=== PATIENT | female | born 1975 | race Caucasian/White ===

== ENCOUNTER 2018-08-04 18:26 | Emergency (ER) | payer MEDICAID ==
--- NOTE | 2018-08-04 19:16 | EDM.PDOC ---
ED HPI GENERAL MEDICAL PROBLEM - General Chief Complaint: ENT Problem Stated Complaint: FEVER AND SORE THROAT Time Seen by Provider: 08/04/18 18:56 Source of Information: Reports: Patient History Limitations: Reports: No Limitations - History of Present Illness INITIAL COMMENTS - FREE TEXT/NARRATIVE: Sick for about 1 week with mild aching and chills. a little sore throat and cough. Today seem like it's going into sinuses. Sent home from work. - Related Data Allergies Allergy/AdvReac Type Severity Reaction Status Date / Time codeine Allergy Hives Verified 08/04/18 18:46 meperidine [From Demerol] Allergy Nausea Verified 08/04/18 18:46 morphine Allergy Nausea Verified 08/04/18 18:46 venlafaxine [From Effexor] Allergy Diarrhea Verified 08/04/18 18:46 Home Meds: Home Meds NK [No Known Home Meds] 08/04/18 [History] Past Medical History Oncologic (Cancer) History: Reports: Breast - Past Surgical History HEENT Surgical History: Reports: Tonsillectomy GI Surgical History: Reports: Cholecystectomy Oncologic Surgical History: Reports: Mastectomy Social & Family History - Tobacco Use Smoking Status *Q: Former Smoker Used Tobacco, but Quit: Yes Month/Year Tobacco Last Used: 07/17 ED ROS ENT - Review of Systems Review Of Systems: ROS reveals no pertinent complaints other than HPI. ED EXAM, ENT - Physical Exam Exam: See Below Exam Limited By: No Limitations General Appearance: Alert, WD/WN, Mild Distress Eye Exam: Bilateral Eye: Normal Inspection Ears: Other (both tm's bulging slightly) Nose: Normal Inspection Mouth/Throat: Normal Inspection Head: Sinus Tenderness Neck: Normal Inspection Respiratory/Chest: Lungs Clear Cardiovascular: Regular Rate, Rhythm, No Murmur Extremities: Normal Inspection Neurological: Alert Psychiatric: Normal Affect Skin: Warm, Dry Course - Vital Signs Last Recorded V/S: Last Vital Signs Temp 35.6 C 08/04/18 18:53 Pulse 67 08/04/18 18:53 Resp 16 08/04/18 18:53 BP 140/86 08/04/18 18:53 Pulse Ox 98 08/04/18 18:53 Departure - Departure Time of Disposition: 19:16 Disposition: Home, Self-Care 01 Condition: Fair Clinical Impression: Sinusitis - Discharge Information Referrals: PCP,None [Primary Care Provider] - Additional Instructions: take the azithromycin as directed. Probably this began as a viral upper respiratory infection but now seems to be developing into a sinusitis. It may last another week.
== END 2018-08-04 19:24 | disposition home or self-care (01) ==
LOC: JP.ED 18:26
DX: J32.9 Chronic sinusitis, unspecified (principal); Z87.891 Personal history of nicotine dependence; Z88.5 Allergy status to narcotic agent; Z88.8 Allergy status to other drugs, medicaments and biological substances
CPT/HCPCS: 99283

== ENCOUNTER 2018-12-26 18:52 | Emergency (ER) | payer MEDICAID ==
[2018-12-26] MEDS ORDERED: Levothyroxine 112 MCG Tab PO ONE (19:53)
[2018-12-26] MEDS ORDERED: QUEtiapine 100 MG Tab PO STA (19:55)
[2018-12-26] MEDS ORDERED: FLUoxetine 20 MG Cap PO STA (19:56)
[2018-12-26] MEDS ORDERED: cloNIDine 0.1 MG Tab PO ONE (19:58)
--- NOTE | 2018-12-26 20:06 | EDM.PDOCBH ---
ED HPI GENERAL MEDICAL PROBLEM - General Chief Complaint: Behavioral/Psych Stated Complaint: SUICIDAL Time Seen by Provider: 12/26/18 19:50 Source of Information: Reports: Patient, EMS, RN History Limitations: Reports: No Limitations - History of Present Illness INITIAL COMMENTS - FREE TEXT/NARRATIVE: 43 yo female with an extensive psych hx presents mainly requesting refills of her clonidine. Has her other psych meds, but has been out of the clonidine for awhile due to missing her last 3 appts( two due to weather issues and one for a court hearing). Also, was taken off her thyroid medicine some time ago and would like this checked due to not feeling right. Is currently under a lot of stress and denies suicidal ideation. Onset: Gradual Duration: Week(s):, Getting Worse Location: Reports: Head, Generalized Quality: Reports: Other (no reported pain) Severity: Moderate Improves with: Reports: Medication Worsens with: Reports: Other (life stresses and being off her clonidine. ) Context: Reports: Other (increase in life stresses) Associated Symptoms: Reports: Other (insomnia) Treatments SUBSCRIPTION AGENT: Reports: Other (see below) (none) - Related Data Allergies Allergy/AdvReac Type Severity Reaction Status Date / Time adhesive tape Allergy Other Verified 12/26/18 19:31 codeine Allergy Hives Verified 12/26/18 19:31 cortisone Allergy Hives Verified 12/26/18 19:31 ketorolac [From Toradol] Allergy Other Verified 12/26/18 19:31 latex Allergy Rash Verified 12/26/18 19:31 lidocaine Allergy Swelling Verified 12/26/18 19:31 metoclopramide [From Reglan] Allergy Other Verified 12/26/18 19:31 venlafaxine [From Effexor] Allergy Diarrhea Verified 12/26/18 19:31 lorazepam [From Ativan] AdvReac Stomach Verified 12/26/18 19:31 Upset meperidine [From Demerol] AdvReac Nausea Verified 12/26/18 19:31 morphine AdvReac Nausea Verified 12/26/18 19:31 Home Meds: Home Meds FLUoxetine HCl [Prozac] 20 mg PO BEDTIME 11/22/18 [History] FLUoxetine HCl [Prozac] 40 mg PO DAILY 11/22/18 [History] Ibuprofen [Ibu] 800 mg PO QID PRN 11/22/18 [History] Nicotine [Habitrol] 14 mg TOP DAILY 11/22/18 [History] Omeprazole 40 mg PO DAILY 11/22/18 [History] QUEtiapine [SEROquel] 200 mg PO DAILY 11/22/18 [History] traZODone HCl [Trazodone HCl] 300 mg PO BEDTIME 11/22/18 [History] cloNIDine [cloNIDine HCl] 0.2 mg PO QID PRN 12/26/18 [History] Past Medical History Gastrointestinal History: Reports: [employer] History: Reports: Psychiatric History: Reports: Anxiety, Bipolar, Depression, Psych Hospitalization(s) Endocrine/Metabolic History: Reports: Hypothyroidism Oncologic (Cancer) History: Reports: Breast - Past Surgical History HEENT Surgical History: Reports: Tonsillectomy GI Surgical History: Reports: Cholecystectomy Female Surgical History: Reports: Breast Reconstruction, Hysterectomy, Oophorectomy Oncologic Surgical History: Reports: Mastectomy Social & Family History - Tobacco Use Smoking Status *Q: Former Smoker Used Tobacco, but Quit: Yes Month/Year Tobacco Last Used: gavi campos - Caffeine Use Caffeine Use: Reports: Coffee, Soda - Recreational Drug Use Recreational Drug Use: Yes Drug Use in Last 12 Months: Yes Recreational Drug Type: Reports: Marijuana/Hashish Recreational Drug Use Frequency: Socially ED ROS GENERAL - Review of Systems Review Of Systems: See Below Constitutional: Reports: Weight Loss HEENT: Reports: No Symptoms Respiratory: Reports: No Symptoms Cardiovascular: Reports: No Symptoms Endocrine: Reports: No Symptoms GI/Abdominal: Reports: No Symptoms : Reports: No Symptoms Musculoskeletal: Reports: No Symptoms Skin: Reports: No Symptoms Neurological: Reports: No Symptoms Psychiatric: Reports: Anxiety, Other (insomnia) ED EXAM, BEHAVIORAL HEALTH - Physical Exam Exam: See Below Exam Limited By: No Limitations General Appearance: Alert, WD/WN, No Apparent Distress Eye Exam: Bilateral Eye: Normal Inspection Ears: Normal External Exam, Normal Canal, Hearing Grossly Normal, Normal TMs Nose: Normal Inspection, No Blood Throat/Mouth: Normal Inspection, Normal Lips, Normal Oropharynx, Normal Voice, No Airway Compromise Head: Atraumatic, Normocephalic Neck: Normal Inspection, Supple, Non-Tender Respiratory/Chest: No Respiratory Distress, Lungs Clear, Normal Breath Sounds, No Accessory Muscle Use Cardiovascular: Regular Rate, Rhythm, No Edema GI/Abdominal: Normal Bowel Sounds, Soft, Non-Tender, No Distention Back Exam: Normal Inspection. No: CVA Tenderness (R), CVA Tenderness (L) Extremities: Normal Inspection, Normal Range of Motion, Non-Tender, No Pedal Edema Neurological: Alert, Normal Mood/Affect, CN II-XII Intact, Normal Cognition, No Motor/Sensory Deficits, Oriented x 3 Psychiatric: Alert, Normal Affect, Normal Cognition, Normal Mood, Oriented Skin Exam: Warm, Dry, Intact, Normal color, No rash COURSE, BEHAVIORAL HEALTH COMP - Course Vital Signs: Last Vital Signs Temp 35.5 C 12/26/18 19:21 Pulse 70 12/26/18 19:21 Resp 18 12/26/18 19:21 BP 108/77 12/26/18 19:21 Pulse Ox 97 12/26/18 19:21 Orders, Labs, Meds: Laboratory Tests 12/26/18 12/26/18 12/26/18 Range/Units 19:11 19:11 19:11 WBC 10.5 (4.5-11.0) K/uL RBC 4.50 (3.30-5.50) M/uL Hgb 13.6 (12.0-15.0) g/dL Hct 41.7 (36.0-48.0) % MCV 93 (80-98) fL MCH 30 (27-31) pg MCHC 33 (32-36) % Plt Count 339 (150-400) K/uL Sodium 141 (140-148) mmol/L Potassium 3.7 (3.6-5.2) mmol/L Chloride 104 (100-108) mmol/L Carbon Dioxide 26 (21-32) mmol/L Anion Gap 11.5 (5.0-14.0) mmol/L BUN 15 (7-18) mg/dL Creatinine 1.1 H (0.6-1.0) mg/dL Est Cr Clr Drug Dosing 58.73 mL/min Estimated GFR (MDRD) 54 L (>60) Glucose 89 (74-106) mg/dL Calcium 9.3 (8.5-10.1) mg/dL TSH, Ultra Sensitive 75.432 H (0.358-3.740) uIU/mL Urine Color Urine Appearance Urine pH (4.5-8.0) Ur Specific [place] (1.008-1.030) Urine Protein (NEGATIVE) mg/dL Urine Glucose (UA) (NEGATIVE) mg/dL Urine Ketones (NEGATIVE) mg/dL Urine Occult Blood (NEGATIVE) Urine Nitrite (NEGATIVE) Urine Bilirubin (NEGATIVE) Urine Urobilinogen (NORMAL) mg/dL Ur Leukocyte Esterase (NEGATIVE) Urine RBC (0-5) Urine WBC (0-5) Ur Epithelial Cells Amorphous Sediment Urine Bacteria Urine Mucus Urine Opiates Screen (NEGATIVE) Ur Oxycodone Screen (NEGATIVE) Urine Methadone Screen (NEGATIVE) Ur Propoxyphene Screen (NEGATIVE) Ur Barbiturates Screen (NEGATIVE) Ur Tricyclics Screen (NEGATIVE) Ur Phencyclidine Scrn (NEGATIVE) Ur Amphetamine Screen (NEGATIVE) U Methamphetamines Scrn (NEGATIVE) Urine MDMA Screen (NEGATIVE) U Benzodiazepines Scrn (NEGATIVE) U Cocaine Metab Screen (NEGATIVE) U Marijuana (THC) Screen (NEGATIVE) Ethyl Alcohol 3 mg/dL 12/26/18 12/26/18 Range/Units 19:28 19:28 WBC (4.5-11.0) K/uL RBC (3.30-5.50) M/uL Hgb (12.0-15.0) g/dL Hct (36.0-48.0) % MCV (80-98) fL MCH (27-31) pg MCHC (32-36) % Plt Count (150-400) K/uL Sodium (140-148) mmol/L Potassium (3.6-5.2) mmol/L Chloride (100-108) mmol/L Carbon Dioxide (21-32) mmol/L Anion Gap (5.0-14.0) mmol/L BUN (7-18) mg/dL Creatinine (0.6-1.0) mg/dL Est Cr Clr Drug Dosing mL/min Estimated GFR (MDRD) (>60) Glucose (74-106) mg/dL Calcium (8.5-10.1) mg/dL TSH, Ultra Sensitive (0.358-3.740) uIU/mL Urine Color Yellow Urine Appearance Clear Urine pH 5.0 (4.5-8.0) Ur Specific [place] 1.015 (1.008-1.030) Urine Protein Negative (NEGATIVE) mg/dL Urine Glucose (UA) Normal (NEGATIVE) mg/dL Urine Ketones Negative (NEGATIVE) mg/dL Urine Occult Blood Negative (NEGATIVE) Urine Nitrite Negative (NEGATIVE) Urine Bilirubin Negative (NEGATIVE) Urine Urobilinogen Normal (NORMAL) mg/dL Ur Leukocyte Esterase Negative (NEGATIVE) Urine RBC 0-5 (0-5) Urine WBC 0-5 (0-5) Ur Epithelial Cells Few Amorphous Sediment Few Urine Bacteria Not seen Urine Mucus Not seen Urine Opiates Screen Negative (NEGATIVE) Ur Oxycodone Screen Negative (NEGATIVE) Urine Methadone Screen Negative (NEGATIVE) Ur Propoxyphene Screen Negative (NEGATIVE) Ur Barbiturates Screen Negative (NEGATIVE) Ur Tricyclics Screen Negative (NEGATIVE) Ur Phencyclidine Scrn Negative (NEGATIVE) Ur Amphetamine Screen Negative (NEGATIVE) U Methamphetamines Scrn Negative (NEGATIVE) Urine MDMA Screen Negative (NEGATIVE) U Benzodiazepines Scrn Negative (NEGATIVE) U Cocaine Metab Screen Negative (NEGATIVE) U Marijuana (THC) Screen Negative (NEGATIVE) Ethyl Alcohol mg/dL Medications Discontinued Medications Generic Name Dose Route Start Last Admin Trade Name Freq PRN Reason Stop Dose Admin Clonidine HCl 0.2 mg 12/26/18 19:58 Catapres PO 12/26/18 19:59 ONETIME ONE Fluoxetine HCl 60 mg 12/26/18 19:56 Prozac PO 12/26/18 19:57 NOW STA Levothyroxine Sodium 224 mcg 12/26/18 19:53 Levothyroxine PO 12/26/18 19:54 ONETIME ONE Quetiapine Fumarate 200 mg 12/26/18 19:55 Seroquel PO 12/26/18 19:56 NOW STA Departure - Departure Time of Disposition: 20:20 Disposition: Home, Self-Care 01 Condition: Fair Clinical Impression: Anxiety Hypothyroidism Qualifiers: Hypothyroidism type: unspecified Qualified Code(s): E03.9 - Hypothyroidism, unspecified - Discharge Information *PRESCRIPTION DRUG MONITORING PROGRAM REVIEWED*: No *COPY OF PRESCRIPTION DRUG MONITORING REPORT IN PATIENT ELSA: No Instructions: Generalized Anxiety Disorder, Adult, Hypothyroidism Referrals: Jesus Johansen PA [Primary Care Provider] - Forms: ED Department Discharge Additional Instructions: Resume the thyroid medicine and clonidine as directed. Recheck with either your psychiatrist or your family doctor maureen. Return here as needed.
[2018-12-26] MEDS ORDERED: Levothyroxine 50 MCG Tab PO STA (20:21)
== END 2018-12-26 20:31 | disposition home or self-care (01) ==
LOC: JP.ED 18:52
DX: F41.9 Anxiety disorder, unspecified (principal); F31.9 Bipolar disorder, unspecified; E03.9 Hypothyroidism, unspecified; Z79.899 Other long term (current) drug therapy; Z91.040 Latex allergy status; Z87.891 Personal history of nicotine dependence
CPT/HCPCS: 36415; 80048; 80305; 81001; 84443; 85027; 99284; A9270; G0480

== ENCOUNTER 2019-02-25 11:02 | Emergency (ER) | payer MEDICAID ==
--- NOTE | 2019-02-25 12:10 | EDM.PDOC ---
ED HPI GENERAL MEDICAL PROBLEM - General Chief Complaint: Cardiovascular Problem Stated Complaint: TOOK ADDITONAL MEDICATION OVER WEEKEND Time Seen by Provider: 02/25/19 12:00 Source of Information: Reports: Patient, Provider History Limitations: Reports: No Limitations - History of Present Illness INITIAL COMMENTS - FREE TEXT/NARRATIVE: 43-year-old female had suicidal ideation 3 days ago, and took an overdose of Prozac and clonidine. She has felt ill all week and, has not been taking fluids and hasn't had anything to eat. She now feels like it was "stupid", but she did something similar when Prozac was attempted in the past. She has an appointment with a psychiatric provider in 2 weeks to change medicines. She did not her skin was turning orange so went into the clinic this morning to be evaluated, they found her systolic blood pressure to be 82 and her pulse to be 46 so sent her to the emergency room. She feels tired, weak, but is not complaining of pain , shortness of breath, nausea or vomiting or dysuria. She denies any current suicidal ideation. Associated Symptoms: Reports: Loss of Appetite, Malaise, Weakness. Denies: Confusion, Chest Pain, Fever/Chills Lower Back Pain Score (Numeric/FACES): 3 - Related Data Allergies Allergy/AdvReac Type Severity Reaction Status Date / Time adhesive tape Allergy Other Verified 12/26/18 19:31 codeine Allergy Hives Verified 12/26/18 19:31 cortisone Allergy Hives Verified 12/26/18 19:31 ketorolac [From Toradol] Allergy Other Verified 12/26/18 19:31 latex Allergy Rash Verified 12/26/18 19:31 lidocaine Allergy Swelling Verified 12/26/18 19:31 metoclopramide [From Reglan] Allergy Other Verified 12/26/18 19:31 venlafaxine [From Effexor] Allergy Diarrhea Verified 12/26/18 19:31 lorazepam [From Ativan] AdvReac Stomach Verified 12/26/18 19:31 Upset meperidine [From Demerol] AdvReac Nausea Verified 12/26/18 19:31 morphine AdvReac Nausea Verified 12/26/18 19:31 Home Meds: Home Meds FLUoxetine HCl [Prozac] 20 mg PO BEDTIME 11/22/18 [History] FLUoxetine HCl [Prozac] 40 mg PO DAILY 11/22/18 [History] Ibuprofen [Ibu] 800 mg PO QID PRN 11/22/18 [History] Omeprazole 40 mg PO DAILY 11/22/18 [History] Levothyroxine 125 mcg PO DAILY #30 tablet 12/26/18 [Rx] cloNIDine [cloNIDine HCl] 0.2 mg PO QID PRN 12/26/18 [History] Past Medical History Gastrointestinal History: Reports: [employer] History: Reports: Psychiatric History: Reports: Anxiety, Bipolar, Depression, Psych Hospitalization(s) Endocrine/Metabolic History: Reports: Hypothyroidism Oncologic (Cancer) History: Reports: Breast - Infectious Disease History Infectious Disease History: Reports: Chicken Pox - Past Surgical History HEENT Surgical History: Reports: Tonsillectomy GI Surgical History: Reports: Cholecystectomy Female Surgical History: Reports: Breast Reconstruction, Hysterectomy, Oophorectomy Oncologic Surgical History: Reports: Mastectomy Social & Family History - Tobacco Use Smoking Status *Q: Current Every Day Smoker Years of Tobacco use: 30 Packs/Tins Daily: 0.5 - Caffeine Use Caffeine Use: Reports: Coffee, Soda - Recreational Drug Use Recreational Drug Use: No ED ROS GENERAL - Review of Systems Review Of Systems: See Below Constitutional: Reports: Malaise, Decreased Appetite, Other (Feels very thirsty) . Denies: Fever, Chills HEENT: Denies: Vision Change Respiratory: Denies: Shortness of Breath Cardiovascular: Denies: Chest Pain GI/Abdominal: Reports: Other (Is very hungry). Denies: Abdominal Pain, Nausea Skin: Reports: Jaundice (Concern of jaundice changes of the skin and bruising easily) Neurological: Denies: Headache Psychiatric: Reports: Depression, Other (Chronic bipolar symptoms) ED EXAM, GENERAL - Physical Exam Exam: See Below Exam Limited By: No Limitations General Appearance: Alert, No Apparent Distress Eye Exam: Bilateral Eye: EOMI, Other (No obvious scleral icterus) Throat/Mouth: Normal Inspection Head: Atraumatic Respiratory/Chest: No Respiratory Distress, Lungs Clear Cardiovascular: Regular Rate, Rhythm GI/Abdominal: Non-Tender Extremities: No: Pedal Edema Neurological: Alert, Oriented Psychiatric: Depressed Mood, Flat Affect Skin Exam: Warm, Dry Course - Vital Signs Last Recorded V/S: Last Vital Signs Temp 95.6 F 02/25/19 11:42 Pulse 50 L 02/25/19 11:42 Resp 10 L 02/25/19 11:42 BP 105/54 L 02/25/19 11:42 Pulse Ox 99 02/25/19 11:42 - Orders/Labs/Meds Labs: Laboratory Tests 02/25/19 02/25/19 02/25/19 Range/Units 12:16 12:16 12:35 WBC 6.8 (4.5-11.0) K/uL RBC 4.32 (3.30-5.50) M/uL Hgb 13.1 (12.0-15.0) g/dL Hct 40.2 (36.0-48.0) % MCV 93 (80-98) fL MCH 30 (27-31) pg MCHC 33 (32-36) % Plt Count 256 (150-400) K/uL Neut % (Auto) 55 (36-66) % Lymph % (Auto) 35 (24-44) % [place] % (Auto) 9 H (2-6) % Eos % (Auto) 1 L (2-4) % Baso % (Auto) 0 (0-1) % Sodium 139 L (140-148) mmol/L Potassium 3.7 (3.6-5.2) mmol/L Chloride 102 (100-108) mmol/L Carbon Dioxide 27 (21-32) mmol/L Anion Gap 13.7 (5.0-14.0) mmol/L BUN 12 (7-18) mg/dL Creatinine 0.9 (0.6-1.0) mg/dL Est Cr Clr Drug Dosing 71.78 mL/min Estimated GFR (MDRD) > 60 (>60) Glucose 89 (74-106) mg/dL Calcium 8.9 (8.5-10.1) mg/dL Total Bilirubin 0.6 (0.2-1.0) mg/dL AST 39 H (15-37) U/L ALT 41 (12-78) U/L Alkaline Phosphatase 76 (46-116) U/L Total Protein 6.5 (6.4-8.2) g/dL Albumin 3.2 L (3.4-5.0) g/dL Globulin 3.3 (2.3-3.5) g/dL Albumin/Globulin Ratio 1.0 L (1.2-2.2) Urine Color Yellow Urine Appearance Slightly cloudy Urine pH 6.0 (4.5-8.0) Ur Specific [place] 1.010 (1.008-1.030) Urine Protein Negative (NEGATIVE) mg/dL Urine Glucose (UA) Normal (NEGATIVE) mg/dL Urine Ketones 15 H (NEGATIVE) mg/dL Urine Occult Blood Negative (NEGATIVE) Urine Nitrite Negative (NEGATIVE) Urine Bilirubin Negative (NEGATIVE) Urine Urobilinogen Normal (NORMAL) mg/dL Ur Leukocyte Esterase Negative (NEGATIVE) Urine Opiates Screen (NEGATIVE) Ur Oxycodone Screen (NEGATIVE) Urine Methadone Screen (NEGATIVE) Ur Propoxyphene Screen (NEGATIVE) Ur Barbiturates Screen (NEGATIVE) Ur Tricyclics Screen (NEGATIVE) Ur Phencyclidine Scrn (NEGATIVE) Ur Amphetamine Screen (NEGATIVE) U Methamphetamines Scrn (NEGATIVE) Urine MDMA Screen (NEGATIVE) U Benzodiazepines Scrn (NEGATIVE) U Cocaine Metab Screen (NEGATIVE) U Marijuana (THC) Screen (NEGATIVE) 02/25/19 Range/Units 12:35 WBC (4.5-11.0) K/uL RBC (3.30-5.50) M/uL Hgb (12.0-15.0) g/dL Hct (36.0-48.0) % MCV (80-98) fL MCH (27-31) pg MCHC (32-36) % Plt Count (150-400) K/uL Neut % (Auto) (36-66) % Lymph % (Auto) (24-44) % [place] % (Auto) (2-6) % Eos % (Auto) (2-4) % Baso % (Auto) (0-1) % Sodium (140-148) mmol/L Potassium (3.6-5.2) mmol/L Chloride (100-108) mmol/L Carbon Dioxide (21-32) mmol/L Anion Gap (5.0-14.0) mmol/L BUN (7-18) mg/dL Creatinine (0.6-1.0) mg/dL Est Cr Clr Drug Dosing mL/min Estimated GFR (MDRD) (>60) Glucose (74-106) mg/dL Calcium (8.5-10.1) mg/dL Total Bilirubin (0.2-1.0) mg/dL AST (15-37) U/L ALT (12-78) U/L Alkaline Phosphatase (46-116) U/L Total Protein (6.4-8.2) g/dL Albumin (3.4-5.0) g/dL Globulin (2.3-3.5) g/dL Albumin/Globulin Ratio (1.2-2.2) Urine Color Urine Appearance Urine pH (4.5-8.0) Ur Specific [place] (1.008-1.030) Urine Protein (NEGATIVE) mg/dL Urine Glucose (UA) (NEGATIVE) mg/dL Urine Ketones (NEGATIVE) mg/dL Urine Occult Blood (NEGATIVE) Urine Nitrite (NEGATIVE) Urine Bilirubin (NEGATIVE) Urine Urobilinogen (NORMAL) mg/dL Ur Leukocyte Esterase (NEGATIVE) Urine Opiates Screen Negative (NEGATIVE) Ur Oxycodone Screen Negative (NEGATIVE) Urine Methadone Screen Negative (NEGATIVE) Ur Propoxyphene Screen Negative (NEGATIVE) Ur Barbiturates Screen Negative (NEGATIVE) Ur Tricyclics Screen Negative (NEGATIVE) Ur Phencyclidine Scrn Negative (NEGATIVE) Ur Amphetamine Screen Negative (NEGATIVE) U Methamphetamines Scrn Negative (NEGATIVE) Urine MDMA Screen Negative (NEGATIVE) U Benzodiazepines Scrn Negative (NEGATIVE) U Cocaine Metab Screen Negative (NEGATIVE) U Marijuana (THC) Screen Negative (NEGATIVE) Meds: Medications Discontinued Medications Generic Name Dose Route Start Last Admin Trade Name Rudyq PRN Reason Stop Dose Admin Sodium Chloride 1,000 mls @ 1,000 mls/hr 02/25/19 12:15 02/25/19 12:15 Normal Saline IV 1,000 mls/hr [facility]ED [facility] Administration - Re-Assessments/Exams Free Text/Narrative Re-Assessment/Exam: 02/25/19 12:09 Patient was allowed to drink water, she'll be given 1 L bolus of normal saline and a CBC and CMP obtained. Her blood pressure on arrival to the emergency room was 101/54. 02/25/19 13:03 CBC and CMP returned reassuring, basically within normal limits. UA was negative and urine drug screen was negative. Patient was allowed to drink water as well as receiving IV fluids and tolerated both well. She is going to increase activity and diet as tolerated. The bradycardia and hypotension is probably still some residual effects of the clonidine. She'll return if she redevelops symptoms or feels she is worsening. Departure - Departure Time of Disposition: 13:34 Disposition: Home, Self-Care 01 Clinical Impression: Hypotension due to medication, Dehydration Drug overdose, intentional Qualifiers: Encounter type: initial encounter Qualified Code(s): T50.902A - Poisoning by unspecified drugs, medicaments and biological substances, intentional self-harm , initial encounter Instructions: Self-Harming Behavior Information Referrals: Lopez Martin MD [Primary Care Provider] - Forms: ED Department Discharge Care Plan Goals: Increase diet and activity as tolerated, stay hydrated and follow up as scheduled. Return anytime if worsening or concerns.
[2019-02-25] MEDS ORDERED: Sodium Chloride 0.9% 1,000 ML IV SCH (12:15)
== END 2019-02-25 13:35 | disposition home or self-care (01) ==
LOC: JP.ED 11:02
DX: T43.221A Poisoning by selective serotonin reuptake inhibitors, accidental (unintentional), initial encounter (principal); T46.5X1A Poisoning by other antihypertensive drugs, accidental (unintentional), initial encounter; I95.2 Hypotension due to drugs; F17.210 Nicotine dependence, cigarettes, uncomplicated; K21.9 Gastro-esophageal reflux disease without esophagitis; F31.9 Bipolar disorder, unspecified; F41.9 Anxiety disorder, unspecified; E03.9 Hypothyroidism, unspecified; Z79.899 Other long term (current) drug therapy; Z88.5 Allergy status to narcotic agent; Z91.040 Latex allergy status; Z88.8 Allergy status to other drugs, medicaments and biological substances; Z88.6 Allergy status to analgesic agent
CPT/HCPCS: 36415; 80053; 80305; 81003; 85025; 96360; 99284; J7030

== ENCOUNTER 2019-03-23 07:39 | Emergency (ER) | payer MEDICAID ==
[2019-03-23] MEDS ORDERED: HYDROmorphone 1 MG/ML Syringe IM ONE (08:46)
--- NOTE | 2019-03-23 08:47 | EDM.PDOC ---
ED HPI GENERAL MEDICAL PROBLEM - General Chief Complaint: Upper Extremity Injury/Pain Stated Complaint: RIGHT ARM NUMBNESS, BACK PAIN Time Seen by Provider: 03/23/19 08:30 Source of Information: Reports: Patient History Limitations: Reports: No Limitations - History of Present Illness INITIAL COMMENTS - FREE TEXT/NARRATIVE: 43-year-old female who has chronic neck arthritis, chronic neck pain with occasional right arm radiculopathy was at the chiropractor yesterday for a manipulation. Today she has serious discomfort radiating from the neck to the shoulder into the right hand, is having difficulty holding onto a door handle some coffee cups due to pain and weakness, and has paresthesias in the thumb and first finger. It has never been "this bad". 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 Chiropractic treatment has not helped) Right Arm Pain Score (Numeric/FACES): 5 - Related Data Allergies Allergy/AdvReac Type Severity Reaction Status Date / Time adhesive tape Allergy Other Verified 12/26/18 19:31 codeine Allergy Hives Verified 12/26/18 19:31 cortisone Allergy Hives Verified 12/26/18 19:31 ketorolac [From Toradol] Allergy Other Verified 12/26/18 19:31 latex Allergy Rash Verified 12/26/18 19:31 lidocaine Allergy Swelling Verified 12/26/18 19:31 metoclopramide [From Reglan] Allergy Other Verified 12/26/18 19:31 venlafaxine [From Effexor] Allergy Diarrhea Verified 12/26/18 19:31 lorazepam [From Ativan] AdvReac Stomach Verified 12/26/18 19:31 Upset meperidine [From Demerol] AdvReac Nausea Verified 12/26/18 19:31 morphine AdvReac Nausea Verified 12/26/18 19:31 Home Meds: Home Meds FLUoxetine HCl [Prozac] 20 mg PO BEDTIME 11/22/18 [History] FLUoxetine HCl [Prozac] 40 mg PO DAILY 11/22/18 [History] Ibuprofen [Ibu] 800 mg PO QID PRN 11/22/18 [History] Omeprazole 40 mg PO DAILY 11/22/18 [History] Levothyroxine 125 mcg PO DAILY #30 tablet 12/26/18 [Rx] cloNIDine [cloNIDine HCl] 0.2 mg PO QID PRN 12/26/18 [History] Past Medical History - Past Health History Medical/Surgical History: Denies Medical/Surgical History Gastrointestinal History: Reports: GERD 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: Psychiatric History: Reports: Anxiety, Bipolar, Depression, Psych Hospitalization(s) Endocrine/Metabolic History: Reports: Hypothyroidism Oncologic (Cancer) History: Reports: Breast - Infectious Disease History Infectious Disease History: Reports: Chicken Pox - Past Surgical History HEENT Surgical History: Reports: Tonsillectomy GI Surgical History: Reports: Cholecystectomy Female Surgical History: Reports: Breast Reconstruction, Hysterectomy, Oophorectomy Oncologic Surgical History: Reports: Mastectomy Social & Family History - Tobacco Use Smoking Status *Q: Current Every Day Smoker Years of Tobacco use: 20 Packs/Tins Daily: 0.5 - Caffeine Use Caffeine Use: Reports: Coffee, Soda - Recreational Drug Use Recreational Drug Use: No Review of Systems - Review of Systems Review Of Systems: See Below Constitutional: Denies: Fever Respiratory: Reports: No Symptoms Cardiovascular: Reports: No Symptoms GI/Abdominal: Reports: No Symptoms Musculoskeletal: Reports: Other (Significant right arm shoulder wrist and hand pain especially with movement) Skin: Reports: No Symptoms ED EXAM, GENERAL - Physical Exam Exam: See Below Exam Limited By: No Limitations General Appearance: Alert, Mild Distress (Tearful, very uncomfortable) Eye Exam: Bilateral Eye: Normal Inspection Head: Atraumatic Neck: Other (Paracervical tenderness on the right side) Respiratory/Chest: No Respiratory Distress Neurological: Alert, Oriented, Other Psychiatric: Depressed Mood, Tearful Skin Exam: Warm, Dry (Right hand grasp strength is weak, unknown if from pain or muscle weakness. She does have objective sensation loss to the thumb and index finger.) Course - Vital Signs Last Recorded V/S: Last Vital Signs Temp 97.5 F 03/23/19 08:01 Pulse 76 03/23/19 08:01 Resp 16 03/23/19 08:01 BP 121/89 03/23/19 08:01 Pulse Ox 98 03/23/19 08:01 - Orders/Labs/Meds Meds: Medications Discontinued Medications Generic Name Dose Route Start Last Admin Trade Name Freq PRN Reason Stop Dose Admin Hydromorphone HCl 1 mg 03/23/19 08:46 03/23/19 08:52 Dilaudid IM 03/23/19 08:47 1 mg ONETIME ONE Administration - Re-Assessments/Exams Free Text/Narrative Re-Assessment/Exam: 03/23/19 08:55 A regular C-spine x-ray was reviewed from last fall, there was significant C4- C5 and C5-C6 arthropathy. She likely has a C6 radiculopathy at this time. An MRI would be very helpful, I did call [facility] and talked to their emergency room physician and he did say that was available if she arrived. Patient was given 1 mg of Dilaudid IM for pain control and will consider going to [place] today for further evaluation in the emergency room. Departure - Departure Time of Disposition: 09:11 Disposition: Home, Self-Care 01 Clinical Impression: Cervical radiculopathy at C6 - Discharge Information Instructions: Cervical Radiculopathy Referrals: Lopez Martin MD [Primary Care Provider] - Forms: ED Department Discharge Care Plan Goals: Consider reevaluating her neck pain in [place] this weekend as you will be able to obtain an MRI.
== END 2019-03-23 09:13 | disposition home or self-care (01) ==
LOC: JP.ED 07:39
DX: M54.12 Radiculopathy, cervical region (principal); K21.9 Gastro-esophageal reflux disease without esophagitis; F41.9 Anxiety disorder, unspecified; F31.9 Bipolar disorder, unspecified; E03.9 Hypothyroidism, unspecified; F17.210 Nicotine dependence, cigarettes, uncomplicated; Z88.5 Allergy status to narcotic agent; Z91.040 Latex allergy status; Z79.899 Other long term (current) drug therapy; Z88.8 Allergy status to other drugs, medicaments and biological substances
CPT/HCPCS: 96372; 99283; J1170

== ENCOUNTER 2019-03-26 14:33 | Emergency (ER) | payer MEDICAID ==
[2019-03-26] MEDS ORDERED: HYDROmorphone 1 MG/ML Syringe IM ONE (16:23)
--- NOTE | 2019-03-26 16:28 | EDM.PDOC ---
ED HPI GENERAL MEDICAL PROBLEM - General Chief Complaint: Upper Extremity Injury/Pain Stated Complaint: RIGHT HAND NUMB, PAIN Time Seen by Provider: 03/26/19 16:10 Source of Information: Reports: Patient, Old Records History Limitations: Reports: No Limitations - History of Present Illness INITIAL COMMENTS - FREE TEXT/NARRATIVE: 43 yo female returns to the ER for pain/numbness in her R thumb, index and long finger along with neck pain. Has had this for several days and was seen here for this same problem a couple days ago by Dr. Duffy. She got some relief at that time by IM Dilaudid and would like more of this. She has an appt tomorrow with Dr. Martin and an MRI of her neck. Needs a note for work also. 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: Other (see below) (none today reported) Right Neck Pain Score (Numeric/FACES): 8 - Related Data Allergies Allergy/AdvReac Type Severity Reaction Status Date / Time adhesive tape Allergy Other Verified 12/26/18 19:31 codeine Allergy Hives Verified 12/26/18 19:31 cortisone Allergy Hives Verified 12/26/18 19:31 ketorolac [From Toradol] Allergy Rash Verified 03/26/19 15:26 latex Allergy Rash Verified 12/26/18 19:31 lidocaine Allergy Swelling Verified 12/26/18 19:31 metoclopramide [From Reglan] Allergy Nausea Verified 03/26/19 15:26 venlafaxine [From Effexor] Allergy Diarrhea Verified 12/26/18 19:31 lorazepam [From Ativan] AdvReac Stomach Verified 12/26/18 19:31 Upset meperidine [From Demerol] AdvReac Nausea Verified 12/26/18 19:31 morphine AdvReac Nausea Verified 12/26/18 19:31 Home Meds: Home Meds FLUoxetine HCl [Prozac] 20 mg PO BEDTIME 11/22/18 [History] FLUoxetine HCl [Prozac] 40 mg PO DAILY 11/22/18 [History] Ibuprofen [Ibu] 800 mg PO QID PRN 11/22/18 [History] Omeprazole 40 mg PO DAILY 11/22/18 [History] Levothyroxine 125 mcg PO DAILY #30 tablet 12/26/18 [Rx] cloNIDine [cloNIDine HCl] 0.2 mg PO QID PRN 12/26/18 [History] Past Medical History - Past Health History Medical/Surgical History: Denies Medical/Surgical History Gastrointestinal History: Reports: GERD 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: Psychiatric History: Reports: Anxiety, Bipolar, Depression, Psych Hospitalization(s) Endocrine/Metabolic History: Reports: Hypothyroidism Oncologic (Cancer) History: Reports: Breast - Infectious Disease History Infectious Disease History: Reports: Chicken Pox - Past Surgical History HEENT Surgical History: Reports: Tonsillectomy GI Surgical History: Reports: Cholecystectomy Female Surgical History: Reports: Breast Reconstruction, Hysterectomy, Oophorectomy Oncologic Surgical History: Reports: Mastectomy Social & Family History - Tobacco Use Smoking Status *Q: Heavy Tobacco Smoker Years of Tobacco use: 25 Packs/Tins Daily: 0.2 - Caffeine Use Caffeine Use: Reports: Coffee, Energy Drinks, Soda - Recreational Drug Use Recreational Drug Use: No Review of Systems - Review of Systems Review Of Systems: See Below Constitutional: Reports: No Symptoms Musculoskeletal: Reports: Neck Pain (R side) Skin: Reports: No Symptoms Neurological: Reports: Numbness (R hand in radial nerve distribution) ED EXAM, GENERAL - Physical Exam Exam: See Below Exam Limited By: No Limitations General Appearance: Alert, WD/WN, Anxious, Mild Distress Eye Exam: Bilateral Eye: PERRL (pinpoint bilat.) Ears: Normal External Exam, Hearing Grossly Normal Ear Exam: Bilateral Ear: Auricle Normal, Canal Normal Nose: Normal Inspection, No Blood Throat/Mouth: Normal Lips, Normal Voice, No Airway Compromise Head: Atraumatic, Normocephalic Neck: Limited Range of Motion, Tender Lateral (right). No: Normal Inspection, Supple, Non-Tender, Lymphadenopathy (R), Lymphadenopathy (L) Respiratory/Chest: No Respiratory Distress, No Accessory Muscle Use Extremities: Normal Inspection, No Pedal Edema Neurological: Alert, Oriented, CN II-XII Intact, Normal Cognition, Other ( subjective numbness to the R thumb, index, and long fingers.) Psychiatric: Normal Affect, Normal Mood Skin Exam: Warm, Dry, Intact, Normal Color, No Rash Course - Vital Signs Text/Narrative:: patient's pupils likely constricted from her clonidine, will check a drug urine to be sure. Last Recorded V/S: Last Vital Signs Temp 36.3 C 03/26/19 15:22 Pulse 80 03/26/19 15:22 Resp 16 03/26/19 15:22 BP 119/82 03/26/19 15:22 Pulse Ox 98 03/26/19 15:22 - Orders/Labs/Meds Orders: Active Orders 24 hr Category Date Time Status DRUG SCREEN, URINE [URCHEM] Stat Lab 03/26/19 16:30 Ordered Meds: Medications Discontinued Medications Generic Name Dose Route Start Last Admin Trade Name Freq PRN Reason Stop Dose Admin Hydromorphone HCl 1 mg 03/26/19 16:23 03/26/19 16:25 Dilaudid IM 03/26/19 16:24 1 mg ONETIME ONE Administration Departure - Departure Time of Disposition: 16:45 Disposition: Home, Self-Care 01 Condition: Fair Clinical Impression: Cervical nerve root impingement - Discharge Information *PRESCRIPTION DRUG MONITORING PROGRAM REVIEWED*: No *COPY OF PRESCRIPTION DRUG MONITORING REPORT IN PATIENT ELSA: No Referrals: Lopez Martin MD [Primary Care Provider] - Forms: ED Department Discharge Additional Instructions: No driving today. F/U tomorrow with your doctor to further your work up. Get any meds needed to manage this problem from your doctor going forward. - My Orders Last 24 Hours: My Active Orders 03/26/19 16:30 DRUG SCREEN, URINE [URCHEM] Stat - Assessment/Plan Last 24 Hours: My Active Orders 03/26/19 16:30 DRUG SCREEN, URINE [URCHEM] Stat
[2019-03-26] MEDS ORDERED: Ondansetron 4 MG Tab.DIS PO ONE (16:38)
== END 2019-03-26 16:56 | disposition home or self-care (01) ==
LOC: JP.ED 14:33
DX: G54.2 Cervical root disorders, not elsewhere classified (principal); K21.9 Gastro-esophageal reflux disease without esophagitis; F32.9 Major depressive disorder, single episode, unspecified; E03.9 Hypothyroidism, unspecified; F17.210 Nicotine dependence, cigarettes, uncomplicated; Z90.49 Acquired absence of other specified parts of digestive tract; Z98.890 Other specified postprocedural states; Z90.710 Acquired absence of both cervix and uterus; Z79.899 Other long term (current) drug therapy; Z88.8 Allergy status to other drugs, medicaments and biological substances; Z88.6 Allergy status to analgesic agent; Z91.040 Latex allergy status; Z88.5 Allergy status to narcotic agent; Z91.09 Other allergy status, other than to drugs and biological substances
CPT/HCPCS: 80305; 96372; 99283; J1170

== ENCOUNTER 2019-04-02 23:05 | Emergency (ER) | payer MEDICAID ==
[2019-04-02] MEDS ORDERED: Bupivacaine 0.5% 10 ML SDV INJECT ONE (23:29)
--- NOTE | 2019-04-02 23:57 | EDM.PDOC ---
ED HPI GENERAL MEDICAL PROBLEM - General Chief Complaint: Upper Extremity Injury/Pain Stated Complaint: LEFT HAND SLAMMED IN DOOR Time Seen by Provider: 04/02/19 23:25 Source of Information: Reports: Patient, Family History Limitations: Reports: No Limitations - History of Present Illness INITIAL COMMENTS - FREE TEXT/NARRATIVE: 43-year-old female crushed her middle finger on her left hand in a door prior to coming into the emergency room. She has a transverse laceration across the dorsal aspect of the distal finger with some deformity. There is also a ring on the finger. No other injury. 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, Dressing(s) Left Finger Pain Score (Numeric/FACES): 10 - Related Data Allergies Allergy/AdvReac Type Severity Reaction Status Date / Time adhesive tape Allergy Other Verified 04/02/19 23:21 codeine Allergy Hives Verified 04/02/19 23:21 cortisone Allergy Hives Verified 04/02/19 23:21 ketorolac [From Toradol] Allergy Rash Verified 04/02/19 23:21 latex Allergy Rash Verified 04/02/19 23:21 lidocaine Allergy Swelling Verified 04/02/19 23:21 metoclopramide [From Reglan] Allergy Nausea Verified 04/02/19 23:21 venlafaxine [From Effexor] Allergy Diarrhea Verified 04/02/19 23:21 lorazepam [From Ativan] AdvReac Stomach Verified 04/02/19 23:21 Upset meperidine [From Demerol] AdvReac Nausea Verified 04/02/19 23:21 morphine AdvReac Nausea Verified 04/02/19 23:21 Home Meds: Home Meds FLUoxetine HCl [Prozac] 20 mg PO BEDTIME 11/22/18 [History] FLUoxetine HCl [Prozac] 40 mg PO DAILY 11/22/18 [History] Ibuprofen [Ibu] 800 mg PO QID PRN 11/22/18 [History] Omeprazole 40 mg PO DAILY 11/22/18 [History] Levothyroxine 125 mcg PO DAILY #30 tablet 12/26/18 [Rx] cloNIDine [cloNIDine HCl] 0.2 mg PO QID PRN 12/26/18 [History] Gabapentin [Neurontin] 300 mg PO BID 04/02/19 [History] Past Medical History - Past Health History Medical/Surgical History: Denies Medical/Surgical History Gastrointestinal History: Reports: GERD 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: Psychiatric History: Reports: Anxiety, Bipolar, Depression, Psych Hospitalization(s) Endocrine/Metabolic History: Reports: Hypothyroidism Oncologic (Cancer) History: Reports: Breast - Infectious Disease History Infectious Disease History: Reports: Chicken Pox - Past Surgical History HEENT Surgical History: Reports: Tonsillectomy GI Surgical History: Reports: Cholecystectomy Female Surgical History: Reports: Breast Reconstruction, Hysterectomy, Oophorectomy Oncologic Surgical History: Reports: Mastectomy Social & Family History - Caffeine Use Caffeine Use: Reports: Coffee, Energy Drinks, Soda Review of Systems - Review of Systems Review Of Systems: See Below Constitutional: Denies: Fever Respiratory: Denies: Shortness of Breath Cardiovascular: Denies: Chest Pain GI/Abdominal: Denies: Nausea, Vomiting Skin: Reports: Bruising (Some bruising his formed around the distal finger injury) Neurological: Reports: Paresthesia (Some numbness of the tip of the finger) ED EXAM, GENERAL - Physical Exam Exam: See Below Exam Limited By: No Limitations General Appearance: Alert, Anxious, Moderate Distress Head: Atraumatic Respiratory/Chest: No Respiratory Distress, Lungs Clear Cardiovascular: Regular Rate, Rhythm Extremities: Other (Exam is otherwise limited to the left hand. Patient has a ring at the base of the middle finger, and a crush injury from the PIP joint through the distal finger with a transverse laceration over the DIP joint. She is able to extend the finger at the PIP joint, even to a point of hyperextension. She is unable to extend at the DIP joint.) Course - Vital Signs Last Recorded V/S: Last Vital Signs Temp 97.7 F 04/02/19 23:50 Pulse 102 H 04/02/19 23:50 Resp 18 04/02/19 23:50 BP 143/88 H 04/02/19 23:50 Pulse Ox 99 04/02/19 23:50 - Orders/Labs/Meds Meds: Medications Discontinued Medications Generic Name Dose Route Start Last Admin Trade Name Freq PRN Reason Stop Dose Admin Hydrocodone Bitart/Acetaminophen 1 tab 04/03/19 00:57 04/03/19 01:11 [place] 325-10 Mg PO 04/03/19 00:58 1 tab ONETIME ONE Administration Bacitracin 1 dose 04/03/19 00:57 04/03/19 01:12 Bacitracin Oint 1 Gm TOP 04/03/19 00:58 1 dose ONETIME ONE Administration Bupivacaine HCl 10 ml 04/02/19 23:29 04/02/19 23:38 Sensorcaine-Mpf 0.5% INJECT 04/02/19 23:30 10 ml ONETIME ONE Administration Cephalexin 500 mg 04/03/19 01:00 04/03/19 01:12 Keflex PO 04/03/19 01:01 500 mg ONETIME ONE Administration - Re-Assessments/Exams Free Text/Narrative Re-Assessment/Exam: 04/02/19 23:59 After sterilizing the base of the finger, a 0.5% Marcaine digital block was applied. After anesthesia, the ring was then cut and removed, followed by an x- ray of the finger. 04/03/19 00:56 Finger x-ray shows a comminuted tuft fracture of the middle finger and index finger. The wound and finger were cleaned thoroughly with saline, and 3 4-0 Ethilon sutures were used to close the laceration. Topical bacitracin was applied and she was placed a tube gauze which should hold the finger in extension, and should be reexamined by orthopedics as she may have a extensor tendon injury at the DIP, or possibly a flexor tendon injury on the palmar surface of the finger. She'll be placed on hydrocodone for pain and cephalexin until reevaluated by orthopedics. She is going to call for an appointment tomorrow, and keep the tube gauze on until her recheck. Departure - Departure Time of Disposition: 01:18 Disposition: Home, Self-Care 01 Condition: Good Clinical Impression: Closed fracture of tuft of distal phalanx of finger, Mallet finger of left hand Finger laceration with complication Qualifiers: Encounter type: initial encounter Qualified Code(s): S61.219A - Laceration without foreign body of unspecified finger without damage to nail, initial encounter - Discharge Information Instructions: Finger Fracture, Adult, [id number] Referrals: Lopez Martin MD [Primary Care Provider] - Forms: ED Department Discharge Care Plan Goals: Keep the tube gauze on finger until rechecked by Dr. Castro in the next 2 days, call tomorrow morning for an appointment. Fill your medications and take as directed.
--- NOTE | 2019-04-03 00:35 | CRLCR ---
Indication: Crush injury Technique: Three views Comparison: None Findings/Impression: There is a comminuted fracture of the tuft of the left 3rd digit with fragmentation and 1 millimeter distraction. There is also a comminuted tuft fracture of the left 2nd digit without significant distraction or displacement. No dislocation. Mild soft tissue swelling. Dictated by Hal Ruth MD @ Apr 03 2019 12:32AM Signed by Dr. Hal Ruth @ Apr 03 2019 12:34AM
[2019-04-03] MEDS ORDERED: Acetaminophen/HYDROcodone 325-10 MG Tab PO ONE (00:57)
[2019-04-03] MEDS ORDERED: Bacitracin Oint 1 GM U/D Packet TOP ONE (00:57)
[2019-04-03] MEDS ORDERED: Cephalexin 250 MG Cap PO ONE (01:00)
== END 2019-04-03 01:21 | disposition home or self-care (01) ==
LOC: JP.ED 23:05
DX: S62.633A Displaced fracture of distal phalanx of left middle finger, initial encounter for closed fracture (principal); S62.631A Displaced fracture of distal phalanx of left index finger, initial encounter for closed fracture; M20.012 Mallet finger of left finger(s); K21.9 Gastro-esophageal reflux disease without esophagitis; E03.9 Hypothyroidism, unspecified; Z88.5 Allergy status to narcotic agent; Z91.040 Latex allergy status; Z88.8 Allergy status to other drugs, medicaments and biological substances; Z88.6 Allergy status to analgesic agent; Z79.899 Other long term (current) drug therapy; Z98.890 Other specified postprocedural states; Z90.49 Acquired absence of other specified parts of digestive tract; Z90.710 Acquired absence of both cervix and uterus; W23.0XXA Caught, crushed, jammed, or pinched between moving objects, initial encounter
CPT/HCPCS: 12002; 73140; 99283; A9270; J3490

== ENCOUNTER 2019-04-04 11:07 | Emergency (ER) | payer MEDICAID ==
[2019-04-04] MEDS ORDERED: oxyCODONE 5 MG Tab PO ONE (11:40)
[2019-04-04] MEDS ORDERED: Bacitracin Oint 1 GM U/D Packet TOP ONE (11:41)
--- NOTE | 2019-04-04 11:47 | EDM.PDOC ---
ED HPI GENERAL MEDICAL PROBLEM - General Chief Complaint: Upper Extremity Injury/Pain Stated Complaint: LT MIDDLE FINGER SPLIT OPEN Time Seen by Provider: 04/04/19 11:30 Source of Information: Reports: Patient, Old Records History Limitations: Reports: No Limitations - History of Present Illness INITIAL COMMENTS - FREE TEXT/NARRATIVE: 43 yo female is here for a re-injury of a mallet finger from a recent injury. Today bumped the finger and has increased pain. Is due to see orthopedics regarding her mallet finger early this afternoon. Took acetaminophen before arrival and states is allergic to Toradol. She says she was not prescribed a finger splint for her mallet finger. 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 - Related Data Allergies Allergy/AdvReac Type Severity Reaction Status Date / Time adhesive tape Allergy Other Verified 04/04/19 11:27 codeine Allergy Hives Verified 04/04/19 11:27 cortisone Allergy Hives Verified 04/04/19 11:27 ketorolac [From Toradol] Allergy Rash Verified 04/04/19 11:27 latex Allergy Rash Verified 04/04/19 11:27 lidocaine Allergy Swelling Verified 04/04/19 11:27 metoclopramide [From Reglan] Allergy Nausea Verified 04/04/19 11:27 venlafaxine [From Effexor] Allergy Diarrhea Verified 04/04/19 11:27 lorazepam [From Ativan] AdvReac Stomach Verified 04/04/19 11:27 Upset meperidine [From Demerol] AdvReac Nausea Verified 04/04/19 11:27 morphine AdvReac Nausea Verified 04/04/19 11:27 Home Meds: Home Meds FLUoxetine HCl [Prozac] 20 mg PO BEDTIME 11/22/18 [History] FLUoxetine HCl [Prozac] 40 mg PO DAILY 11/22/18 [History] Ibuprofen [Ibu] 800 mg PO QID PRN 11/22/18 [History] Omeprazole 40 mg PO DAILY 11/22/18 [History] Levothyroxine 125 mcg PO DAILY #30 tablet 12/26/18 [Rx] cloNIDine [cloNIDine HCl] 0.2 mg PO QID PRN 12/26/18 [History] Gabapentin [Neurontin] 300 mg PO BID 04/02/19 [History] Past Medical History - Past Health History Medical/Surgical History: Denies Medical/Surgical History Gastrointestinal History: Reports: GERD 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: Musculoskeletal History: Reports: Fracture Other Musculoskeletal History: left middle finger fracture Psychiatric History: Reports: Anxiety, Bipolar, Depression, Psych Hospitalization(s) Endocrine/Metabolic History: Reports: Hypothyroidism Oncologic (Cancer) History: Reports: Breast - Infectious Disease History Infectious Disease History: Reports: Chicken Pox - Past Surgical History HEENT Surgical History: Reports: Tonsillectomy GI Surgical History: Reports: Cholecystectomy Female Surgical History: Reports: Breast Reconstruction, Hysterectomy, Oophorectomy Oncologic Surgical History: Reports: Mastectomy Social & Family History - Family History Family Medical History: Noncontributory - Tobacco Use Smoking Status *Q: Current Every Day Smoker Years of Tobacco use: 20 Packs/Tins Daily: 1.0 - Caffeine Use Caffeine Use: Reports: Coffee, Soda, Tea - Alcohol Use Days Per Week of Alcohol Use: 1 Number of Drinks Per Day: 1 Total Drinks Per Week: 1 - Recreational Drug Use Recreational Drug Use: No Review of Systems - Review of Systems Review Of Systems: See Below Constitutional: Reports: No Symptoms Musculoskeletal: Reports: Other (mallet finger persists with inability to extend at DIP jt. ) Skin: Reports: Other (suture still in place from her last vist. No active bleeding. ) Neurological: Reports: No Symptoms ED EXAM, GENERAL - Physical Exam Exam: See Below Exam Limited By: Uncooperative General Appearance: Alert, WD/WN, No Apparent Distress Extremities: Limited Range of Motion (unable to extend at DIP joint. No bleeding. Suture remain intact. ). No: Non-Tender, Increased Warmth Neurological: Alert, Oriented, CN II-XII Intact, Normal Cognition, No Motor/ Sensory Deficits Skin Exam: Warm, Dry, No Rash, Wound/Incision (healing appropriately from her prior wound.). No: Increased Warmth, Lymphangitis Course - Vital Signs Last Recorded V/S: Last Vital Signs Temp 35.6 C 04/04/19 11:26 Pulse 70 04/04/19 11:26 Resp 16 04/04/19 11:26 BP 124/71 04/04/19 11:26 Pulse Ox 97 04/04/19 11:26 - Orders/Labs/Meds Orders: Active Orders 24 hr Category Date Time Status Bacitracin [Bacitracin Oint 1 GM] Med 04/04/19 11:41 Once 1 dose TOP ONETIME ONE Medication Orders Bacitracin (Bacitracin Oint 1 Gm) 1 dose TOP ONETIME ONE Stop: 04/04/19 11:42 Meds: Medications Generic Name Dose Route Start Last Admin Trade Name Freq PRN Reason Stop Dose Admin Bacitracin 1 dose 04/04/19 11:41 Bacitracin Oint 1 Gm TOP 04/04/19 11:42 ONETIME ONE Discontinued Medications Generic Name Dose Route Start Last Admin Trade Name Freq PRN Reason Stop Dose Admin Oxycodone HCl 5 mg 04/04/19 11:40 Oxycodone PO 04/04/19 11:41 ONETIME ONE Departure - Departure Time of Disposition: 12:00 Disposition: Home, Self-Care 01 Condition: Good Clinical Impression: Encounter for wound re-check - Discharge Information Referrals: Lopez Martin MD [Primary Care Provider] - Additional Instructions: Keep your appt with orthopedics for later today. Keep finger elevated to reduce pain/swelling. - My Orders Last 24 Hours: My Active Orders 04/04/19 11:41 Bacitracin [Bacitracin Oint 1 GM] 1 dose TOP ONETIME ONE - Assessment/Plan Last 24 Hours: My Active Orders 04/04/19 11:41 Bacitracin [Bacitracin Oint 1 GM] 1 dose TOP ONETIME ONE
== END 2019-04-04 12:04 | disposition home or self-care (01) ==
LOC: JP.ED 11:07
DX: M79.645 Pain in left finger(s) (principal); K21.9 Gastro-esophageal reflux disease without esophagitis; F41.9 Anxiety disorder, unspecified; F31.9 Bipolar disorder, unspecified; F17.210 Nicotine dependence, cigarettes, uncomplicated; Z88.5 Allergy status to narcotic agent; Z91.09 Other allergy status, other than to drugs and biological substances; Z88.8 Allergy status to other drugs, medicaments and biological substances; Z79.899 Other long term (current) drug therapy
CPT/HCPCS: 99282; A9270

== ENCOUNTER → 2019-04-08 | Day surgery (SDC) | payer MEDICAID ==
[~2019-04-08] MED LIST: Acetaminophen/oxyCODONE 325-5 MG Tab PO PRN; Bupivacaine 0.5% 50 ML MDV ONE; HYDROmorphone 1 MG/ML Syringe IVPUSH ONE; Lactated Ringers 1,000 ML IV SCH; Lidocaine 0.5% 50 ML SDV ONE; Lidocaine 1% with EPINEPHrine 1:100,000 50 ML MDV ONE; Midazolam 1 MG/ML 2 ML SDV ONE; Propofol 200 MG/20 ML SDV ONE; ceFAZolin 1 GM in Premix Bag 1 BAG IV ONE; fentaNYL 100 MCG/2 ML SDV IVPUSH ONE; fentaNYL 100 MCG/2 ML SDV ONE
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
== END ==
LOC: JP.SDS 11:29
PROVIDERS: ATTEND Specialist
DX: S62.633A Displaced fracture of distal phalanx of left middle finger, initial encounter for closed fracture (principal); M20.012 Mallet finger of left finger(s); S63.633A Sprain of interphalangeal joint of left middle finger, initial encounter; S62.635A Displaced fracture of distal phalanx of left ring finger, initial encounter for closed fracture; E03.9 Hypothyroidism, unspecified; K21.9 Gastro-esophageal reflux disease without esophagitis; F17.200 Nicotine dependence, unspecified, uncomplicated; F41.9 Anxiety disorder, unspecified; F31.9 Bipolar disorder, unspecified; W23.0XXA Caught, crushed, jammed, or pinched between moving objects, initial encounter; Z88.5 Allergy status to narcotic agent; Z88.4 Allergy status to anesthetic agent; Z88.8 Allergy status to other drugs, medicaments and biological substances; Z91.040 Latex allergy status; Z91.048 Other nonmedicinal substance allergy status; Z79.899 Other long term (current) drug therapy
CPT/HCPCS: 26433; 36415; 80048; 85027; A9270; J0690; J1170; J2250; J2704; J3010; J7120; J2001; J3490

== ENCOUNTER 2019-04-22 07:22 | Day surgery (SDC) | payer MEDICAID ==
[~2019-04-22 07:22] MED LIST changes: +Acetaminophen 500 MG Tab PO ONE; -Acetaminophen/oxyCODONE 325-5 MG Tab PO PRN; +Bacitracin Oint 1 GM U/D Packet ONE; -HYDROmorphone 1 MG/ML Syringe IVPUSH ONE; -Lactated Ringers 1,000 ML IV SCH; -Lidocaine 0.5% 50 ML SDV ONE; -Lidocaine 1% with EPINEPHrine 1:100,000 50 ML MDV ONE; +Nozin Nasal Sanitizer NASBOTH ONE; -ceFAZolin 1 GM in Premix Bag 1 BAG IV ONE; -fentaNYL 100 MCG/2 ML SDV IVPUSH ONE
[2019-04-22] MEDS ORDERED: Lactated Ringers 1,000 ML IV SCH (07:45)
[2019-04-22] MEDS ORDERED: ceFAZolin 1 GM in Premix Bag 1 BAG IV ONE (07:45)
[2019-04-22] MEDS ORDERED: Lidocaine 0.5% 50 ML SDV ONE (09:25)
[2019-04-22] MEDS ORDERED: Midazolam 1 MG/ML 2 ML SDV ONE (09:25)
[2019-04-22] MEDS ORDERED: Ondansetron 4 MG/2 ML SDV ONE (09:34)
[2019-04-22] MEDS ORDERED: Propofol 200 MG/20 ML SDV ONE (09:54)
[2019-04-22] MEDS ORDERED: HYDROmorphone 2 MG Tab PO ONE (11:00)
--- NOTE | 2019-05-01 18:52 | OR ---
DATE OF PROCEDURE: 04/22/2019 PREOPERATIVE DIAGNOSIS: Traumatic swan-neck deformity, left 3rd finger. POSTOPERATIVE DIAGNOSIS: Traumatic swan-neck deformity, left 3rd finger. PROCEDURE: Release of sagittal bands, left 3rd finger. ANESTHESIA: [place] block. INDICATIONS: Graciela is a 43-year-old female who sustained an injury to her left hand resulting in a crush injury of the 3rd and 4th fingers. 3rd finger injury resulted in a mallet finger along with a secondary swan-neck deformity. She had previously undergone repair of the extensor tendon and pinning of the DIP joint. It shows persistence swan-neck deformity, however. It appeared to initially correct with the repair of the distal extensor tendon, however, she shows a fairly significant swan-neck deformity, which she is unable to actively correct without manipulating her PIP joint. She now presents for release of the sagittal bands and flexion splinting. Risks, benefits, potential complications of procedure were discussed. DESCRIPTION OF PROCEDURE: After adequate anesthesia was obtained, left hand was then prepped and draped in a sterile fashion. Previously placed pin across the DIP joint was left and incorporated into the prep. Incision was made over the dorsal aspect of the 3rd finger starting just slightly distal to the PIP joint and carried proximally. Carried down to the subcutaneous tissues. The extensor gonzalez was identified. There was no evidence of rupture of the gonzalez. Sagittal bands were exposed and identified on each side. A 15 blade was then used to release the sagittal bands from the central slip allowing them to fall palmar to the center of rotation of the PIP joint. Release was extended for a distance of approximately a centimeter to a centimeter and a half on each side. Wound was then irrigated. Skin was closed with 3-0 nylon in interrupted fashion. Digital block was performed with 0.5% Marcaine. The finger was then dressed with Xeroform gauze and sterile gauze along with 1-inch Christophe. The finger was then splinted in a flexed position at the PIP joint and kept extended at the DIP joint with the pin. The patient tolerated procedure well. There were no complications, taken from the operating room in stable condition. Kevin Castro MD /[id number]
== END 2019-04-22 11:34 | disposition home or self-care (01) ==
LOC: JP.SDS 07:22
PROVIDERS: ATTEND Specialist
DX: M20.032 Swan-neck deformity of left finger(s) (principal); F17.200 Nicotine dependence, unspecified, uncomplicated; F41.9 Anxiety disorder, unspecified
CPT/HCPCS: 26437; A9270; J0690; J2001; J2250; J2405; J2704; J3010; J3490; J7120

== ENCOUNTER 2019-05-01 09:54 | Emergency (ER) | payer MEDICAID ==
[2019-05-01] MEDS ORDERED: LORazepam 2 MG/ML SDV IVPUSH ONE (10:00)
[2019-05-01] MEDS ORDERED: Lactated Ringers 1,000 ML IV SCH (10:00)
[2019-05-01] MEDS ORDERED: Sodium Chloride 0.9% 10 ML Syringe FLUSH PRN (10:00)
[2019-05-01] MEDS ORDERED: fentaNYL 100 MCG/2 ML SDV IVPUSH ONE ×2 (10:00→10:47)
[2019-05-01] MEDS ORDERED: Lidocaine 1% with EPINEPHrine 1:100,000 50 ML MDV SUBCUT STA (10:03)
[2019-05-01] MEDS ORDERED: Bacitracin Oint 1 GM U/D Packet TOP ONE (10:03)
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
[2019-05-01] MEDS ORDERED: Ketamine 500 MG/5 ML MDV IV ONE (10:47)
[2019-05-01] MEDS ORDERED: Sodium Chloride 0.9% 1,000 ML IV SCH (11:15)
[2019-05-01] MEDS ORDERED: HYDROmorphone 1 MG/ML Syringe IVPUSH ONE (11:34)
--- NOTE | 2019-05-01 11:42 | CRLCT ---
INDICATION: Trauma. TECHNIQUE: CT of the head without contrast. COMPARISON: None. FINDINGS: No acute intracranial hemorrhage or extra-axial collection. No evidence of acute cortical infarction. No mass effect or midline shift. Normal cerebral volume. The ventricles are normal in size, shape and contour. There is normal johnson and white matter differentiation. The orbital contents are normal. Scattered paranasal sinus mucosal thickening. Mastoid air cells are clear. No calvarial fractures. No lytic or sclerotic osseous lesions within the calvarium or skull base. Right suboccipital subcutaneous soft tissue swelling and mild hematoma measuring about 8 millimeters in maximal thickness IMPRESSION: 1. No acute intracranial abnormalities, including no evidence of acute intracranial hemorrhage. No calvarial fractures. 2. Mild right suboccipital subcutaneous soft tissue swelling and hematoma. Please note that all CT scans at this facility use dose modulation, iterative reconstruction, and/or weight-based dosing when appropriate to reduce radiation dose to as low as reasonably achievable. Dictated by Thiago Mantilla MD @ May 01 2019 11:34AM Signed by Dr. Thiago Mantilla @ May 01 2019 11:41AM
--- NOTE | 2019-05-01 11:44 | CRLCT ---
INDICATION: Trauma. TECHNIQUE: CT of the face without contrast. Coronal reconstructions were included. COMPARISON: None. FINDINGS: No acute fracture of the maxillofacial bones. No significant soft tissue injury. The orbital contents are normal in appearance. There is no evidence for penetrating injury to the ocular globes. The lenses are situated in their normally expected anterior locations. No radiodense or metallic foreign body is demonstrated. Diffuse mild to moderate paranasal sinus mucosal thickening. Mild leftward nasal septal bowing. The visualized portions of the brain are normal in appearance. IMPRESSION: 1. No acute fracture of the maxillofacial bones. Please note that all CT scans at this facility use dose modulation, iterative reconstruction, and/or weight-based dosing when appropriate to reduce radiation dose to as low as reasonably achievable. Dictated by Thiago Mantilla MD @ May 01 2019 11:41AM Signed by Dr. Thiago Mantilla @ May 01 2019 11:44AM
[2019-05-01] MEDS ORDERED: Ondansetron 4 MG/2 ML SDV IVPUSH ONE (11:45)
--- NOTE | 2019-05-01 11:57 | CRLCT ---
INDICATION: Trauma TECHNIQUE: CT cervical spine without contrast. COMPARISON: None FINDINGS: Vertebrae: Alignment is normal. There are no fractures or suspicious bony lesions. Discs and facet joints: Moderate degenerative disc spondylosis is at C4-5 and C5-6. The remainder of the disc spaces and facet joints are within normal limits. Extraspinal findings: Prevertebral soft tissues, visualized airway, and visualized lungs are unremarkable. IMPRESSION: Unremarkable cervical spine CT. No sign of acute injury. Dictated by Jose Mast MD @ 05/01/2019 11:55:18 AM Please note that all CT scans at this facility use dose modulation, iterative reconstruction, and/or weight-based dosing when appropriate to reduce radiation dose to as low as reasonably achievable. Dictated by: Jose Mast MD @ 05/01/2019 11:55:24 (Electronically Signed)
== END 2019-05-01 12:56 | disposition home or self-care (01) ==
LOC: JP.ED 09:54
DX: S01.81XA Laceration without foreign body of other part of head, initial encounter (principal); S13.4XXA Sprain of ligaments of cervical spine, initial encounter; K21.9 Gastro-esophageal reflux disease without esophagitis; F32.9 Major depressive disorder, single episode, unspecified; E03.9 Hypothyroidism, unspecified; F41.9 Anxiety disorder, unspecified; R40.2410 Glasgow coma scale score 13-15, unspecified time; Z88.5 Allergy status to narcotic agent; Z91.040 Latex allergy status; Z88.6 Allergy status to analgesic agent; Z88.8 Allergy status to other drugs, medicaments and biological substances; Z79.899 Other long term (current) drug therapy; V57.5XXA Driver of pick-up truck or van injured in collision with fixed or stationary object in traffic accident, initial encounter; Y92.410 Unspecified street and highway as the place of occurrence of the external cause
CPT/HCPCS: 12011; 36415; 70450; 70486; 72125; 80053; 85025; 96361; 96374; 96375; 96376; 99284; J1170; J2060; J2405; J3010; J7030

== ENCOUNTER 2019-05-17 06:15 | Day surgery (SDC) | payer MEDICAID ==
[2019-05-17] MEDS ORDERED: Bupivacaine 0.5% 50 ML MDV ONE (06:53)
[2019-05-17] MEDS ORDERED: Lactated Ringers 1,000 ML IV SCH (07:15)
[2019-05-17] MEDS ORDERED: Nozin Nasal Sanitizer NASBOTH ONE (07:15)
[2019-05-17] MEDS ORDERED: ceFAZolin 1 GM in Premix Bag 1 BAG IV ONE (07:15)
[2019-05-17] MEDS ORDERED: Propofol 200 MG/20 ML SDV ONE (07:38)
[2019-05-17] MEDS ORDERED: fentaNYL 100 MCG/2 ML SDV ONE (07:38)
[2019-05-17] MEDS ORDERED: Midazolam 1 MG/ML 2 ML SDV ONE (07:38)
[2019-05-17] MEDS ORDERED: Ondansetron 4 MG/2 ML SDV ONE (07:41)
[2019-05-17] MEDS ORDERED: Dexamethasone 4 MG/ML SDV ONE (07:41)
[2019-05-17] MEDS ORDERED: fentaNYL 100 MCG/2 ML SDV IVPUSH ONE (08:12)
[2019-05-17] MEDS ORDERED: HYDROmorphone 1 MG/ML Syringe IVPUSH ONE (08:31)
--- NOTE | 2019-05-17 13:24 | OR ---
DATE OF PROCEDURE: 05/17/2019 PREOPERATIVE DIAGNOSIS: Subacute mallet finger, left third finger. POSTOPERATIVE DIAGNOSIS: Subacute mallet finger, left third finger. PROCEDURE: Percutaneous pinning, DIP joint, left third finger. ANESTHESIA: Digital block with sedation. INDICATIONS: Graciela is a 43-year-old female who sustained a crush injury to her left third and fourth fingers. This resulted in a tuft fracture and laceration over extensor tendon. She underwent repair and pinning of the DIP joint approximately a month ago. The pin was inadvertently pulled the other day, and she noticed recurrence of the mallet deformity. 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 Splint has caused some pressure irritation over the DIP joint, and there was a question of a possible infection. Due to the swelling and sensitivity at the area, she is not tolerating splinting, and she has returned to the operating room for placement of percutaneous pin for extension of the DIP joint. PROCEDURE IN DETAIL: The patient was taken to the operating room and after sedation, digital block was performed with 0.5% Marcaine. The hand was then prepped and draped in a sterile fashion. 15 blade was utilized to make a small maria c in the previous incision to confirm that there was no abscess or joint infection. No purulent material, cloudy fluid, or other indication of infection was present. The finger was then extended and a 0.045 K- wire was advanced through the tip of the finger and across the IP joint with the finger in extension. Position was confirmed on AP and lateral images. Pin was then cut just slightly below skin level to prevent inadvertent catching again. Sterile dressing was then applied. The patient tolerated the procedure well. There were no complications. She was taken from the operating room in a stable condition. She will start occupational therapy for range of motion, flexion, swelling of the PIP joint for the swan-neck deformity. Follow up in 1 week. Kevin Castro MD /[id number]
== END 2019-05-17 09:40 | disposition home or self-care (01) ==
LOC: JP.SDS 06:15
PROVIDERS: ATTEND Specialist
DX: M20.012 Mallet finger of left finger(s) (principal); M20.032 Swan-neck deformity of left finger(s); K21.9 Gastro-esophageal reflux disease without esophagitis; E03.9 Hypothyroidism, unspecified; F31.9 Bipolar disorder, unspecified; F41.9 Anxiety disorder, unspecified
CPT/HCPCS: 26432; 76000; A9270; J0690; J1100; J1170; J2250; J2405; J2704; J3010; J3490; J7120

== ENCOUNTER 2019-06-07 07:36 | Day surgery (SDC) | payer MEDICAID ==
[2019-06-07] MEDS ORDERED: Propofol 200 MG/20 ML SDV ONE ×2 (08:42→09:27)
[2019-06-07] MEDS ORDERED: fentaNYL 100 MCG/2 ML SDV ONE (08:42)
[2019-06-07] MEDS ORDERED: Midazolam 1 MG/ML 2 ML SDV ONE (08:42)
[2019-06-07] MEDS ORDERED: Sodium Chloride 0.9% 1,000 ML IV SCH (09:00)
[2019-06-07] MEDS ORDERED: ceFAZolin 2 GM in Premix Bag 1 BAG IV ONE (09:00)
--- NOTE | 2019-06-07 13:59 | OR ---
DATE OF PROCEDURE: 06/07/2019 SURGEON: Hermes Amaya MD PROCEDURE: Colonoscopy. FINDINGS: Small polyp in cecum, completely removed using snare. COMPLICATIONS: None. RECRUITING INTERNSHIP: None. PREOPERATIVE DIAGNOSIS: Gastrointestinal bleeding. POSTOPERATIVE DIAGNOSIS: Gastrointestinal bleeding. RISKS: Risks, benefits, alternatives, and limitations including, but not limited to infection, bleeding, and perforation were explained to the patient and wished to proceed. PROCEDURE IN DETAIL: The patient was placed in left lateral decubitus position. Digital rectal exam was performed without abnormality. Scope was introduced and advanced atraumatically to the ileocecal valve. Scope was brought back through the ascending, transverse, descending colon, and retroflexed. The aforementioned polyp in the cecum was identified and completely removed using snare. The patient had no old or new blood. No colitis. No other abnormalities. The patient tolerated the procedure well. Etiology of the bleeding is unknown, however, the patient is not currently bleeding and it could be attributed to hemorrhoidal irritation. Of note, the prep was moderately acceptable, approximately 90% of the luminal surface could be seen. Suction irrigation techniques were used to maximize mucosal visualization. Hermes Amaya MD /[id number]
== END 2019-06-07 10:55 | disposition home or self-care (01) ==
LOC: JP.SDS 07:36
PROVIDERS: ATTEND Surgery
DX: K92.1 Melena (principal); D12.0 Benign neoplasm of cecum; K64.9 Unspecified hemorrhoids; E03.9 Hypothyroidism, unspecified; J44.9 Chronic obstructive pulmonary disease, unspecified; F17.210 Nicotine dependence, cigarettes, uncomplicated; F31.9 Bipolar disorder, unspecified; F43.10 Post-traumatic stress disorder, unspecified
CPT/HCPCS: 45385; 88305; J0690; J2250; J2704; J3010; J7030

== ENCOUNTER 2019-06-13 17:06 | Emergency (ER) | payer MEDICAID ==
[2019-06-13] MEDS ORDERED: HYDROmorphone 1 MG/ML Syringe IM ONE (18:35)
[2019-06-13] MEDS ORDERED: ceFAZolin 1 GM Vial IM ONE (19:41)
--- NOTE | 2019-06-13 19:50 | EDM.PDOC ---
ED HPI GENERAL MEDICAL PROBLEM - General Chief Complaint: Wound Recheck Stated Complaint: LEFT 3RD FINGER SURGERY PAIN Time Seen by Provider: 06/13/19 18:15 Source of Information: Reports: Patient History Limitations: Reports: No Limitations - History of Present Illness INITIAL COMMENTS - FREE TEXT/NARRATIVE: This lady had a severe laceration to her left index finger about 2 months ago. She said it was almost severed. Dr. Cota repaired surgically and placed a pin in it. About 3 weeks ago the pen get checked out to Dr. Ramirez reinserted. Today she bumped the end of her finger and sort of jammed the pen and it suddenly has turned red. Has a lot of pain also. Left Finger-Middle Pain Score (Numeric/FACES): 6 - Related Data Allergies Allergy/AdvReac Type Severity Reaction Status Date / Time adhesive tape Allergy Other Verified 06/13/19 17:22 codeine Allergy Hives Verified 06/13/19 17:22 cortisone Allergy Hives Verified 06/13/19 17:22 gabapentin Allergy Rash Verified 06/13/19 17:22 ketorolac [From Toradol] Allergy Rash Verified 06/13/19 17:22 latex Allergy Rash Verified 06/13/19 17:22 lidocaine Allergy Swelling Verified 06/13/19 17:22 lorazepam [From Ativan] AdvReac Stomach Verified 06/13/19 17:22 Upset meperidine [From Demerol] AdvReac Nausea Verified 06/13/19 17:22 metoclopramide [From Reglan] AdvReac Nausea Verified 06/13/19 17:22 morphine AdvReac Nausea Verified 06/13/19 17:22 venlafaxine [From Effexor] AdvReac Diarrhea Verified 06/13/19 17:22 Home Meds: Home Meds Omeprazole 40 mg PO DAILY 11/22/18 [History] Levothyroxine 125 mcg PO DAILY #30 tablet 12/26/18 [Rx] Ibuprofen 800 mg PO Q8H PRN 06/05/19 [History] Nicotine [Nicoderm CQ] 14 mg TD DAILY 06/05/19 [History] Diazepam [Valium] 10 mg PO BID 06/07/19 [History] lamoTRIgine [Lamictal] 50 mg PO DAILY 06/07/19 [History] Past Medical History - Past Health History Medical/Surgical History: Denies Medical/Surgical History HEENT History: Reports: Impaired Vision Cardiovascular History: Reports: None Respiratory History: Reports: None Gastrointestinal History: Reports: GERD Genitourinary History: Reports: None 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 s/p L 3rd finger pinning 04/08/19. Revision 05/17/19 Neurological History: Reports: Concussion Psychiatric History: Reports: Anxiety, Bipolar, Depression, Psych Hospitalization(s) Endocrine/Metabolic History: Reports: Hypothyroidism Hematologic History: Reports: None Immunologic History: Reports: None Oncologic (Cancer) History: Reports: Breast Dermatologic History: Reports: None - Infectious Disease History Infectious Disease History: Reports: Chicken Pox - Past Surgical History GI Surgical History: Reports: Cholecystectomy Female Surgical History: Reports: Breast Reconstruction, Hysterectomy, Oophorectomy Other Musculoskeletal Surgeries/Procedures:: LEFT MIDDLE FINGER SURGERY x3 Oncologic Surgical History: Reports: Mastectomy Social & Family History - Family History Family Medical History: Noncontributory - Tobacco Use Smoking Status *Q: Current Some Day Smoker Years of Tobacco use: 20 Packs/Tins Daily: 0.2 Used Tobacco, but Quit: No Second Hand Smoke Exposure: Yes - Caffeine Use Caffeine Use: Reports: Coffee, Energy Drinks, Soda, Tea - Alcohol Use Days Per Week of Alcohol Use: 0 - Recreational Drug Use Recreational Drug Use: No ED ROS GENERAL - Review of Systems Review Of Systems: ROS reveals no pertinent complaints other than HPI. ED EXAM, SKIN/RASH Exam: See Below Exam Limited By: No Limitations General Appearance: Alert, WD/WN, Mild Distress Extremities: Other (The left middle finger he does have a pin in the fingertips just a tiny little bit of it protruding there is moderate swelling to the dorsum of the finger around the DIP joint area there is erythema and it suggests that there is an infection whether soft tissue or intra-articular I can 't tell.) Course - Vital Signs Last Recorded V/S: Last Vital Signs Temp 36.3 C 06/13/19 17:28 Pulse 77 06/13/19 17:28 Resp 16 06/13/19 17:28 BP 130/80 06/13/19 17:28 Pulse Ox 100 06/13/19 17:28 - Orders/Labs/Meds Orders: Active Orders 24 hr Category Date Time Status Fingers Third Digit Lt F2 [CR] Stat Exams 06/13/19 18:35 Taken ceFAZolin [Ancef] Med 06/13/19 19:41 Once 2 gm IM ONETIME ONE Medication Orders Cefazolin Sodium (Ancef) 2 gm IM ONETIME ONE Stop: 06/13/19 19:42 Meds: Medications Generic Name Dose Route Start Last Admin Trade Name Freq PRN Reason Stop Dose Admin Cefazolin Sodium 2 gm 06/13/19 19:41 Ancef IM 06/13/19 19:42 ONETIME ONE Discontinued Medications Generic Name Dose Route Start Last Admin Trade Name Freq PRN Reason Stop Dose Admin Hydromorphone HCl 1 mg 06/13/19 18:35 06/13/19 18:47 Dilaudid IM 06/13/19 18:36 1 mg ONETIME ONE Administration - Radiology Interpretation Free Text/Narrative:: X-ray of the left middle finger shows a pin in place nothing other unusual about it - Re-Assessments/Exams Free Text/Narrative Re-Assessment/Exam: 06/13/19 19:45 The patient received an injection of Dilaudid 1 mg IM gave some relief. I spoke with Cristina and orthopedics in [place]. She recommended Ancef 2 g intramuscular and then follow-up in clinic tomorrow morning. Dr. Hoffman will be here in [place]. She recommended cephalexin 500 mg 4 times a day but this lady is on restrictions and so cannot fill the prescription tonight. We'll leave her to do that in clinic tomorrow. She'll have to use ibuprofen for pain Departure - Departure Time of Disposition: 19:47 Disposition: Home, Self-Care 01 Condition: Fair Clinical Impression: Infection due to orthopedic device - Discharge Information Referrals: Efraín Beasley [facility] APPRENTICE [Primary Care Provider] - Additional Instructions: Follow-up in orthopedic clinic here in the [place] tomorrow morning. You will be given a call in the morning to arrange this. - My Orders Last 24 Hours: My Active Orders 06/13/19 18:35 Fingers Third Digit Lt F2 [CR] Stat 06/13/19 19:41 ceFAZolin [Ancef] 2 gm IM ONETIME ONE - Assessment/Plan Last 24 Hours: My Active Orders 06/13/19 18:35 Fingers Third Digit Lt F2 [CR] Stat 06/13/19 19:41 ceFAZolin [Ancef] 2 gm IM ONETIME ONE
--- NOTE | 2019-06-13 19:52 | CRLCR ---
Indication: Pain, swelling, trouble with sandoval Technique: Four views of the left 3rd digit Comparison: Three views left 3rd digit from 04/03/2019 Findings: A pin is in place, traversing the distal phalanx and the mid to distal aspect of the middle phalanx. There are no erosive or destructive changes of the surrounding bone. There is soft tissue edema left the entire 3rd digit. Impression: Soft tissue edema of the entire 3rd digit. Correlate for cellulitis. No erosive or destructive changes of the phalanges. Dictated by Dede Corral MD @ Jun 13 2019 7:44PM Signed by Dr. Dede Corral @ Jun 13 2019 7:50PM
[2019-06-13] MEDS ORDERED: ceFAZolin 1 GM Vial ONE (20:11)
== END 2019-06-13 20:18 | disposition home or self-care (01) ==
LOC: JP.ED 17:06
DX: T84.69XA Infection and inflammatory reaction due to internal fixation device of other site, initial encounter (principal); K21.9 Gastro-esophageal reflux disease without esophagitis; E03.9 Hypothyroidism, unspecified; F17.210 Nicotine dependence, cigarettes, uncomplicated; Z88.5 Allergy status to narcotic agent; Z91.040 Latex allergy status; Z88.8 Allergy status to other drugs, medicaments and biological substances; Z88.1 Allergy status to other antibiotic agents; Z79.899 Other long term (current) drug therapy; Z90.710 Acquired absence of both cervix and uterus; Z90.49 Acquired absence of other specified parts of digestive tract; Z90.721 Acquired absence of ovaries, unilateral
CPT/HCPCS: 73140; 96372; 99284; J0690; J1170

== ENCOUNTER 2019-06-17 11:39 | Day surgery (SDC) | payer MEDICAID ==
[2019-06-17] MEDS ORDERED: Bacitracin Oint 1 GM U/D Packet ONE (11:45)
[2019-06-17] MEDS ORDERED: Bupivacaine 0.5% 50 ML MDV ONE (11:46)
[2019-06-17] MEDS ORDERED: Povidone-Iodine 10% Soln 118.25 ML Bottle ONE (11:46)
[2019-06-17] MEDS ORDERED: Lactated Ringers 1,000 ML IV SCH (12:00)
[2019-06-17] MEDS ORDERED: Midazolam 1 MG/ML 2 ML SDV ONE ×2 (12:03→12:12)
[2019-06-17] MEDS ORDERED: fentaNYL 100 MCG/2 ML SDV ONE (12:03)
[2019-06-17] MEDS ORDERED: Propofol 200 MG/20 ML SDV ONE (12:03)
[2019-06-17] MEDS ORDERED: Ondansetron 4 MG/2 ML SDV ONE (12:31)
[2019-06-17] MEDS ORDERED: HYDROmorphone 1 MG/ML Syringe IVPUSH ONE (13:01)
--- NOTE | 2019-06-26 22:18 | OR ---
DATE OF PROCEDURE: 06/17/2019 PREOPERATIVE DIAGNOSIS: Cellulitis, left middle finger, possible infected distal interphalangeal joint. POSTOPERATIVE DIAGNOSIS: Cellulitis, left middle finger abscess surrounding previously placed suture knot over distal interphalangeal of left middle finger. PROCEDURE: Incision and drainage, foreign body stitch abscess, left middle finger. ANESTHESIA: Conscious sedation with digital block. INDICATIONS: Graciela is a 43-year-old female who has been having difficulty with persistent and increasing pain in her left middle finger. She had originally sustained a crush injury with laceration of the extensor tendon. She underwent repair of this and pinning of the DIP joint in extension. The pin was inadvertently removed early resulting in recurrence of the mallet deformity. Due to extreme sensitivity of the fingertip from the crush injury, she was unable to tolerate an extension splint and she was returned to the operating room for replacement of the percutaneous pin across the DIP joint. The pin was buried, flushed with the skin with plan to leave this for a minimum of 6 weeks. However, pin began to work loose and she presented to the emergency room with increasing redness and swelling of the finger. She was started on IV antibiotics. She was in for infusion of the antibiotics today, and the finger was inspected revealing a warm red swollen finger around the DIP with possible abscess. She is, therefore, taken for incision and drainage. DESCRIPTION OF PROCEDURE: After adequate conscious sedation was obtained, the base of the finger was prepped with alcohol and a digital block was performed using 0.5% Marcaine without epinephrine. Left hand was then prepped and draped in a sterile fashion. There was no evidence of drainage from the pin site. The pin had been previously removed. A small portion of the previous dorsal incision over the DIP was incised with a 15 blade. This was carried down to the level of the extensor tendon repair. A small amount of fluid was present around the knot of the nylon suture which had been used for the repair of the extensor tendon. This was drained and a portion of the knot was cut and removed. There was no evidence of purulent material extending along the extensor tendon or into the DIP joint. Wound was irrigated once again. The skin was then closed with 4-0 nylon in interrupted fashion. The finger was then dressed with Xeroform gauze, sterile Conform gauze, and a plaster splint was then formed around the finger with flexion of the PIP joint and extension of the DIP joint. This was allowed to harden into position and over wrapped with Conform and then wrapped again with Coban dressing. The patient tolerated procedure well. There were no complications. Taken from the operating room in stable condition. Kevin Castro MD /[id number]
== END 2019-06-17 13:51 | disposition home or self-care (01) ==
LOC: JP.SDS 11:39
PROVIDERS: ATTEND Specialist
DX: L02.512 Cutaneous abscess of left hand (principal); L03.012 Cellulitis of left finger; T84.498A Other mechanical complication of other internal orthopedic devices, implants and grafts, initial encounter; J45.909 Unspecified asthma, uncomplicated; K21.9 Gastro-esophageal reflux disease without esophagitis; F17.200 Nicotine dependence, unspecified, uncomplicated; F31.9 Bipolar disorder, unspecified; F43.10 Post-traumatic stress disorder, unspecified
CPT/HCPCS: 26010; J1170; J2250; J2405; J2704; J3010; J3490; J7120

== ENCOUNTER 2019-07-21 07:35 | Emergency (ER) | payer MEDICAID ==
--- NOTE | 2019-07-21 07:50 | EDM.PDOC ---
ED HPI GENERAL MEDICAL PROBLEM - General Chief Complaint: Respiratory Problem Stated Complaint: COUGH CHEST IS SORE FROM COUGHING Time Seen by Provider: 07/21/19 07:50 Source of Information: Reports: Patient History Limitations: Reports: No Limitations - History of Present Illness INITIAL COMMENTS - FREE TEXT/NARRATIVE: pt returns with persistent coughing and severe neck pain. She has had a fever Onset: Gradual, Other (last few days. ) Duration: Hour(s): Location: Reports: Chest Neck Pain Score (Numeric/FACES): 5 - Related Data Allergies Allergy/AdvReac Type Severity Reaction Status Date / Time adhesive tape Allergy Other Verified 07/21/19 07:46 codeine Allergy Hives Verified 07/21/19 07:46 cortisone Allergy Hives Verified 07/21/19 07:46 gabapentin Allergy Rash Verified 07/21/19 07:46 ketorolac [From Toradol] Allergy Rash Verified 07/21/19 07:46 latex Allergy Rash Verified 07/21/19 07:46 lidocaine Allergy Swelling Verified 07/21/19 07:46 lorazepam [From Ativan] AdvReac Stomach Verified 07/21/19 07:46 Upset meperidine [From Demerol] AdvReac Nausea Verified 07/21/19 07:46 metoclopramide [From Reglan] AdvReac Nausea Verified 07/21/19 07:46 morphine AdvReac Nausea Verified 07/21/19 07:46 venlafaxine [From Effexor] AdvReac Diarrhea Verified 07/21/19 07:46 Home Meds: Home Meds Omeprazole 40 mg PO DAILY 11/22/18 [History] Levothyroxine 125 mcg PO DAILY #30 tablet 12/26/18 [Rx] Ibuprofen 800 mg PO Q8H PRN 06/05/19 [History] Nicotine [Nicoderm CQ] 21 mg TD DAILY 06/05/19 [History] Diazepam [Valium] 10 mg PO BID 06/07/19 [History] lamoTRIgine [Lamictal] 50 mg PO DAILY 06/07/19 [History] Azithromycin [Zithromax] 1 gm PO DAILY 07/19/19 [History] predniSONE [Prednisone] 40 mg PO DAILY 07/19/19 [History] Albuterol [Ventolin HFA] 1 puff IH Q4HR PRN 07/21/19 [History] Past Medical History - Past Health History Medical/Surgical History: Denies Medical/Surgical History HEENT History: Reports: Impaired Vision Cardiovascular History: Reports: None Respiratory History: Reports: None Gastrointestinal History: Reports: Cholelithiasis, GERD Genitourinary History: Reports: None PONDMAN History: Reports: Polycystic Ovaries, Musculoskeletal History: Reports: Fracture Other Musculoskeletal History: left middle finger fracture with laceration . s/p L 3rd finger pinning 04/08/19. Revision 05/17/19. Revision 06/17/19 Neurological History: Reports: Concussion Psychiatric History: Reports: Anxiety, Bipolar, Depression, Psych Hospitalization(s) Endocrine/Metabolic History: Reports: Hypothyroidism Hematologic History: Reports: None Immunologic History: Reports: None Oncologic (Cancer) History: Reports: Breast Dermatologic History: Reports: None - Infectious Disease History Infectious Disease History: Reports: Chicken Pox - Past Surgical History HEENT Surgical History: Reports: None GI Surgical History: Reports: Cholecystectomy Female Surgical History: Reports: Breast Reconstruction, Section, Hysterectomy, Oophorectomy Endocrine Surgical History: Reports: None Neurological Surgical History: Reports: None Other Musculoskeletal Surgeries/Procedures:: LEFT MIDDLE FINGER SURGERY x3 Oncologic Surgical History: Reports: Mastectomy Social & Family History - Family History Family Medical History: Noncontributory - Caffeine Use Caffeine Use: Reports: Coffee, Soda, Tea ED ROS GENERAL - Review of Systems Review Of Systems: See Below Constitutional: Reports: Chills, Other (increased neck pain from the coughing. ) HEENT: Reports: No Symptoms Respiratory: Reports: Shortness of Breath, Cough Cardiovascular: Reports: No Symptoms Endocrine: Reports: No Symptoms GI/Abdominal: Reports: No Symptoms : Reports: No Symptoms Musculoskeletal: Reports: No Symptoms Skin: Reports: No Symptoms ED EXAM, GENERAL - Physical Exam Exam: See Below Free Text/Narrative:: pt has severe neck pain related to known disc disease. She has a upcoming visit with a neurosurgeon. . She states the coughing is making the neck pain alot worse. Exam Limited By: No Limitations General Appearance: Alert, Anxious, Moderate Distress Ears: Normal TMs Nose: Normal Inspection Throat/Mouth: Normal Inspection Head: Atraumatic Respiratory/Chest: Decreased Breath Sounds, Wheezing, Other (pt is not real tight. ) Cardiovascular: Regular Rate, Rhythm GI/Abdominal: Soft, Non-Tender (Female) Exam: Deferred Rectal (Female) Exam: Deferred Back Exam: Normal Inspection Extremities: Normal Inspection Neurological: Alert, Oriented, Normal Cognition Psychiatric: Normal Affect Course - Vital Signs Last Recorded V/S: Last Vital Signs Temp 36.2 C 07/21/19 07:53 Pulse 83 07/21/19 07:53 Resp 20 07/21/19 07:53 BP 121/85 07/21/19 07:53 Pulse Ox 99 07/21/19 07:53 - Orders/Labs/Meds Labs: Laboratory Tests 07/21/19 07/21/19 Range/Units 08:43 08:43 WBC 9.7 (4.5-11.0) K/uL RBC 4.86 (3.30-5.50) M/uL Hgb 14.8 (12.0-15.0) g/dL Hct 44.0 (36.0-48.0) % MCV 91 (80-98) fL MCH 31 (27-31) pg MCHC 34 (32-36) % Plt Count 285 (150-400) K/uL Neut % (Auto) 60 (36-66) % Lymph % (Auto) 29 (24-44) % [place] % (Auto) 8 H (2-6) % Eos % (Auto) 3 (2-4) % Baso % (Auto) 1 (0-1) % Sodium 139 L (140-148) mmol/L Potassium 3.8 (3.6-5.2) mmol/L Chloride 104 (100-108) mmol/L Carbon Dioxide 27 (21-32) mmol/L Anion Gap 11.8 (5.0-14.0) mmol/L BUN 16 (7-18) mg/dL Creatinine 1.0 (0.6-1.0) mg/dL Est Cr Clr Drug Dosing 64.60 mL/min Estimated GFR (MDRD) > 60 (>60) Glucose 85 (74-106) mg/dL Calcium 9.1 (8.5-10.1) mg/dL Total Bilirubin 0.8 (0.2-1.0) mg/dL AST 19 (15-37) U/L ALT 23 (12-78) U/L Alkaline Phosphatase 92 (46-116) U/L Total Protein 6.7 (6.4-8.2) g/dL Albumin 3.3 L (3.4-5.0) g/dL Globulin 3.4 (2.3-3.5) g/dL Albumin/Globulin Ratio 1.0 L (1.2-2.2) Meds: Medications Discontinued Medications Generic Name Dose Route Start Last Admin Trade Name Freq PRN Reason Stop Dose Admin Albuterol/Ipratropium 3 ml 07/21/19 08:35 07/21/19 08:42 Duoneb 3.0-0.5 Mg/3 Ml NEB 07/21/19 08:36 3 ml ONETIME ONE Administration Benzonatate 200 mg 07/21/19 08:37 07/21/19 08:41 Tessalon Perles PO 07/21/19 08:38 200 mg ONETIME ONE Administration Hydromorphone HCl 0.5 mg 07/21/19 08:36 07/21/19 08:42 Dilaudid IM 07/21/19 08:37 0.5 mg ONETIME ONE Administration - Re-Assessments/Exams Free Text/Narrative Re-Assessment/Exam: 07/21/19 09:14 pt had a chest xray that did not have a definite infiltrate. Her wbc is not elevated. Departure - Departure Time of Disposition: 09:15 Disposition: Home, Self-Care 01 Condition: Fair Clinical Impression: Bronchitis - Discharge Information Instructions: Upper Respiratory Infection, Adult, [id number] Referrals: PCP,None [Primary Care Provider] - Forms: ED Department Discharge Care Plan Goals: finish predisone, zithromax 4 more days will be given, robitussin ac 1-2 tsp q6h prn for cough. cool mist humidifier, cool pack or moist heat to the neck. keep appt in [place] with neurosurgery, norco 5/325 q6h prn for pain.#6
[2019-07-21] MEDS ORDERED: Albuterol/Ipratropium 3.0-0.5 MG/3 ML Neb Soln NEB ONE (08:35)
[2019-07-21] MEDS ORDERED: HYDROmorphone 0.5 MG/0.5 ML Syringe IM ONE (08:36)
[2019-07-21] MEDS ORDERED: Benzonatate 100 MG Cap PO ONE (08:37)
--- NOTE | 2019-07-21 09:35 | CRLCR ---
Indication: Shortness of breath. Cough. Technique: Two views of the chest were obtained. Comparison: None Findings: The heart is normal in size. The lungs are clear. No infiltrate, pleural effusion, or pneumothorax is identified. Impression: No acute cardiopulmonary process. Dictated by Angelique Dill MD @ Jul 21 2019 9:33AM Signed by Dr. Angelique Dill @ Jul 21 2019 9:34AM
== END 2019-07-21 09:35 | disposition home or self-care (01) ==
LOC: JP.ED 07:35
DX: J40 Bronchitis, not specified as acute or chronic (principal); F41.9 Anxiety disorder, unspecified; E03.9 Hypothyroidism, unspecified; F31.9 Bipolar disorder, unspecified; K21.9 Gastro-esophageal reflux disease without esophagitis; Z88.5 Allergy status to narcotic agent; Z91.040 Latex allergy status; Z79.899 Other long term (current) drug therapy; Z90.710 Acquired absence of both cervix and uterus; Z90.49 Acquired absence of other specified parts of digestive tract; Z91.048 Other nonmedicinal substance allergy status; Z90.722 Acquired absence of ovaries, bilateral
CPT/HCPCS: 36415; 71046; 80053; 85025; 94640; 96372; 99284; A9270; J1170; J7620-GY

== ENCOUNTER 2019-08-04 15:29 | Emergency (ER) | payer MEDICAID ==
--- NOTE | 2019-08-04 16:54 | EDM.PDOC ---
ED HPI GENERAL MEDICAL PROBLEM - General Chief Complaint: Gastrointestinal Problem Stated Complaint: Neck pain, anxiety Time Seen by Provider: 08/04/19 16:30 Source of Information: Reports: Patient History Limitations: Reports: No Limitations - History of Present Illness INITIAL COMMENTS - FREE TEXT/NARRATIVE: 43 yo with chronic neck pain who presents with concerns of anxiety and possibly neck injury She was moving out of her boyfriends residence today. She tripped in a doorway and slid to the ground striking her neck on the door frame. She is concerned she may have a neck injury. She has not new numbness or weakness in the extremities. She is also extremely anxious. Has history of anxiety, takes valium at home but did not take it today, she's not sure why. No headstrike. No LOC. Right Neck Pain Score (Numeric/FACES): 8 - Related Data Allergies Allergy/AdvReac Type Severity Reaction Status Date / Time adhesive tape Allergy Other Verified 08/04/19 15:53 codeine Allergy Hives Verified 08/04/19 15:53 cortisone Allergy Hives Verified 08/04/19 15:53 gabapentin Allergy Rash Verified 08/04/19 15:53 ketorolac [From Toradol] Allergy Rash Verified 08/04/19 15:53 latex Allergy Rash Verified 08/04/19 15:53 lidocaine Allergy Swelling Verified 08/04/19 15:53 lorazepam [From Ativan] AdvReac Stomach Verified 08/04/19 15:53 Upset meperidine [From Demerol] AdvReac Nausea Verified 08/04/19 15:53 metoclopramide [From Reglan] AdvReac Nausea Verified 08/04/19 15:53 morphine AdvReac Nausea Verified 08/04/19 15:53 venlafaxine [From Effexor] AdvReac Diarrhea Verified 08/04/19 15:53 Home Meds: Home Meds Omeprazole 40 mg PO DAILY 11/22/18 [History] Levothyroxine 125 mcg PO DAILY #30 tablet 12/26/18 [Rx] Ibuprofen 800 mg PO Q8H PRN 06/05/19 [History] Diazepam [Valium] 10 mg PO BID 06/07/19 [History] lamoTRIgine [Lamictal] 50 mg PO DAILY 06/07/19 [History] Albuterol [Ventolin HFA] 1 puff IH Q4HR PRN 07/21/19 [History] Past Medical History - Past Health History Medical/Surgical History: Denies Medical/Surgical History HEENT History: Reports: Impaired Vision Cardiovascular History: Reports: None Respiratory History: Reports: COPD Gastrointestinal History: Reports: Cholelithiasis, Colon Polyp, GERD Genitourinary History: Reports: None STRAIGHT[employer] GUN PARTS History: Reports: Polycystic Ovaries, Musculoskeletal History: Reports: Fracture Other Musculoskeletal History: left middle finger fracture with laceration . s/p L 3rd finger pinning 04/08/19. Revision 05/17/19. Revision 06/17/19 Neurological History: Reports: Concussion Psychiatric History: Reports: ADHD, Addiction, Anxiety, Bipolar, Depression, Psych Hospitalization(s), Suicide Attempt Endocrine/Metabolic History: Reports: Hypothyroidism Hematologic History: Reports: None Immunologic History: Reports: None Oncologic (Cancer) History: Reports: Breast Dermatologic History: Reports: None - Infectious Disease History Infectious Disease History: Reports: Chicken Pox - Past Surgical History Head Surgeries/Procedures: Reports: None HEENT Surgical History: Reports: None, Tonsillectomy Respiratory Surgical History: Reports: None GI Surgical History: Reports: Appendectomy, Cholecystectomy, Colonoscopy Female Surgical History: Reports: Breast Reconstruction, Section, Hysterectomy, Oophorectomy Endocrine Surgical History: Reports: None Neurological Surgical History: Reports: None Other Musculoskeletal Surgeries/Procedures:: LEFT MIDDLE FINGER SURGERY x3 Oncologic Surgical History: Reports: Mastectomy Other Oncologic Surgeries/Procedures: bilateral Social & Family History - Family History Family Medical History: Noncontributory - Tobacco Use Smoking Status *Q: Former Smoker Years of Tobacco use: 20 Packs/Tins Daily: 0.5 Used Tobacco, but Quit: No Second Hand Smoke Exposure: No - Caffeine Use Caffeine Use: Reports: Coffee, Energy Drinks, Soda, Tea - Recreational Drug Use Recreational Drug Use: No ED ROS GENERAL - Review of Systems Review Of Systems: See Below Constitutional: Reports: No Symptoms HEENT: Reports: Other (neck pain) Cardiovascular: Reports: No Symptoms Endocrine: Reports: No Symptoms GI/Abdominal: Reports: No Symptoms : Reports: No Symptoms Musculoskeletal: Reports: Neck Pain Skin: Reports: No Symptoms Neurological: Reports: No Symptoms Psychiatric: Reports: Anxiety Hematologic/Lymphatic: Reports: No Symptoms Immunologic: Reports: No Symptoms ED EXAM, GI/ABD - Physical Exam Exam: See Below Exam Limited By: No Limitations General Appearance: Alert, Other (tearful) Ears: Normal External Exam Nose: Normal Inspection Throat/Mouth: Normal Inspection Head: Atraumatic, Normocephalic Neck: Normal Inspection, Supple, Full Range of Motion, Tender Lateral (right lateral tenderness near base of occiput. ). No: Tender Midline Respiratory/Chest: No Respiratory Distress, Lungs Clear Cardiovascular: Regular Rate, Rhythm GI/Abdominal Exam: Soft, Non-Tender, No Distention Back Exam: Normal Inspection Extremities: Normal Inspection Neurological: Oriented, CN II-XII Intact, Normal Gait, No Motor/Sensory Deficits Psychiatric: Normal Affect, Normal Mood Skin Exam: Warm, Dry Course - Vital Signs Last Recorded V/S: Last Vital Signs Temp 35.1 C L 08/04/19 15:56 Pulse 71 08/04/19 15:56 Resp 16 08/04/19 15:56 BP 113/76 08/04/19 15:56 Pulse Ox 98 08/04/19 15:56 - Re-Assessments/Exams Free Text/Narrative Re-Assessment/Exam: 43 yo with hx of chronic neck pain, anxiety presents with concerns of acute on chronic neck pain and anxiety Low risk mechanism for acute neck injury, no need for imaging per nexus and [place] rules Offered to treat anxiety with valium, pain with apap + ibuprofen. Patient adamant that she requires diluadid for this. I explained I did not think this was in her best interest to treat her chronic pain with opioids She was quite disagreeable with this and promptly left the ED without further treatment. 08/04/19 17:13 Departure - Departure Time of Disposition: 17:00 Disposition: Eloped 07 Clinical Impression: Anxiety - Discharge Information Referrals: Efraín Beasley [employer]OSPECTING [Primary Care Provider] -
== END 2019-08-04 17:10 | disposition left against medical advice (07) ==
LOC: JP.ED 15:29
DX: F41.9 Anxiety disorder, unspecified (principal); J44.9 Chronic obstructive pulmonary disease, unspecified; K21.9 Gastro-esophageal reflux disease without esophagitis; E03.9 Hypothyroidism, unspecified; F31.9 Bipolar disorder, unspecified; Z87.891 Personal history of nicotine dependence; Z91.048 Other nonmedicinal substance allergy status; Z88.5 Allergy status to narcotic agent; Z88.8 Allergy status to other drugs, medicaments and biological substances; Z88.6 Allergy status to analgesic agent; Z91.040 Latex allergy status; Z88.4 Allergy status to anesthetic agent; Z79.899 Other long term (current) drug therapy; Z79.890 Hormone replacement therapy
CPT/HCPCS: 99282

== ENCOUNTER 2019-08-07 18:15 | Emergency (ER) | payer MEDICAID ==
[2019-08-07] MEDS ORDERED: LORazepam 2 MG/ML SDV IM ONE (22:15)
[2019-08-07] MEDS ORDERED: HYDROmorphone 1 MG/ML Syringe IM ONE (22:16)
--- NOTE | 2019-08-07 22:20 | EDM.PDOCBH ---
ED HPI GENERAL MEDICAL PROBLEM - General Chief Complaint: Behavioral/Psych Stated Complaint: EVAL Time Seen by Provider: 08/07/19 22:00 Source of Information: Reports: Patient History Limitations: Reports: No Limitations - History of Present Illness INITIAL COMMENTS - FREE TEXT/NARRATIVE: This lady is here because of major anxiety. She has some neck problems and whenever her neck problems flareup she gets extremely anxious. She had been prescribed diazepam 10 mg 3 times a day and says that she called Dr. Garvin earlier today and she said the doctor decided to increase her Valium to 20 mg 3 times a day but either she didn't get a prescription or it's too late to fill it turns out her diazepam has been out for the past 3 days so I rather doubt she 's telling me the truth about that. She's scheduled for some neck surgery in about a month. Neck Pain Score (Numeric/FACES): 8 - Related Data Allergies Allergy/AdvReac Type Severity Reaction Status Date / Time adhesive tape Allergy Other Verified 08/04/19 15:53 codeine Allergy Hives Verified 08/04/19 15:53 cortisone Allergy Hives Verified 08/04/19 15:53 gabapentin Allergy Rash Verified 08/04/19 15:53 ketorolac [From Toradol] Allergy Rash Verified 08/04/19 15:53 latex Allergy Rash Verified 08/04/19 15:53 lidocaine Allergy Swelling Verified 08/04/19 15:53 lorazepam [From Ativan] AdvReac Stomach Verified 08/04/19 15:53 Upset meperidine [From Demerol] AdvReac Nausea Verified 08/04/19 15:53 metoclopramide [From Reglan] AdvReac Nausea Verified 08/04/19 15:53 morphine AdvReac Nausea Verified 08/04/19 15:53 venlafaxine [From Effexor] AdvReac Diarrhea Verified 08/04/19 15:53 Home Meds: Home Meds Omeprazole 40 mg PO DAILY 11/22/18 [History] Levothyroxine 125 mcg PO DAILY #30 tablet 12/26/18 [Rx] Ibuprofen 800 mg PO Q8H PRN 06/05/19 [History] Diazepam [Valium] 10 mg PO BID 06/07/19 [History] lamoTRIgine [Lamictal] 50 mg PO DAILY 06/07/19 [History] Albuterol [Ventolin HFA] 1 puff IH Q4HR PRN 07/21/19 [History] Carisoprodol [Soma] 250 mg PO TID 08/07/19 [History] Past Medical History - Past Health History Medical/Surgical History: Denies Medical/Surgical History HEENT History: Reports: Impaired Vision Cardiovascular History: Reports: None Respiratory History: Reports: COPD Gastrointestinal History: Reports: Cholelithiasis, Colon Polyp, GERD Genitourinary History: Reports: None 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 s/p L 3rd finger pinning 04/08/19. Revision 05/17/19. Revision 06/17/19. Neurology states needs cervical fusion surgery Neurological History: Reports: Concussion Psychiatric History: Reports: ADHD, Addiction, Anxiety, Bipolar, Depression, Psych Hospitalization(s), Suicide Attempt Endocrine/Metabolic History: Reports: Hypothyroidism Hematologic History: Reports: None Immunologic History: Reports: None Oncologic (Cancer) History: Reports: Breast Dermatologic History: Reports: None - Infectious Disease History Infectious Disease History: Reports: Chicken Pox - Past Surgical History Head Surgeries/Procedures: Reports: None HEENT Surgical History: Reports: Tonsillectomy Respiratory Surgical History: Reports: None GI Surgical History: Reports: Appendectomy, Cholecystectomy, Colonoscopy Female Surgical History: Reports: Breast Reconstruction, Section, Hysterectomy, Oophorectomy Endocrine Surgical History: Reports: None Neurological Surgical History: Reports: None Musculoskeletal Surgical History: Reports: Other (See Below) Other Musculoskeletal Surgeries/Procedures:: LEFT MIDDLE FINGER SURGERY x3 Oncologic Surgical History: Reports: Mastectomy Other Oncologic Surgeries/Procedures: bilateral Social & Family History - Family History Family Medical History: Noncontributory - Tobacco Use Smoking Status *Q: Current Every Day Smoker Years of Tobacco use: 20 Packs/Tins Daily: 0.5 - Caffeine Use Caffeine Use: Reports: Coffee, Soda - Recreational Drug Use Recreational Drug Use: No ED ROS GENERAL - Review of Systems Review Of Systems: ROS reveals no pertinent complaints other than HPI. ED EXAM, BEHAVIORAL HEALTH - Physical Exam Exam: See Below Exam Limited By: No Limitations General Appearance: Alert, WD/WN, Anxious (This is an extremely anxious person looks like she is in a benzodiazepine withdrawal) Eye Exam: Bilateral Eye: Normal Inspection Ears: Normal External Exam Throat/Mouth: Normal Oropharynx Head: Atraumatic Neck: Normal Inspection Respiratory/Chest: Lungs Clear Cardiovascular: Regular Rate, Rhythm GI/Abdominal: Non-Tender Neurological: Alert, Other (See above) Psychiatric: Other (See above) Skin Exam: Warm, Dry COURSE, BEHAVIORAL HEALTH COMP - Course Vital Signs: Last Vital Signs Temp 36.9 C 08/07/19 19:58 Pulse 95 08/07/19 19:58 Resp 20 08/07/19 19:58 BP 132/91 H 08/07/19 19:58 Pulse Ox 93 L 08/07/19 19:58 Orders, Labs, Meds: Medications Discontinued Medications Generic Name Dose Route Start Last Admin Trade Name Humberto PRN Reason Stop Dose Admin Hydromorphone HCl 1 mg 08/07/19 22:16 08/07/19 22:21 Dilaudid IM 08/07/19 22:17 1 mg ONETIME ONE Administration Lorazepam 2 mg 08/07/19 22:15 08/07/19 22:21 Ativan IM 08/07/19 22:16 2 mg ONETIME ONE Administration Re-Assessment/Re-Exam: This lady received an injection of Ativan 2 mg and Dilaudid 1 mg IM. This seemed to give her some relief of the time she was discharged Departure - Departure Time of Disposition: 22:17 Disposition: Home, Self-Care 01 Condition: Fair Clinical Impression: Acute anxiety - Discharge Information Instructions: Living With Anxiety Referrals: Efraín Beasley NP [Primary Care Provider] - Forms: ED Department Discharge Additional Instructions: You received an injection of Ativan which is very similar to Valium (diazepam) and an injection of Dilaudid. Call your doctor first thing in the morning about refills
== END 2019-08-07 22:42 | disposition home or self-care (01) ==
LOC: JP.ED 18:15
DX: F41.9 Anxiety disorder, unspecified (principal); J44.9 Chronic obstructive pulmonary disease, unspecified; K21.9 Gastro-esophageal reflux disease without esophagitis; F32.9 Major depressive disorder, single episode, unspecified; E03.9 Hypothyroidism, unspecified; F17.210 Nicotine dependence, cigarettes, uncomplicated; Z88.5 Allergy status to narcotic agent; Z88.8 Allergy status to other drugs, medicaments and biological substances; Z91.048 Other nonmedicinal substance allergy status; Z91.040 Latex allergy status; Z79.899 Other long term (current) drug therapy
CPT/HCPCS: 96372; 99283; J1170; J2060

== ENCOUNTER 2019-08-24 17:00 | Emergency (ER) | payer MEDICAID ==
[2019-08-24] MEDS ORDERED: LORazepam 2 MG/ML SDV IM ONE (18:28)
[2019-08-24] MEDS ORDERED: HYDROmorphone 0.5 MG/0.5 ML Syringe IM ONE (18:28)
--- NOTE | 2019-08-24 18:30 | EDM.PDOC ---
ED HPI GENERAL MEDICAL PROBLEM - General Chief Complaint: General Stated Complaint: PAIN IN NECK,ANXIETY Time Seen by Provider: 08/24/19 18:10 Source of Information: Reports: Patient, Other ([place] Prescription Monitoring [employer] website ) History Limitations: Reports: Other (emotional distress ) - History of Present Illness INITIAL COMMENTS - FREE TEXT/NARRATIVE: Graciela is well known to the ER due to presenting frequently for repetitive minor injuries causing severe acute exacerbation of her chronic neck pain acute flares her anxiety and mental anguish and distress. Patient has a history of significant outbursts and thrown equipment in the department due to physicians and clinicians verbalizing concern regarding frequency and varying types of medications along with increasing doses of medications needed for the same effect. Patient was moving furniture today resulting in exacerbation of her neck pain today. Patient has been see at both [facility] and [place] [facility] for acute exacerbations of her chronic neck pain requiring increasing doses of Dilaudid 1mg to 2 mg and Valium to Ativan. Patient has been seeing psychiatrist monthly for mental health medication management and anxiety, Dr Madi Ness in [place], per [place] CERTIFIED SUBSTANCE ABUSE COUNSELOR prescribed Valium #90 on . Patient sees Efraín Beasley for primary care at [facility] who is responsible for her pain and muscle spasms treatments, per [place] CERTIFIED SUBSTANCE ABUSE COUNSELOR prescribed Soma (carisoprodol) 350mg and Tramadol 50mg #30 each on August 09. Patient intermittently sees Dr Castro for more routine Orthopedic concerns (non involving spine) per [place] CERTIFIED SUBSTANCE ABUSE COUNSELOR prescribed Oxycodone 24 plus 30 in March after (finger surgery?). Patient was referred to [facility] in [place] for MRI of her cervical spine then referred to a Neurosurgeon in [place] for consultation and see if pain is amendable to intra-operative treatment. Patient is waiting for prior authorization through work-comp for neck injury/pain and surgery but is planning to proceed even if work comp does not cover the surgical treatment. 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 Surgery planned for September 16. Preop visit early next week with Carlo Jacob. Patient has a ARMS worker who assessment patient 1-2 time per week and Counselor she sees once weekly. - Related Data Allergies Allergy/AdvReac Type Severity Reaction Status Date / Time adhesive tape Allergy Other Verified 08/24/19 17:18 codeine Allergy Hives Verified 08/24/19 17:18 cortisone Allergy Hives Verified 08/24/19 17:18 gabapentin Allergy Rash Verified 08/24/19 17:18 ketorolac [From Toradol] Allergy Rash Verified 08/24/19 17:18 latex Allergy Rash Verified 08/24/19 17:18 lidocaine Allergy Swelling Verified 08/24/19 17:18 meperidine [From Demerol] AdvReac Nausea Verified 08/24/19 17:18 metoclopramide [From Reglan] AdvReac Nausea Verified 08/24/19 17:18 morphine AdvReac Nausea Verified 08/24/19 17:18 venlafaxine [From Effexor] AdvReac Diarrhea Verified 08/24/19 17:18 Home Meds: Home Meds Omeprazole 40 mg PO DAILY 11/22/18 [History] Levothyroxine 125 mcg PO DAILY #30 tablet 12/26/18 [Rx] Ibuprofen 800 mg PO Q8H PRN 06/05/19 [History] Diazepam [Valium] 10 mg PO BID 06/07/19 [History] lamoTRIgine [Lamictal] 50 mg PO DAILY 06/07/19 [History] Albuterol [Ventolin HFA] 1 puff IH Q4HR PRN 07/21/19 [History] Carisoprodol [Soma] 250 mg PO TID 08/07/19 [History] lamoTRIgine 200 mg PO DAILY 08/24/19 [History] Past Medical History - Past Health History Medical/Surgical History: Denies Medical/Surgical History HEENT History: Reports: Impaired Vision Cardiovascular History: Reports: None Respiratory History: Reports: COPD Gastrointestinal History: Reports: Cholelithiasis, Colon Polyp, GERD Genitourinary History: Reports: None 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 s/p L 3rd finger pinning 04/08/19. Revision 05/17/19. Revision 06/17/19. Neurology states needs cervical fusion surgery Neurological History: Reports: Concussion Psychiatric History: Reports: ADHD, Addiction, Anxiety, Bipolar, Depression, Psych Hospitalization(s), Suicide Attempt Endocrine/Metabolic History: Reports: Hypothyroidism Hematologic History: Reports: None Immunologic History: Reports: None Oncologic (Cancer) History: Reports: Breast Dermatologic History: Reports: None - Infectious Disease History Infectious Disease History: Reports: Chicken Pox - Past Surgical History Head Surgeries/Procedures: Reports: None HEENT Surgical History: Reports: Tonsillectomy Respiratory Surgical History: Reports: None GI Surgical History: Reports: Appendectomy, Cholecystectomy, Colonoscopy Female Surgical History: Reports: Breast Reconstruction, Section, Hysterectomy, Oophorectomy Endocrine Surgical History: Reports: None Neurological Surgical History: Reports: None Musculoskeletal Surgical History: Reports: Other (See Below) Other Musculoskeletal Surgeries/Procedures:: LEFT MIDDLE FINGER SURGERY x3 Oncologic Surgical History: Reports: Mastectomy Other Oncologic Surgeries/Procedures: bilateral Social & Family History - Family History Family Medical History: Noncontributory - Tobacco Use Smoking Status *Q: Current Every Day Smoker Years of Tobacco use: 20 Packs/Tins Daily: 0.5 - Caffeine Use Caffeine Use: Reports: Coffee, Soda - Recreational Drug Use Recreational Drug Use: No ED ROS GENERAL - Review of Systems Review Of Systems: ROS reveals no pertinent complaints other than HPI. ED EXAM, GENERAL - Physical Exam Exam: See Below Free Text/Narrative:: HENT: Atraumatic. Moist mucous membranes. Eyes: EOMI. Conjunctiva normal. Neck: Very splinted limited movement due to pain. Respiratory: No respiratory distress. Normal 02 saturation Cardiovascular: normal color; extremities warm. Abdominal: Non-distended. No peritoneal signs Musculoskeletal: No deformities Normal ROM of extremities. Neurological: Alert and oriented x3. Normal tone and bulk. Normal speech. Skin: Warm and dry. No rash. Psychiatric: Normal affect. Normal behavior. Exam Limited By: Other (very anxious and emotional distress nto which is not helpful for her pain) General Appearance: Alert, WD/WN, Anxious, Severe Distress Eye Exam: Bilateral Eye: EOMI, PERRL Course - Vital Signs Last Recorded V/S: Last Vital Signs Temp 36.9 C 08/24/19 17:22 Pulse 79 08/24/19 17:22 Resp 28 H 08/24/19 17:22 BP 141/54 H 08/24/19 17:22 Pulse Ox 96 08/24/19 17:22 - Orders/Labs/Meds Meds: Medications Discontinued Medications Generic Name Dose Route Start Last Admin Trade Name Humberto PRN Reason Stop Dose Admin Hydromorphone HCl 2 mg 08/24/19 18:28 Dilaudid IM 08/24/19 18:29 ONETIME ONE Hydromorphone HCl 2 mg 08/24/19 18:39 Dilaudid IM 08/24/19 18:40 ONETIME ONE Lorazepam 2 mg 08/24/19 18:28 Ativan IM 08/24/19 18:29 ONETIME ONE - Radiology Interpretation Free Text/Narrative:: [place] CERTIFIED SUBSTANCE ABUSE COUNSELOR reviewed: NARX Scores Narcotic 341 Sedative 522 OVERDOSE RISK 320 ( range 000-999) Stimulant 000. Departure - Departure Time of Disposition: 19:11 Disposition: Home, Self-Care 01 Clinical Impression: Neck pain, Pain self-management deficit, Acute anxiety - Discharge Information Instructions: Radicular Pain, Managing Pain Without Opioids Referrals: Efraín Beasley SET UP / OPERATOR [Primary Care Provider] - Forms: ED Department Discharge Additional Instructions: 1. Call Primary Care provider clinic when every your have acute exacerbation of your chronic pain concerns for recommendations. 2. Continue current medications as prescribed. 3. I reviewed [place] CERTIFIED SUBSTANCE ABUSE COUNSELOR Score and offered a copy. I discussed concern regarding escalating doses of mediations and obtaining medications from multiple providers. 4. ER does not manage chronic pain but can assist with acute exacerbation under the directions of your primary care provider to ensure safety of medication combinations. 5. You should be very cautious taking Valium with Soma prescribed by other providers. 6. Consider alternative treatment of chronic pain. 7. Update Efraín Bealsey regarding the frequency of ER visits due to acute exacerbation of chronic pain and limited reserve/resources to manage self care options. - Problem List & Annotations (1) Acute anxiety SNOMED Code(s): 23532226, 22063467 Code(s): F41.9 - ANXIETY DISORDER, UNSPECIFIED Status: Acute Current Visit: Yes (2) Cervical radiculopathy SNOMED Code(s): 33553904 Code(s): M54.12 - RADICULOPATHY, CERVICAL REGION Status: Acute Current Visit: No (3) Pain self-management deficit SNOMED Code(s): 56778386 Code(s): Z65.9 - PROBLEM RELATED TO UNSPECIFIED PSYCHOSOCIAL CIRCUMSTANCES Status: Acute Current Visit: Yes
[2019-08-24] MEDS ORDERED: HYDROmorphone 1 MG/ML Syringe IM ONE (18:39)
== END 2019-08-24 19:22 | disposition home or self-care (01) ==
LOC: JP.ED 17:00
DX: M54.2 Cervicalgia (principal); J44.9 Chronic obstructive pulmonary disease, unspecified; K21.9 Gastro-esophageal reflux disease without esophagitis; E03.9 Hypothyroidism, unspecified; F41.9 Anxiety disorder, unspecified; F17.210 Nicotine dependence, cigarettes, uncomplicated; Z65.9 Problem related to unspecified psychosocial circumstances; Z79.899 Other long term (current) drug therapy; Z79.890 Hormone replacement therapy; Z91.048 Other nonmedicinal substance allergy status; Z88.5 Allergy status to narcotic agent; Z88.8 Allergy status to other drugs, medicaments and biological substances; Z88.6 Allergy status to analgesic agent; X50.0XXA Overexertion from strenuous movement or load, initial encounter; Y93.89 Activity, other specified
CPT/HCPCS: 96372; 99283; J1170; J2060

== ENCOUNTER 2019-09-24 18:37 | Emergency (ER) | payer MEDICAID ==
[2019-09-24] MEDS ORDERED: HYDROmorphone 1 MG/ML Syringe IM ONE (19:25)
--- NOTE | 2019-09-24 19:31 | EDM.PDOC ---
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 She says she called [facility] who did her neck surgery and they have not yet refilled her med. She is restricted for narcotic prescribers so cannot use [facility]. Says nothing is new just ran out of her medicine. 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 FIELD TECHNICIAN: Reports: Acetaminophen Neck Pain Score (Numeric/FACES): 10 - Related Data Allergies Allergy/AdvReac Type Severity Reaction Status Date / Time adhesive tape Allergy Other Verified 09/24/19 19:10 codeine Allergy Hives Verified 09/24/19 19:10 cortisone Allergy Hives Verified 09/24/19 19:10 gabapentin Allergy Rash Verified 09/24/19 19:10 ketorolac [From Toradol] Allergy Rash Verified 09/24/19 19:10 latex Allergy Rash Verified 09/24/19 19:10 lidocaine Allergy Swelling Verified 09/24/19 19:10 meperidine [From Demerol] AdvReac Nausea Verified 09/24/19 19:10 metoclopramide [From Reglan] AdvReac Nausea Verified 09/24/19 19:10 morphine AdvReac Nausea Verified 09/24/19 19:10 venlafaxine [From Effexor] AdvReac Diarrhea Verified 09/24/19 19:10 Home Meds: Home Meds Omeprazole 40 mg PO DAILY 11/22/18 [History] Levothyroxine 125 mcg PO DAILY #30 tablet 12/26/18 [Rx] Diazepam [Valium] 10 mg PO BID PRN 06/07/19 [History] lamoTRIgine [Lamictal] 50 mg PO DAILY 06/07/19 [History] Albuterol [Ventolin HFA] 1 puff IH Q4HR PRN 07/21/19 [History] Carisoprodol [Soma] 250 mg PO TID 08/07/19 [History] lamoTRIgine 200 mg PO DAILY 08/24/19 [History] LORazepam 2 mg PO Q4HR PRN 09/24/19 [History] diazePAM [Valium] 10 mg PO QID 09/24/19 [History] oxyCODONE 10 mg PO Q4HR 09/24/19 [History] Past Medical History - Past Health History Medical/Surgical History: Denies Medical/Surgical History HEENT History: Reports: Impaired Vision Cardiovascular History: Reports: None Respiratory History: Reports: COPD Gastrointestinal History: Reports: Cholelithiasis, Colon Polyp, GERD Genitourinary History: Reports: None RN HYPERBARIC History: Reports: Polycystic 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 s/p L 3rd finger pinning 04/08/19. Revision 05/17/19. Revision 06/17/19. Neurology states needs cervical fusion surgery Neurological History: Reports: Concussion Psychiatric History: Reports: ADHD, Addiction, Anxiety, Bipolar, Depression, Psych Hospitalization(s), Suicide Attempt Endocrine/Metabolic History: Reports: Hypothyroidism Hematologic History: Reports: None Immunologic History: Reports: None Oncologic (Cancer) History: Reports: Breast Dermatologic History: Reports: None - Infectious Disease History Infectious Disease History: Reports: Chicken Pox - Past Surgical History Head Surgeries/Procedures: Reports: None HEENT Surgical History: Reports: Tonsillectomy Respiratory Surgical History: Reports: None GI Surgical History: Reports: Appendectomy, Cholecystectomy, Colonoscopy Female Surgical History: Reports: Breast Reconstruction, Section, Hysterectomy, Oophorectomy Endocrine Surgical History: Reports: None Neurological Surgical History: Reports: None Musculoskeletal Surgical History: Reports: Other (See Below) Other Musculoskeletal Surgeries/Procedures:: LEFT MIDDLE FINGER SURGERY x3 Oncologic Surgical History: Reports: Mastectomy Other Oncologic Surgeries/Procedures: bilateral Social & Family History - Family History Family Medical History: Noncontributory - Tobacco Use Smoking Status *Q: Former Smoker Used Tobacco, but Quit: Yes Month/Year Tobacco Last Used: 4 weeks - Caffeine Use Caffeine Use: Reports: Coffee, Soda - Recreational Drug Use Recreational Drug Use: No ED ROS GENERAL - Review of Systems Review Of Systems: Comprehensive ROS is negative, except as noted in HPI. 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 nml As Tested, No Motor/Sensory Deficits, Alert, Normal Mood/Affect, Oriented x 3 Psychiatric: Normal Affect, Normal Mood Skin Exam: Normal Color, Warm/Dry Course - Vital Signs Last Recorded V/S: Last Vital Signs Temp 36.3 C 09/24/19 19:09 Pulse 99 09/24/19 19:09 Resp 16 09/24/19 19:09 BP 131/87 09/24/19 19:09 Pulse Ox 96 09/24/19 19:09 - Orders/Labs/Meds Meds: Medications Discontinued Medications Generic Name Dose Route Start Last Admin Trade Name Humberto PRN Reason Stop Dose Admin Hydromorphone HCl 2 mg 09/24/19 19:25 Dilaudid IM 09/24/19 19:26 ONETIME ONE Departure - Departure Time of Disposition: 19:45 Disposition: Home, Self-Care 01 Condition: Fair Clinical Impression: Other acute postoperative pain - Discharge Information *PRESCRIPTION DRUG MONITORING PROGRAM REVIEWED*: No *COPY OF PRESCRIPTION DRUG MONITORING REPORT IN PATIENT ELSA: No Referrals: Efraín Beasley NP [Primary Care Provider] - Additional Instructions: No driving tonight. Communicate with either your [place] providers or your primary care provider at [facility] in the morning regarding your meds.
== END 2019-09-24 20:05 | disposition home or self-care (01) ==
LOC: JP.ED 18:37
DX: G89.18 Other acute postprocedural pain (principal); M54.2 Cervicalgia; J44.9 Chronic obstructive pulmonary disease, unspecified; K21.9 Gastro-esophageal reflux disease without esophagitis; F41.9 Anxiety disorder, unspecified; F32.9 Major depressive disorder, single episode, unspecified; E03.9 Hypothyroidism, unspecified; Z88.6 Allergy status to analgesic agent; Z88.8 Allergy status to other drugs, medicaments and biological substances; Z91.09 Other allergy status, other than to drugs and biological substances; Z91.040 Latex allergy status; Z87.891 Personal history of nicotine dependence; Z79.899 Other long term (current) drug therapy; Z79.890 Hormone replacement therapy
CPT/HCPCS: 96372; 99283; J1170

== ENCOUNTER 2019-10-05 13:55 | Emergency (ER) | payer MEDICAID ==
[2019-10-05] MEDS ORDERED: HYDROmorphone 1 MG/ML Syringe IM ONE (14:34)
--- NOTE | 2019-10-05 14:42 | EDM.PDOC ---
ED HPI GENERAL MEDICAL PROBLEM - General Chief Complaint: Neck Problem Stated Complaint: PAIN IN NECK Time Seen by Provider: 10/05/19 14:25 Source of Information: Reports: Patient, Family History Limitations: Reports: No Limitations - History of Present Illness INITIAL COMMENTS - FREE TEXT/NARRATIVE: 43-year-old female in with neck pain. She had neck fusion 3 weeks ago, was doing better but her dog jumped up on her back last night causing increased pain. No neurologic deficits. She has oxycodone but it is not helping. Onset: Sudden Duration: Hour(s): (16 hours ago) Neck Pain Score (Numeric/FACES): 9 - Related Data Allergies Allergy/AdvReac Type Severity Reaction Status Date / Time adhesive tape Allergy Other Verified 10/05/19 14:20 codeine Allergy Hives Verified 10/05/19 14:20 cortisone Allergy Hives Verified 10/05/19 14:20 gabapentin Allergy Rash Verified 10/05/19 14:20 ketorolac [From Toradol] Allergy Rash Verified 10/05/19 14:20 latex Allergy Rash Verified 10/05/19 14:20 lidocaine Allergy Swelling Verified 10/05/19 14:20 meperidine [From Demerol] AdvReac Nausea Verified 10/05/19 14:20 metoclopramide [From Reglan] AdvReac Nausea Verified 10/05/19 14:20 morphine AdvReac Nausea Verified 10/05/19 14:20 venlafaxine [From Effexor] AdvReac Diarrhea Verified 10/05/19 14:20 Home Meds: Home Meds Omeprazole 40 mg PO DAILY 11/22/18 [History] Levothyroxine 125 mcg PO DAILY #30 tablet 12/26/18 [Rx] Diazepam [Valium] 10 mg PO BID PRN 06/07/19 [History] lamoTRIgine [Lamictal] 50 mg PO DAILY 06/07/19 [History] Albuterol [Ventolin HFA] 1 puff IH Q4HR PRN 07/21/19 [History] Carisoprodol [Soma] 250 mg PO TID 08/07/19 [History] lamoTRIgine 200 mg PO DAILY 08/24/19 [History] LORazepam 2 mg PO Q4HR PRN 09/24/19 [History] diazePAM [Valium] 10 mg PO QID 09/24/19 [History] oxyCODONE 10 mg PO Q4HR 09/24/19 [History] Past Medical History - Past Health History Medical/Surgical History: Denies Medical/Surgical History HEENT History: Reports: Impaired Vision Cardiovascular History: Reports: None Respiratory History: Reports: COPD Gastrointestinal History: Reports: Cholelithiasis, Colon Polyp, GERD Genitourinary History: Reports: None 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 s/p L 3rd finger pinning 04/08/19. Revision 05/17/19. Revision 06/17/19. Neurology states needs cervical fusion surgery Neurological History: Reports: Concussion Psychiatric History: Reports: ADHD, Addiction, Anxiety, Bipolar, Depression, Psych Hospitalization(s), Suicide Attempt Endocrine/Metabolic History: Reports: Hypothyroidism Hematologic History: Reports: None Immunologic History: Reports: None Oncologic (Cancer) History: Reports: Breast Dermatologic History: Reports: None - Infectious Disease History Infectious Disease History: Reports: Chicken Pox - Past Surgical History Head Surgeries/Procedures: Reports: None HEENT Surgical History: Reports: Tonsillectomy Respiratory Surgical History: Reports: None GI Surgical History: Reports: Appendectomy, Cholecystectomy, Colonoscopy Female Surgical History: Reports: Breast Reconstruction, Section, Hysterectomy, Oophorectomy Endocrine Surgical History: Reports: None Neurological Surgical History: Reports: None Musculoskeletal Surgical History: Reports: Other (See Below) Other Musculoskeletal Surgeries/Procedures:: LEFT MIDDLE FINGER SURGERY x3 Oncologic Surgical History: Reports: Mastectomy Other Oncologic Surgeries/Procedures: bilateral Social & Family History - Family History Family Medical History: Noncontributory - Tobacco Use Smoking Status *Q: Former Smoker Used Tobacco, but Quit: Yes Month/Year Tobacco Last Used: 1 month - Caffeine Use Caffeine Use: Reports: Coffee - Recreational Drug Use Recreational Drug Use: No ED ROS GENERAL - Review of Systems Review Of Systems: See Below Constitutional: Denies: Fever Respiratory: Denies: Shortness of Breath Cardiovascular: Denies: Chest Pain Neurological: Denies: Paresthesia Psychiatric: Reports: Anxiety ED EXAM, UPPER BACK/NECK PAIN - Physical Exam Exam: See Below Exam Limited By: No Limitations General Appearance: Alert, Anxious Eye Exam: Bilateral Eye: EOMI Head Exam: Atraumatic Neck Exam: Other (Wearing her cervical collar. Complains of superficial tenderness to palpation.) Course - Vital Signs Last Recorded V/S: Last Vital Signs Temp 96.3 F 10/05/19 14:11 Pulse 76 10/05/19 14:11 Resp 16 10/05/19 14:11 BP 110/76 10/05/19 14:11 Pulse Ox 98 10/05/19 14:11 - Orders/Labs/Meds Meds: Medications Discontinued Medications Generic Name Dose Route Start Last Admin Trade Name Humberto PRN Reason Stop Dose Admin Hydromorphone HCl 2 mg 10/05/19 14:34 10/05/19 14:41 Dilaudid IM 10/05/19 14:35 2 mg ONETIME ONE Administration - Re-Assessments/Exams Free Text/Narrative Re-Assessment/Exam: 10/05/19 14:40 It is becoming concerning considering this patient got 40 oxycodone 4 days ago and she says she only has "1 left". She is come in several times for Dilaudid injections, each time apparently when she runs out of medicine. I offered her Toradol but she gets "hives". I confronted her in front of her significant other about the number of pills she is using, he agreed to keep a closer eye on it. I cannot offer her any more pain pills because she is restricted, so she was given an injection of Dilaudid with the understanding she needs to call her primary surgeon on Monday. Departure - Departure Time of Disposition: 14:48 Disposition: Home, Self-Care 01 Clinical Impression: Neck pain - Discharge Information Instructions: Pain Medicine Instructions, [id number] Referrals: PCP,None [Primary Care Provider] - Forms: ED Department Discharge Care Plan Goals: Activity as tolerated, call your neurosurgeon on Monday to give him an update on your condition.
== END 2019-10-05 14:48 | disposition home or self-care (01) ==
LOC: JP.ED 13:55
DX: M54.2 Cervicalgia (principal); K21.9 Gastro-esophageal reflux disease without esophagitis; J44.9 Chronic obstructive pulmonary disease, unspecified; E03.9 Hypothyroidism, unspecified; Z79.899 Other long term (current) drug therapy; Z79.890 Hormone replacement therapy; Z87.891 Personal history of nicotine dependence; Z88.5 Allergy status to narcotic agent; Z88.8 Allergy status to other drugs, medicaments and biological substances; Z91.040 Latex allergy status; Z91.048 Other nonmedicinal substance allergy status; W54.1XXA Struck by dog, initial encounter
CPT/HCPCS: 96372; 99283; J1170

== ENCOUNTER 2019-10-30 17:04 | Emergency (ER) | payer MEDICAID ==
[2019-10-30] MEDS ORDERED: HYDROmorphone 1 MG/ML Syringe IM ONE (18:49)
--- NOTE | 2019-10-30 18:56 | EDM.PDOC ---
ED HPI GENERAL MEDICAL PROBLEM - General Chief Complaint: Neck Problem Stated Complaint: HAD SURGERY IN PAIN Time Seen by Provider: 10/30/19 18:45 Source of Information: Reports: Patient, Family, Old Records, RN History Limitations: Reports: No Limitations - History of Present Illness INITIAL COMMENTS - FREE TEXT/NARRATIVE: 44 yo female here with reported increase in her neck pain. I suspect she has a narcotic abuse problem as she is here often for pain related issues and usually asking for Dilaudid. Did not take any OTC meds today before coming to the ER. Says she fell on her slippery floor around midday today. Describes "knots" in her neck now. Onset: Today Onset Date: 10/30/19 Onset Time: 12:00 Duration: Hour(s):, Constant Location: Reports: Neck Quality: Reports: Ache Severity: Moderate Improves with: Reports: Rest Worsens with: Reports: None Context: Reports: Trauma Associated Symptoms: Reports: No Other Symptoms Treatments RAILROAD ENGINEER: Reports: Other (see below) (none) Posterior Neck Pain Score (Numeric/FACES): 10 - Related Data Allergies Allergy/AdvReac Type Severity Reaction Status Date / Time adhesive tape Allergy Other Verified 10/05/19 14:20 codeine Allergy Hives Verified 10/05/19 14:20 cortisone Allergy Hives Verified 10/05/19 14:20 gabapentin Allergy Rash Verified 10/05/19 14:20 ketorolac [From Toradol] Allergy Rash Verified 10/05/19 14:20 latex Allergy Rash Verified 10/05/19 14:20 lidocaine Allergy Swelling Verified 10/05/19 14:20 meperidine [From Demerol] AdvReac Nausea Verified 10/05/19 14:20 metoclopramide [From Reglan] AdvReac Nausea Verified 10/05/19 14:20 morphine AdvReac Nausea Verified 10/05/19 14:20 venlafaxine [From Effexor] AdvReac Diarrhea Verified 10/05/19 14:20 Home Meds: Home Meds Omeprazole 40 mg PO DAILY 11/22/18 [History] Levothyroxine 125 mcg PO DAILY #30 tablet 12/26/18 [Rx] Diazepam [Valium] 10 mg PO BID PRN 06/07/19 [History] lamoTRIgine [Lamictal] 50 mg PO DAILY 06/07/19 [History] Albuterol [Ventolin HFA] 1 puff IH Q4HR PRN 07/21/19 [History] Carisoprodol [Soma] 250 mg PO TID 08/07/19 [History] lamoTRIgine 200 mg PO DAILY 08/24/19 [History] diazePAM [Valium] 10 mg PO QID 09/24/19 [History] Past Medical History - Past Health History Medical/Surgical History: Denies Medical/Surgical History HEENT History: Reports: Impaired Vision Cardiovascular History: Reports: None Respiratory History: Reports: COPD Gastrointestinal History: Reports: Cholelithiasis, Colon Polyp, GERD Genitourinary History: Reports: None 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 s/p L 3rd finger pinning 04/08/19. Revision 05/17/19. Revision 06/17/19. Neurology states needs cervical fusion surgery Neurological History: Reports: Concussion Psychiatric History: Reports: ADHD, Addiction, Anxiety, Bipolar, Depression, Psych Hospitalization(s), Suicide Attempt Endocrine/Metabolic History: Reports: Hypothyroidism Hematologic History: Reports: None Immunologic History: Reports: None Oncologic (Cancer) History: Reports: Breast Dermatologic History: Reports: None - Infectious Disease History Infectious Disease History: Reports: Chicken Pox - Past Surgical History Head Surgeries/Procedures: Reports: None HEENT Surgical History: Reports: Tonsillectomy Respiratory Surgical History: Reports: None GI Surgical History: Reports: Appendectomy, Cholecystectomy, Colonoscopy Female Surgical History: Reports: Breast Reconstruction, Section, Hysterectomy, Oophorectomy Endocrine Surgical History: Reports: None Neurological Surgical History: Reports: None Musculoskeletal Surgical History: Reports: Other (See Below) Other Musculoskeletal Surgeries/Procedures:: LEFT MIDDLE FINGER SURGERY x3 Oncologic Surgical History: Reports: Mastectomy Other Oncologic Surgeries/Procedures: bilateral Social & Family History - Family History Family Medical History: Noncontributory - Tobacco Use Smoking Status *Q: Current Some Day Smoker Years of Tobacco use: 22 Packs/Tins Daily: 0.5 - Caffeine Use Caffeine Use: Reports: Coffee, Soda, Tea - Recreational Drug Use Recreational Drug Use: No ED ROS GENERAL - Review of Systems Review Of Systems: See Below Constitutional: Reports: No Symptoms HEENT: Reports: No Symptoms Respiratory: Reports: No Symptoms Cardiovascular: Reports: No Symptoms GI/Abdominal: Reports: No Symptoms : Reports: No Symptoms Musculoskeletal: Reports: Neck Pain Skin: Reports: No Symptoms Neurological: Reports: No Symptoms ED EXAM, UPPER BACK/NECK PAIN - Physical Exam Exam: See Below Exam Limited By: No Limitations General Appearance: Alert, WD/WN, No Apparent Distress Eye Exam: Bilateral Eye: PERRL (1-2 mm in size, constricted) Ears Exam: Normal External Exam, Normal Canal, Hearing Grossly Normal, Normal TMs Nose Exam: Normal Inspection, No Blood Throat/Mouth Exam: Normal Inspection, Normal Lips, Normal Oropharynx, Normal Voice, No Airway Compromise Head Exam: Atraumatic, Normocephalic Neck Exam: Full Range of Motion, Normal Alignment, Normal Inspection, Other (no neck spasm. ). 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 nml As Tested, No Motor/Sensory Deficits, Alert, Normal Mood/Affect, Oriented x 3 DTR: 2+: Bicep (R), Bicep (L) Psychiatric: Normal Mood, Anxious Skin Exam: Normal Color, Warm/Dry Course - Vital Signs Last Recorded V/S: Last Vital Signs Temp 36.2 C 10/30/19 17:15 Pulse 90 10/30/19 17:15 Resp 16 10/30/19 17:15 BP 120/74 10/30/19 17:15 Pulse Ox 97 10/30/19 17:15 - Orders/Labs/Meds Meds: Medications Discontinued Medications Generic Name Dose Route Start Last Admin Trade Name Humberto PRN Reason Stop Dose Admin Hydromorphone HCl 1.5 mg 10/30/19 18:49 Dilaudid IM 10/30/19 18:50 ONETIME ONE Departure - Departure Time of Disposition: 17:15 Disposition: Home, Self-Care 01 Condition: Fair Clinical Impression: Neck pain, Narcotic abuse - Discharge Information *PRESCRIPTION DRUG MONITORING PROGRAM REVIEWED*: No *COPY OF PRESCRIPTION DRUG MONITORING REPORT IN PATIENT ELSA: No Referrals: Efraín Beasley, ROLLER REPAIRER [Primary Care Provider] - Additional Instructions: Add acetaminophen to your current meds tonight if more pain relief is needed. Discuss with Efraín Roiko tomorrow your pain issues. Take precautions regarding your frequent falls. Sepsis Event Note - Evaluation Sepsis Screening Result: No Definite Risk - Focused Exam Vital Signs: Vital Signs Temp Pulse Resp BP Pulse Ox 10/30/19 17:15 36.2 C 90 16 120/74 97 Date Exam was Performed: 10/30/19 Time Exam was Performed: 18:51
== END 2019-10-30 19:06 | disposition home or self-care (01) ==
LOC: JP.ED 17:04
DX: M54.2 Cervicalgia (principal); F11.10 Opioid abuse, uncomplicated; F17.210 Nicotine dependence, cigarettes, uncomplicated; J44.9 Chronic obstructive pulmonary disease, unspecified; E03.9 Hypothyroidism, unspecified; F41.9 Anxiety disorder, unspecified; F31.9 Bipolar disorder, unspecified; Z79.899 Other long term (current) drug therapy; Z91.09 Other allergy status, other than to drugs and biological substances; Z88.5 Allergy status to narcotic agent; Z88.8 Allergy status to other drugs, medicaments and biological substances
CPT/HCPCS: 96372; 99283; J1170

== ENCOUNTER 2019-11-02 13:27 | Emergency (ER) | payer MEDICAID ==
[2019-11-02] MEDS ORDERED: Baclofen 10 MG Tab PO ONE (14:28)
[2019-11-02] MEDS ORDERED: HYDROmorphone 1 MG/ML Syringe IM ONE (14:29)
--- NOTE | 2019-11-02 14:35 | EDM.PDOC ---
ED HPI GENERAL MEDICAL PROBLEM - General Chief Complaint: Neck Problem Stated Complaint: NECK PAIN, TROUBLE SWALLOWING- POST SURGERY Time Seen by Provider: 11/02/19 14:30 Source of Information: Reports: Patient History Limitations: Reports: No Limitations - History of Present Illness INITIAL COMMENTS - FREE TEXT/NARRATIVE: pt arrived with on going neck pain particularly on the leeft side. # weeks ago she had a fusion from c3-c7. She has had sharp pain going up by her left ear. She is having difficulty swallowing and feels like her throat is swelling. She did have a front approach for the fusion. She is under alot of stress. She is not getting along with her current boyfriend and she is packing to move out. Onset: Gradual, Other ( She does have an appt with neurosurgery on Monday. ) Duration: Hour(s): Location: Reports: Neck Associated Symptoms: Reports: Other (pt is having diarrhea with what she eats. ) Neck Pain Score (Numeric/FACES): 10 - Related Data Allergies Allergy/AdvReac Type Severity Reaction Status Date / Time adhesive tape Allergy Other Verified 11/02/19 13:43 codeine Allergy Hives Verified 11/02/19 13:43 cortisone Allergy Hives Verified 11/02/19 13:43 gabapentin Allergy Rash Verified 11/02/19 13:43 ketorolac [From Toradol] Allergy Rash Verified 11/02/19 13:43 latex Allergy Rash Verified 11/02/19 13:43 lidocaine Allergy Swelling Verified 11/02/19 13:43 meperidine [From Demerol] AdvReac Nausea Verified 11/02/19 13:43 metoclopramide [From Reglan] AdvReac Nausea Verified 11/02/19 13:43 morphine AdvReac Nausea Verified 11/02/19 13:43 venlafaxine [From Effexor] AdvReac Diarrhea Verified 11/02/19 13:43 Home Meds: Home Meds Omeprazole 40 mg PO DAILY 11/22/18 [History] Levothyroxine 125 mcg PO DAILY #30 tablet 12/26/18 [Rx] lamoTRIgine [Lamictal] 50 mg PO DAILY 06/07/19 [History] Albuterol [Ventolin HFA] 1 puff IH Q4HR PRN 07/21/19 [History] lamoTRIgine 200 mg PO DAILY 08/24/19 [History] diazePAM [Valium] 10 mg PO QID 09/24/19 [History] Past Medical History - Past Health History Medical/Surgical History: Denies Medical/Surgical History HEENT History: Reports: Impaired Vision Cardiovascular History: Reports: None Respiratory History: Reports: COPD Gastrointestinal History: Reports: Cholelithiasis, Colon Polyp, GERD Genitourinary History: Reports: None 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 s/p L 3rd finger pinning 04/08/19. Revision 05/17/19. Revision 06/17/19. Neurology states needs cervical fusion surgery Neurological History: Reports: Concussion Psychiatric History: Reports: ADHD, Addiction, Anxiety, Bipolar, Depression, Psych Hospitalization(s), Suicide Attempt Endocrine/Metabolic History: Reports: Hypothyroidism Hematologic History: Reports: None Immunologic History: Reports: None Oncologic (Cancer) History: Reports: Breast Dermatologic History: Reports: None - Infectious Disease History Infectious Disease History: Reports: Chicken Pox - Past Surgical History Head Surgeries/Procedures: Reports: None HEENT Surgical History: Reports: Tonsillectomy Respiratory Surgical History: Reports: None GI Surgical History: Reports: Appendectomy, Cholecystectomy, Colonoscopy Female Surgical History: Reports: Breast Reconstruction, Section, Hysterectomy, Oophorectomy Endocrine Surgical History: Reports: None Neurological Surgical History: Reports: None Musculoskeletal Surgical History: Reports: Other (See Below) Other Musculoskeletal Surgeries/Procedures:: LEFT MIDDLE FINGER SURGERY x3 Oncologic Surgical History: Reports: Mastectomy Other Oncologic Surgeries/Procedures: bilateral Social & Family History - Family History Family Medical History: Noncontributory - Tobacco Use Smoking Status *Q: Current Every Day Smoker Years of Tobacco use: 22 Packs/Tins Daily: 0.5 - Caffeine Use Caffeine Use: Reports: Coffee, Soda, Tea - Recreational Drug Use Recreational Drug Use: No ED ROS GENERAL - Review of Systems Review Of Systems: See Below Constitutional: Reports: No Symptoms HEENT: Reports: Other (pt feels like she has a lump in her throat and she is having difficulty swallowing. ) Respiratory: Reports: No Symptoms Cardiovascular: Reports: No Symptoms Endocrine: Reports: No Symptoms GI/Abdominal: Reports: No Symptoms : Reports: No Symptoms Musculoskeletal: Reports: Other (pt is having alot of neck pain. ) ED EXAM, UPPER BACK/NECK PAIN - Physical Exam Exam: See Below Text/Narrative:: pt arrived with increased pain on the left side of her neck. She had a fusion of c3-c7 3 weeks ago. She is struiggling with all of the sharp pain which is going up the left side. Exam Limited By: No Limitations General Appearance: Alert, Anxious, Moderate Distress Ears Exam: Normal TMs Nose Exam: Normal Inspection Throat/Mouth Exam: Normal Inspection Head Exam: Atraumatic Neck Exam: Tenderness, Other (pt has a large muscle spasm. ) Cardiovascular/Respiratory: Regular Rate, Rhythm GI/Abdominal: Soft, Non-Tender Course - Vital Signs Last Recorded V/S: Last Vital Signs Temp 37.6 C 11/02/19 13:41 Pulse 90 11/02/19 13:41 Resp 18 11/02/19 13:41 BP 114/57 L 11/02/19 13:41 Pulse Ox 96 11/02/19 13:41 - Orders/Labs/Meds Meds: Medications Discontinued Medications Generic Name Dose Route Start Last Admin Trade Name Humberto PRN Reason Stop Dose Admin Baclofen 10 mg 11/02/19 14:28 11/02/19 14:36 Lioresal PO 11/02/19 14:29 10 mg ONETIME ONE Administration Hydromorphone HCl 1 mg 11/02/19 14:29 11/02/19 14:36 Dilaudid IM 11/02/19 14:30 1 mg ONETIME ONE Administration Lorazepam 0.5 mg 11/02/19 14:37 11/02/19 14:44 Ativan PO 11/02/19 14:38 0.5 mg ONETIME ONE Administration - Re-Assessments/Exams Free Text/Narrative Re-Assessment/Exam: 11/02/19 15:12 pt is doing very poorly nutrition marshall. She states she gets diarrhea easily and she feels like she can,t get food down. She was given baclofen 10 mg and dilaudid 1 mg im. She is more comfortable. Pt needs to start eating soft foods but regular meals. Departure - Departure Time of Disposition: 15:14 Disposition: Home, Self-Care 01 Condition: Fair Clinical Impression: Pain in neck, Cervical vertebral fusion, Nausea - Discharge Information Referrals: Efraín Beasley SUPPLIER QUALITY ENGINEERING MANAGER [Primary Care Provider] - Forms: ED Department Discharge Care Plan Goals: moist warm packs to the post cervical area, baclofen 10 mg bid for 1 week, prilosec 20 mg daily for stomach, decrease coffee intake to morning only, eat small reg ular meals soft food, percocet 5/325 1 tab q8h, #4, keep appt in [place] Monday. Sepsis Event Note - Evaluation Sepsis Screening Result: No Definite Risk - Focused Exam Vital Signs: Vital Signs Temp Pulse Resp BP Pulse Ox 11/02/19 13:41 37.6 C 90 18 114/57 L 96 Date Exam was Performed: 11/02/19 Time Exam was Performed: 15:12
[2019-11-02] MEDS ORDERED: LORazepam 0.5 MG Tab PO ONE (14:37)
== END 2019-11-02 15:28 | disposition home or self-care (01) ==
LOC: JP.ED 13:27
DX: M43.22 Fusion of spine, cervical region (principal); R11.0 Nausea; J44.9 Chronic obstructive pulmonary disease, unspecified; E03.9 Hypothyroidism, unspecified; F31.9 Bipolar disorder, unspecified; F41.9 Anxiety disorder, unspecified; Z91.09 Other allergy status, other than to drugs and biological substances; Z88.5 Allergy status to narcotic agent; Z79.899 Other long term (current) drug therapy; Z91.040 Latex allergy status
CPT/HCPCS: 96372; 99283; A9270; J1170

== ENCOUNTER 2019-11-13 15:38 | Emergency (ER) | payer MEDICAID ==
[2019-11-13] MEDS ORDERED: HYDROmorphone 0.5 MG/0.5 ML Syringe IM ONE (17:39)
[2019-11-13] MEDS ORDERED: traMADol 50 MG Tab PO ONE (17:40)
--- NOTE | 2019-11-13 17:46 | EDM.PDOC ---
ED HPI GENERAL MEDICAL PROBLEM - General Chief Complaint: Upper Extremity Injury/Pain Stated Complaint: NUMBNESS/PAIN RIGHT ARM Time Seen by Provider: 11/13/19 17:41 Source of Information: Reports: Patient History Limitations: Reports: No Limitations - History of Present Illness INITIAL COMMENTS - FREE TEXT/NARRATIVE: pt was seen in [place] and at this time several test will be ordered to follow up on the fusion that was done. She was offered percocet but she told the midlevel that she could no tolerate this so nothing was given for pain. She did call the neurosurgeons off today and talked to the surgeons nurse. She will call tomorrow and discuss the pain control issue. Onset: Other (pt is having increased pain and numbness in the rt arm. ) Duration: Hour(s): Location: Reports: Neck, Upper Extremity, Right Associated Symptoms: Reports: No Other Symptoms Right Neck Pain Score (Numeric/FACES): 7 - Related Data Allergies Allergy/AdvReac Type Severity Reaction Status Date / Time adhesive tape Allergy Other Verified 11/02/19 13:43 codeine Allergy Hives Verified 11/02/19 13:43 cortisone Allergy Hives Verified 11/02/19 13:43 gabapentin Allergy Rash Verified 11/02/19 13:43 ketorolac [From Toradol] Allergy Rash Verified 11/02/19 13:43 latex Allergy Rash Verified 11/02/19 13:43 lidocaine Allergy Swelling Verified 11/02/19 13:43 meperidine [From Demerol] AdvReac Nausea Verified 11/02/19 13:43 metoclopramide [From Reglan] AdvReac Nausea Verified 11/02/19 13:43 morphine AdvReac Nausea Verified 11/02/19 13:43 venlafaxine [From Effexor] AdvReac Diarrhea Verified 11/02/19 13:43 Home Meds: Home Meds Omeprazole 40 mg PO DAILY 11/22/18 [History] Levothyroxine 125 mcg PO DAILY #30 tablet 12/26/18 [Rx] lamoTRIgine [Lamictal] 50 mg PO DAILY 06/07/19 [History] Albuterol [Ventolin HFA] 1 puff IH Q4HR PRN 07/21/19 [History] lamoTRIgine 200 mg PO DAILY 08/24/19 [History] ClonazePAM [KlonoPIN] 2 mg PO TID 11/13/19 [History] QUEtiapine [SEROquel] 200 mg PO BEDTIME 11/13/19 [History] carisoprodoL [Carisoprodol] 350 mg PO TID 11/13/19 [History] Past Medical History - Past Health History Medical/Surgical History: Denies Medical/Surgical History HEENT History: Reports: Impaired Vision Cardiovascular History: Reports: None Respiratory History: Reports: COPD Gastrointestinal History: Reports: Cholelithiasis, Colon Polyp, GERD Genitourinary History: Reports: None 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 s/p L 3rd finger pinning 04/08/19. Revision 05/17/19. Revision 06/17/19. Neurology states needs cervical fusion surgery Neurological History: Reports: Concussion Psychiatric History: Reports: ADHD, Addiction, Anxiety, Bipolar, Depression, Psych Hospitalization(s), Suicide Attempt Endocrine/Metabolic History: Reports: Hypothyroidism Hematologic History: Reports: None Immunologic History: Reports: None Oncologic (Cancer) History: Reports: Breast Dermatologic History: Reports: None - Infectious Disease History Infectious Disease History: Reports: Chicken Pox - Past Surgical History Head Surgeries/Procedures: Reports: None HEENT Surgical History: Reports: Tonsillectomy Respiratory Surgical History: Reports: None GI Surgical History: Reports: Appendectomy, Cholecystectomy, Colonoscopy Female Surgical History: Reports: Breast Reconstruction, Section, Hysterectomy, Oophorectomy Endocrine Surgical History: Reports: None Neurological Surgical History: Reports: None Musculoskeletal Surgical History: Reports: Other (See Below) Other Musculoskeletal Surgeries/Procedures:: LEFT MIDDLE FINGER SURGERY x3 Oncologic Surgical History: Reports: Mastectomy Other Oncologic Surgeries/Procedures: bilateral Social & Family History - Family History Family Medical History: Noncontributory - Tobacco Use Smoking Status *Q: Former Smoker Used Tobacco, but Quit: Yes Month/Year Tobacco Last Used: [email or web address] - Caffeine Use Caffeine Use: Reports: Coffee - Recreational Drug Use Recreational Drug Use: No Review of Systems - Review of Systems Review Of Systems: See Below Eyes: Reports: No Symptoms Ears: Reports: No Symptoms Nose: Reports: No Symptoms Mouth/Throat: Reports: No Symptoms Respiratory: Reports: No Symptoms Cardiovascular: Reports: No Symptoms GI/Abdominal: Reports: No Symptoms Genitourinary: Reports: No Symptoms Musculoskeletal: Reports: Other (pain in the rt post cervical and the rt arm. She has increased numbness in the rt arm. She was just in [place] and she was not sent home with anything for pain. ) ED EXAM, GENERAL - Physical Exam Exam: See Below Free Text/Narrative:: pt has marked pain in the rt post cervical and rt arm. She has numbness and tingling in the rt arm. She is to be scheduled for a number of test by her neurosurgeon the first of the week. She was not given any meds for pain. The pt states that she was offered a perscription for percocet and she refused it because she feels it majkes her confused, She does well with hydrocodone. She is still not eating well. She will have a swallowing study done in [place]. She has been getting the lactose free boost and she is tolerating that better. She continues to loose wt Last visit here she was 62.2 kg and today she is 55.79. Exam Limited By: No Limitations General Appearance: Alert, Anxious, Other (pt is very upset. ) Ears: Normal TMs Neck: Other (pt has muscle tightness in the rt post cervical area. She is tender to palpate in that area. She has decreased strength in the rt arm. ) Cardiovascular: Regular Rate, Rhythm GI/Abdominal: Soft, Other (mild upper abdomanal tenderness) (Female) Exam: Deferred Course - Vital Signs Last Recorded V/S: Last Vital Signs Temp 36.3 C 11/13/19 16:07 Pulse 64 11/13/19 16:07 Resp 16 11/13/19 16:07 BP 143/114 H 11/13/19 16:07 Pulse Ox 95 11/13/19 16:07 - Orders/Labs/Meds Orders: Active Orders 24 hr Category Date Time Status traMADol [Ultram] Med 11/13/19 17:40 Once 50 mg PO ONETIME ONE Meds: Medications Discontinued Medications Generic Name Dose Route Start Last Admin Trade Name Freq PRN Reason Stop Dose Admin Hydromorphone HCl 0.5 mg 11/13/19 17:39 Dilaudid IM 11/13/19 17:40 ONETIME ONE - Re-Assessments/Exams Free Text/Narrative Re-Assessment/Exam: 11/13/19 17:53 pt was given tramodol 50 mg and dilaudid .5 im. Departure - Departure Time of Disposition: 17:53 Disposition: Home, Self-Care 01 Condition: Fair Clinical Impression: Ongoing cervical pain - Discharge Information Referrals: Efraín Beasley, CONSTRUCTION ANALYST [Primary Care Provider] - Care Plan Goals: cont wit the heat and cold, norco 5/325 q6h prn for pain, #5 call in the am. Insist that you be scheduled for your test the beginning of the week, advise them that you will need some pain management and advise the norco works well. Sepsis Event Note - Evaluation Sepsis Screening Result: No Definite Risk - Focused Exam Vital Signs: Vital Signs Temp Pulse Resp BP Pulse Ox 11/13/19 16:07 36.3 C 64 16 143/114 H 95 11/13/19 15:59 36.3 C 64 16 143/114 H 95 Date Exam was Performed: 11/13/19 Time Exam was Performed: 17:41 - My Orders Last 24 Hours: My Active Orders 11/13/19 17:40 traMADol [Ultram] 50 mg PO ONETIME ONE - Assessment/Plan Last 24 Hours: My Active Orders 11/13/19 17:40 traMADol [Ultram] 50 mg PO ONETIME ONE
== END 2019-11-13 18:31 | disposition home or self-care (01) ==
LOC: JP.ED 15:38
DX: M54.2 Cervicalgia (principal); J44.9 Chronic obstructive pulmonary disease, unspecified; K21.9 Gastro-esophageal reflux disease without esophagitis; F41.9 Anxiety disorder, unspecified; F32.9 Major depressive disorder, single episode, unspecified; E03.9 Hypothyroidism, unspecified; Z87.891 Personal history of nicotine dependence; Z88.8 Allergy status to other drugs, medicaments and biological substances; Z88.5 Allergy status to narcotic agent; Z91.040 Latex allergy status; Z91.048 Other nonmedicinal substance allergy status; Z79.899 Other long term (current) drug therapy
CPT/HCPCS: 96372; 99284; A9270; J1170

== ENCOUNTER 2019-12-09 09:38 | Emergency (ER) | payer MEDICAID ==
[2019-12-09] MEDS ORDERED: fentaNYL 100 MCG/2 ML SDV IVPUSH ONE (10:23)
--- NOTE | 2019-12-09 10:29 | EDM.PDOC ---
ED HPI GENERAL MEDICAL PROBLEM - General Chief Complaint: Neurological Problem Stated Complaint: SEIZURE Time Seen by Provider: 12/09/19 10:10 Source of Information: Reports: Patient, Family, RN Notes Reviewed History Limitations: Reports: No Limitations - History of Present Illness INITIAL COMMENTS - FREE TEXT/NARRATIVE: 44-year-old female presents emergency department with a complaint of seizure- like activity, she arrived by EMS. She has been struggling with chronic neck pain recently underwent cervical fusion uses pain medication of Percocet. The event she had today happened about an hour prior to presentation she remembers talking on the telephone describes a near syncopal event she went to the ground and started shaking uncontrollably arms and legs but was fully aware of her situation and we can recall all details. EMS services were called was provided 10 mg of Valium prior to transport at this time she still feels tremulous no history of seizure activity does admit to increasing chronic pain in her neck denies any fevers Neck Pain Score (Numeric/FACES): 10 - Related Data Allergies Allergy/AdvReac Type Severity Reaction Status Date / Time adhesive tape Allergy Other Verified 12/09/19 09:46 codeine Allergy Hives Verified 12/09/19 09:46 cortisone Allergy Hives Verified 12/09/19 09:46 gabapentin Allergy Rash Verified 12/09/19 09:46 ketorolac [From Toradol] Allergy Rash Verified 12/09/19 09:46 latex Allergy Rash Verified 12/09/19 09:46 lidocaine Allergy Swelling Verified 12/09/19 09:46 meperidine [From Demerol] AdvReac Nausea Verified 12/09/19 09:46 metoclopramide [From Reglan] AdvReac Nausea Verified 12/09/19 09:46 morphine AdvReac Nausea Verified 12/09/19 09:46 venlafaxine [From Effexor] AdvReac Diarrhea Verified 12/09/19 09:46 Home Meds: Home Meds Omeprazole 40 mg PO DAILY 11/22/18 [History] Levothyroxine 125 mcg PO DAILY #30 tablet 12/26/18 [Rx] Albuterol [Ventolin HFA] 1 puff IH Q4HR PRN 07/21/19 [History] lamoTRIgine 300 mg PO DAILY 08/24/19 [History] QUEtiapine [SEROquel] 200 mg PO BEDTIME 11/13/19 [History] carisoprodoL [Carisoprodol] 350 mg PO TID 11/13/19 [History] Past Medical History HEENT History: Reports: Impaired Vision Respiratory History: Reports: COPD Gastrointestinal History: Reports: Cholelithiasis, Colon Polyp, GERD [employer] History: Reports: Polycystic 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 s/p L 3rd finger pinning 04/08/19. Revision 05/17/19. Revision 06/17/19. Neurology states needs cervical fusion surgery Neurological History: Reports: Concussion Psychiatric History: Reports: ADHD, Addiction, Anxiety, Bipolar, Depression, Psych Hospitalization(s), Suicide Attempt Endocrine/Metabolic History: Reports: Hypothyroidism Oncologic (Cancer) History: Reports: Breast - Infectious Disease History Infectious Disease History: Reports: Chicken Pox - Past Surgical History Head Surgeries/Procedures: Reports: None HEENT Surgical History: Reports: Tonsillectomy Respiratory Surgical History: Reports: None GI Surgical History: Reports: Appendectomy, Cholecystectomy, Colonoscopy Female Surgical History: Reports: Breast Reconstruction, Section, Hysterectomy, Oophorectomy Endocrine Surgical History: Reports: None Neurological Surgical History: Reports: None Musculoskeletal Surgical History: Reports: Other (See Below) Other Musculoskeletal Surgeries/Procedures:: LEFT MIDDLE FINGER SURGERY x3 Oncologic Surgical History: Reports: Mastectomy Other Oncologic Surgeries/Procedures: bilateral Dermatological Surgical History: Reports: None Social & Family History - Family History Family Medical History: Noncontributory - Tobacco Use Smoking Status *Q: Current Every Day Smoker Years of Tobacco use: 20 Packs/Tins Daily: 1 Used Tobacco, but Quit: No Second Hand Smoke Exposure: No - Caffeine Use Caffeine Use: Reports: Coffee, Soda - Recreational Drug Use Recreational Drug Use: No ED ROS GENERAL - Review of Systems Review Of Systems: See Below Constitutional: Reports: Weight Loss. Denies: Fever, Chills HEENT: Reports: No Symptoms Respiratory: Reports: No Symptoms Cardiovascular: Reports: No Symptoms GI/Abdominal: Reports: No Symptoms : Reports: No Symptoms Musculoskeletal: Reports: Neck Pain Skin: Reports: No Symptoms Neurological: Reports: Seizure, Tremors Psychiatric: Reports: Anxiety ED EXAM, NEURO - Physical Exam Exam: See Below Text/Narrative:: General: Female, GCS of 15, tremulous and anxious, alert and oriented x3 HEENT: head is atraumatic normocephalic, eyes pupils equal round reactive to light, sclera clear no conjunctivitis appreciated, extraocular eye movements intact. Ears tympanic membranes clear and rodriguez landmarks and light reflex are present bilaterally canals are clear. Nose no septal deviation, nares are clear, no blood present. Mouth mucosa is moist and pink no erythema or exudate noted in soft palate, tongue is midline uvula is midline, dentition is intact. Neck: Supple no thyromegaly no tracheal deviation. Nodes: Cervical nodes subclavicular nodes nontender no palpable lymphadenopathy noted. Lungs: clear to auscultation bilaterally with symmetrical respirations, no adventitious noise appreciated. CV: Regular rate and rhythm S1 and S2 appreciated no murmurs rubs or gallops noted. Abdomen: Soft, nontender, no palpable masses or organomegaly appreciated, no distention no guarding bowel sounds are present, [scars ]. Neuro: Cranial nerves II test with pupillary light reflex 3 mm to 2 mm bilaterally, CN III test pupillary constriction, lid elevation and eye abduction bilaterally, CN IV downward movement of eyes bilaterally, CN V good jaw movement, CN lateral deviation of the eyes bilaterally to finger movement , CN VII symmetrical smile shows teeth without difficulty, CN VIII pass finger rub to ears bilaterally, CN IX adequate voice and tone, CN X adequate voice and tone no difficulty swallowing, CN XI can shrug shoulders without difficulty, CN XII can stick tongue out without difficulty, cranial nerves II to XII intact as tested, can move upper and lower extremities without difficulty no focal neurologic deficit Skin: Warm and dry, intact Extremities: No lower extremity edema appreciated, pedal pulse is +2. Course - Vital Signs Last Recorded V/S: Last Vital Signs Temp 97.6 F 12/09/19 09:55 Pulse 70 12/09/19 11:47 Resp 14 12/09/19 11:47 BP 133/84 12/09/19 11:47 Pulse Ox 98 12/09/19 10:21 - Orders/Labs/Meds Orders: Active Orders 24 hr Category Date Time Status EKG Documentation Completion [RC] ASDIRECTED Care 12/09/19 10:26 Active Lactated Ringers [Ringers, Lactated] 1,000 ml Med 12/09/19 10:30 Active IV .BOLUS EKG 12 Lead [EK] Stat Ther 12/09/19 10:26 Ordered Medication Orders Lactated Ringer's (Ringers, Lactated) 1,000 mls @ 999 mls/hr IV .BOLUS MARISABEL Last Admin: 12/09/19 10:44 Dose: 999 mls/hr Labs: Laboratory Tests 12/09/19 12/09/19 12/09/19 Range/Units 10:21 10:21 10:21 WBC 8.2 (4.5-11.0) K/uL RBC 5.06 (3.30-5.50) M/uL Hgb 15.5 H (12.0-15.0) g/dL Hct 46.9 (36.0-48.0) % MCV 93 (80-98) fL MCH 31 (27-31) pg MCHC 33 (32-36) % Plt Count 298 (150-400) K/uL Neut % (Auto) 62 (36-66) % Lymph % (Auto) 26 (24-44) % [place] % (Auto) 8 H (2-6) % Eos % (Auto) 4 (2-4) % Baso % (Auto) 1 (0-1) % Sodium 141 (140-148) mmol/L Potassium 4.0 (3.6-5.2) mmol/L Chloride 104 (100-108) mmol/L Carbon Dioxide 24 (21-32) mmol/L Anion Gap 13.1 (5.0-14.0) mmol/L BUN 12 (7-18) mg/dL Creatinine 1.0 (0.6-1.0) mg/dL Est Cr Clr Drug Dosing 62.57 mL/min Estimated GFR (MDRD) 60 (>60) Glucose 90 (74-106) mg/dL Lactic Acid 2.3 H (0.4-2.0) mmol/L Calcium 9.4 (8.5-10.1) mg/dL Total Bilirubin 0.3 D (0.2-1.0) mg/dL AST 20 (15-37) U/L ALT 32 (12-78) U/L Alkaline Phosphatase 131 H (46-116) U/L Total Protein 7.2 (6.4-8.2) g/dL Albumin 3.7 (3.4-5.0) g/dL Globulin 3.5 (2.3-3.5) g/dL Albumin/Globulin Ratio 1.1 L (1.2-2.2) Salicylates (2.0-20.0) mg/dL Urine Opiates Screen (NEGATIVE) Ur Oxycodone Screen (NEGATIVE) Urine Methadone Screen (NEGATIVE) Ur Propoxyphene Screen (NEGATIVE) Acetaminophen 0.0 L (10.0-30.0) ug/mL Ur Barbiturates Screen (NEGATIVE) Ur Tricyclics Screen (NEGATIVE) Ur Phencyclidine Scrn (NEGATIVE) Ur Amphetamine Screen (NEGATIVE) U Methamphetamines Scrn (NEGATIVE) Urine MDMA Screen (NEGATIVE) U Benzodiazepines Scrn (NEGATIVE) U Cocaine Metab Screen (NEGATIVE) U Marijuana (THC) Screen (NEGATIVE) Ethyl Alcohol mg/dL 12/09/19 12/09/19 12/09/19 Range/Units 10:21 10:21 11:23 WBC (4.5-11.0) K/uL RBC (3.30-5.50) M/uL Hgb (12.0-15.0) g/dL Hct (36.0-48.0) % MCV (80-98) fL MCH (27-31) pg MCHC (32-36) % Plt Count (150-400) K/uL Neut % (Auto) (36-66) % Lymph % (Auto) (24-44) % [place] % (Auto) (2-6) % Eos % (Auto) (2-4) % Baso % (Auto) (0-1) % Sodium (140-148) mmol/L Potassium (3.6-5.2) mmol/L Chloride (100-108) mmol/L Carbon Dioxide (21-32) mmol/L Anion Gap (5.0-14.0) mmol/L BUN (7-18) mg/dL Creatinine (0.6-1.0) mg/dL Est Cr Clr Drug Dosing mL/min Estimated GFR (MDRD) (>60) Glucose (74-106) mg/dL Lactic Acid (0.4-2.0) mmol/L Calcium (8.5-10.1) mg/dL Total Bilirubin (0.2-1.0) mg/dL AST (15-37) U/L ALT (12-78) U/L Alkaline Phosphatase (46-116) U/L Total Protein (6.4-8.2) g/dL Albumin (3.4-5.0) g/dL Globulin (2.3-3.5) g/dL Albumin/Globulin Ratio (1.2-2.2) Salicylates 4.3 (2.0-20.0) mg/dL Urine Opiates Screen Negative (NEGATIVE) Ur Oxycodone Screen Negative (NEGATIVE) Urine Methadone Screen Negative (NEGATIVE) Ur Propoxyphene Screen Negative (NEGATIVE) Acetaminophen (10.0-30.0) ug/mL Ur Barbiturates Screen Negative (NEGATIVE) Ur Tricyclics Screen Negative (NEGATIVE) Ur Phencyclidine Scrn Negative (NEGATIVE) Ur Amphetamine Screen Negative (NEGATIVE) U Methamphetamines Scrn Negative (NEGATIVE) Urine MDMA Screen Negative (NEGATIVE) U Benzodiazepines Scrn Presumptive positive H (NEGATIVE) U Cocaine Metab Screen Negative (NEGATIVE) U Marijuana (THC) Screen Negative (NEGATIVE) Ethyl Alcohol < 3 mg/dL Meds: Medications Generic Name Dose Route Start Last Admin Trade Name Freq PRN Reason Stop Dose Admin Lactated Ringer's 1,000 mls @ 999 mls/hr 12/09/19 10:30 12/09/19 10:44 Ringers, Lactated IV 999 mls/hr .BOLUS MARISABEL Administration Discontinued Medications Generic Name Dose Route Start Last Admin Trade Name Freq PRN Reason Stop Dose Admin Fentanyl 100 mcg 12/09/19 10:23 12/09/19 10:45 Sublimaze IVPUSH 12/09/19 10:24 100 mcg ONETIME ONE Administration Lorazepam 1 mg 12/09/19 11:52 12/09/19 12:25 Ativan IVPUSH 12/09/19 11:53 1 mg ONETIME ONE Administration Departure - Departure Time of Disposition: 12:52 Disposition: Home, Self-Care 01 Condition: Fair (Wound) Clinical Impression: Seizure-like activity - Discharge Information Referrals: PCP,None [Primary Care Provider] - Forms: ED Department Discharge Additional Instructions: Continue with your regular medications, please followup with your primary care provider in 2-3 days if not better, please call return to the emergency department with worsening of symptoms. Sepsis Event Note - Evaluation Sepsis Screening Result: No Definite Risk - Focused Exam Vital Signs: Vital Signs Temp Pulse Resp BP Pulse Ox 12/09/19 11:47 70 14 133/84 12/09/19 10:21 93 17 163/85 H 98 12/09/19 09:55 97.6 F 98 19 119/92 H 100 12/09/19 09:44 97.6 F 98 19 119/92 H 100 Date Exam was Performed: 12/09/19 Time Exam was Performed: 12:51 - My Orders Last 24 Hours: My Active Orders 12/09/19 10:26 EKG Documentation Completion [RC] ASDIRECTED EKG 12 Lead [EK] Stat 12/09/19 10:30 Lactated Ringers [Ringers, Lactated] 1,000 ml IV .BOLUS - Assessment/Plan Last 24 Hours: My Active Orders 12/09/19 10:26 EKG Documentation Completion [RC] ASDIRECTED EKG 12 Lead [EK] Stat 12/09/19 10:30 Lactated Ringers [Ringers, Lactated] 1,000 ml IV .BOLUS Plan: Assessment Acuity = acute Site and laterality = seizure-like activity Etiology = probable anxiety and stress related Manifestations = none Location of injury = Home Lab values = CBC, CMP, urine drug screen, EKG, CT scan of the head all within normal limits Plan I did review lab work CT scan results with her she feels back to her normal baseline with Ativan provided in the emergency department, plan is discharged home follow-up primary care 2 to 3 days if not better This note was dictated using [employer] voice recognition software please call with any questions on syntax or grammar.
[2019-12-09] MEDS ORDERED: Lactated Ringers 1,000 ML IV SCH (10:30)
--- NOTE | 2019-12-09 10:56 | CT ---
Head wo Cont CLINICAL HISTORY: Seizure-like activity COMPARISON: 05/01/2019 TECHNIQUE: Transverse scans were obtained from the base of the skull through the vertex without IV contrast on a multislice, multidetector CT scanner. Auto dosage reduction and iterative reconstruction techniques employed. FINDINGS: No focal abnormal parenchymal density is seen. There is no mass effect, hemorrhage, or extraaxial collection. The basal cisterns and sulci over the convexities are normal. The ventricles are normal for age. Patient has chronic pansinusitis IMPRESSION: No acute intracranial abnormality Chronic pansinusitis
[2019-12-09] MEDS ORDERED: LORazepam 2 MG/ML SDV IVPUSH ONE (11:52)
== END 2019-12-09 13:01 | disposition home or self-care (01) ==
LOC: JP.ED 09:38
DX: R25.8 Other abnormal involuntary movements (principal); J44.9 Chronic obstructive pulmonary disease, unspecified; K21.9 Gastro-esophageal reflux disease without esophagitis; F41.9 Anxiety disorder, unspecified; F32.9 Major depressive disorder, single episode, unspecified; E03.9 Hypothyroidism, unspecified; F17.210 Nicotine dependence, cigarettes, uncomplicated; Z88.8 Allergy status to other drugs, medicaments and biological substances; Z88.5 Allergy status to narcotic agent; Z91.040 Latex allergy status; Z91.048 Other nonmedicinal substance allergy status; Z79.899 Other long term (current) drug therapy
CPT/HCPCS: 36415; 70450; 80053; 80305; 80307; 83605; 85025; 93005; 96361; 96374; 96375; 99285; J2060; J3010; J7120

== ENCOUNTER 2020-01-07 09:14 | Emergency (ER) | payer MEDICAID ==
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
[2020-01-07] MEDS ORDERED: LORazepam 2 MG/ML SDV IVPUSH ONE (09:55)
[2020-01-07] MEDS ORDERED: Sodium Chloride 0.9% 1,000 ML IV SCH ×2 (10:00→11:15)
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
[2020-01-07] MEDS ORDERED: Ketorolac 30 MG/ML SDV IVPUSH ONE (10:37)
[2020-01-07] MEDS ORDERED: HYDROmorphone 0.5 MG/0.5 ML Syringe IVPUSH ONE (11:13)
[2020-01-07] MEDS ORDERED: lamoTRIgine 100 MG Tab PO ONE (11:48)
== END 2020-01-07 13:00 | disposition home or self-care (01) ==
LOC: JP.ED 09:14
DX: E86.0 Dehydration (principal); F41.9 Anxiety disorder, unspecified; F17.210 Nicotine dependence, cigarettes, uncomplicated; J44.9 Chronic obstructive pulmonary disease, unspecified; K21.9 Gastro-esophageal reflux disease without esophagitis; F31.9 Bipolar disorder, unspecified; Z88.5 Allergy status to narcotic agent; Z88.8 Allergy status to other drugs, medicaments and biological substances; Z91.040 Latex allergy status
CPT/HCPCS: 36415; 70450; 80053; 80305; 80307; 81001; 84443; 85025; 96361; 96374; 96375; 99285; A9270; J1170; J2060; J7030

== ENCOUNTER 2020-02-13 05:57 | Emergency (ER) | payer MEDICAID ==
--- NOTE | 2020-02-13 06:50 | EDM.PDOC ---
<OfficerDaniel - Last Filed: 02/13/20 07:37> ED HPI GENERAL MEDICAL PROBLEM - General Chief Complaint: General Stated Complaint: DIZZY Time Seen by Provider: 02/13/20 06:40 - Related Data Allergies Allergy/AdvReac Type Severity Reaction Status Date / Time adhesive tape Allergy Other Verified 02/13/20 06:09 codeine Allergy Hives Verified 02/13/20 06:09 cortisone Allergy Hives Verified 02/13/20 06:09 gabapentin Allergy Rash Verified 02/13/20 06:09 ketorolac [From Toradol] Allergy Rash Verified 02/13/20 06:09 latex Allergy Rash Verified 02/13/20 06:09 lidocaine Allergy Swelling Verified 02/13/20 06:09 meperidine [From Demerol] AdvReac Nausea Verified 02/13/20 06:09 metoclopramide [From Reglan] AdvReac Nausea Verified 02/13/20 06:09 morphine AdvReac Nausea Verified 02/13/20 06:09 venlafaxine [From Effexor] AdvReac Diarrhea Verified 02/13/20 06:09 Home Meds: Home Meds Omeprazole 40 mg PO DAILY 11/22/18 [History] Albuterol [Ventolin HFA] 1 puff IH Q4HR PRN 07/21/19 [History] lamoTRIgine 300 mg PO DAILY 08/24/19 [History] QUEtiapine [SEROquel] 200 mg PO BEDTIME 11/13/19 [History] Ibuprofen 800 mg PO Q8HR PRN 01/07/20 [History] LORazepam [Lorazepam] 2 mg PO QID 01/07/20 [History] Levothyroxine Sodium 137 mcg PO ACBREAKFAST 01/07/20 [History] Course - Vital Signs Last Recorded V/S: Last Vital Signs Temp 97.0 F 02/13/20 06:04 Pulse 73 02/13/20 06:04 Resp 18 02/13/20 06:04 BP 126/85 02/13/20 06:21 Pulse Ox 100 02/13/20 06:04 Orthostatic Blood Pressure [ 126/86 Standing] Orthostatic Blood Pressure [ 133/92 Sitting] Orthostatic Blood Pressure [ 126/85 Supine] - Orders/Labs/Meds Labs: Laboratory Tests 04/16/20 04/16/20 Range/Units 07:08 07:08 WBC 12.2 H (4.5-11.0) K/uL RBC 4.51 (3.30-5.50) M/uL Hgb 13.7 (12.0-15.0) g/dL Hct 41.7 (36.0-48.0) % MCV 93 (80-98) fL MCH 30 (27-31) pg MCHC 33 (32-36) % Plt Count 275 (150-400) K/uL Neut % (Auto) 76 H (36-66) % Lymph % (Auto) 15 L (24-44) % [place] % (Auto) 7 H (2-6) % Eos % (Auto) 2 (2-4) % Baso % (Auto) 0 (0-1) % Sodium 139 L (140-148) mmol/L Potassium 4.4 (3.6-5.2) mmol/L Chloride 103 (100-108) mmol/L Carbon Dioxide 28 (21-32) mmol/L Anion Gap 12.4 (5.0-14.0) mmol/L BUN 12 (7-18) mg/dL Creatinine 1.2 H (0.6-1.0) mg/dL Est Cr Clr Drug Dosing 51.68 mL/min Estimated GFR (MDRD) 49 L (>60) Glucose 74 (74-106) mg/dL Calcium 8.9 (8.5-10.1) mg/dL Total Bilirubin 0.7 (0.2-1.0) mg/dL AST 21 (15-37) U/L ALT 27 (12-78) U/L Alkaline Phosphatase 103 (46-116) U/L Total Protein 6.3 L (6.4-8.2) g/dL Albumin 3.6 (3.4-5.0) g/dL Globulin 2.7 (2.3-3.5) g/dL Albumin/Globulin Ratio 1.3 (1.2-2.2) Departure - Departure Time of Disposition: 07:37 Disposition: Home, Self-Care 01 Condition: Fair Clinical Impression: Anxiety - Discharge Information Instructions: Living With Anxiety Referrals: Efraín Beasley WAYBI[employer] CLERK [Primary Care Provider] - Forms: ED Department Discharge Additional Instructions: Continue with your regular medications, please followup with your primary care provider in 3-5 days if not better, please call return to the emergency department with worsening of symptoms. Sepsis Event Note - Focused Exam Date Exam was Performed: 02/13/20 Time Exam was Performed: 07:37 - Assessment/Plan Plan: Assessment Generalized anxiety disorder Plan She felt significantly better with no intervention blood work is still pending she has to be discharged home have her follow-up with primary care 3 to 5 days if no improvement <Gil Duffy - Last Filed: 02/15/20 07:35> ED HPI GENERAL MEDICAL PROBLEM - General Source of Information: Reports: Patient History Limitations: Reports: No Limitations - History of Present Illness INITIAL COMMENTS - FREE TEXT/NARRATIVE: 44-year-old female was at work, her third day of work, when she suddenly felt vertiginous and unsteady and shaky. She called her who brought her in to be seen. She has had a history of "seizure-like activity" and had neck fusion last fall. She has chronic anxiety. She thought maybe her blood sugar was low so she drank some orange juice but it did not help so she came in to be seen. She arrives stable but tremulous, appears very anxious but her speech is clear. She denies any peripheral paresthesias. On arrival orthostatics were done which were not significantly abnormal although her pulse went up when standing, but when she was standing she was very symptomatic. No fevers or chills, no cough or shortness of breath, denies chest pain. She does have a headache. When she woke this morning she was putting her clothes on and felt a slight snap in her left neck followed by a slight headache but when she got to work she felt fine, the symptoms started after arriving to work. Onset: Sudden (Fairly suddenly within the last hour) Associated Symptoms: Reports: Headaches, Malaise, Weakness. Denies: Confusion, Chest Pain, Cough, Loss of Appetite, Nausea/Vomiting, Shortness of Breath Past Medical History - Past Health History Medical/Surgical History: Denies Medical/Surgical History HEENT History: Reports: Impaired Vision Cardiovascular History: Reports: None Respiratory History: Reports: COPD Gastrointestinal History: Reports: Cholelithiasis, Colon Polyp, GERD Genitourinary History: Reports: None TAKER [employer]IL[employer] History: Reports: Polycystic 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 s/p L 3rd finger pinning 04/08/19. Revision 05/17/19. Revision 06/17/19. Neurology states needs cervical fusion surgery Neurological History: Reports: Concussion, Seizure Other Neuro History: 1st seizure on 12/09/2019 Psychiatric History: Reports: ADHD, Addiction, Anxiety, Bipolar, Depression, Psych Hospitalization(s), Suicide Attempt Endocrine/Metabolic History: Reports: Hypothyroidism Hematologic History: Reports: None Immunologic History: Reports: None Oncologic (Cancer) History: Reports: Breast Dermatologic History: Reports: None - Infectious Disease History Infectious Disease History: Reports: Chicken Pox - Past Surgical History Head Surgeries/Procedures: Reports: None HEENT Surgical History: Reports: Tonsillectomy Respiratory Surgical History: Reports: None GI Surgical History: Reports: Appendectomy, Cholecystectomy, Colonoscopy Female Surgical History: Reports: Breast Reconstruction, Section, Hysterectomy, Oophorectomy Endocrine Surgical History: Reports: None Musculoskeletal Surgical History: Reports: Other (See Below) Other Musculoskeletal Surgeries/Procedures:: LEFT MIDDLE FINGER SURGERY x3 Oncologic Surgical History: Reports: Mastectomy Other Oncologic Surgeries/Procedures: bilateral Dermatological Surgical History: Reports: None Social & Family History - Family History Family Medical History: Noncontributory - Tobacco Use Smoking Status *Q: Light Tobacco Smoker Years of Tobacco use: 20 Packs/Tins Daily: 0.2 - Caffeine Use Caffeine Use: Reports: None - Recreational Drug Use Recreational Drug Use: No ED ROS GENERAL - Review of Systems Review Of Systems: See Below Constitutional: Denies: Fever, Chills HEENT: Reports: Other (Is slightly photophobic). Denies: Vision Change Respiratory: Denies: Shortness of Breath Cardiovascular: Denies: Chest Pain GI/Abdominal: Denies: Nausea, Vomiting : Reports: No Symptoms Musculoskeletal: Reports: Neck Pain Skin: Reports: No Symptoms Neurological: Reports: Dizziness, Headache, Difficulty Walking Psychiatric: Reports: Anxiety ED EXAM, GENERAL - Physical Exam Exam: See Below Exam Limited By: No Limitations General Appearance: Alert, Anxious Eye Exam: Left Eye: Nystagmus (Possibly some mild nystagmus looking to the left) Ear Exam: Bilateral Ear: TM normal Head: Atraumatic Neck: No: Carotid Bruit Respiratory/Chest: No Respiratory Distress, Lungs Clear Cardiovascular: Regular Rate, Rhythm. No: Extra Beats GI/Abdominal: Non-Tender Extremities: Normal Inspection, No Pedal Edema Neurological: Alert, Oriented, No Motor/Sensory Deficits, Other (Fairly significant resting tremor of the hands, very anxious) Psychiatric: Anxious Skin Exam: Warm, Dry Course - Orders/Labs/Meds Labs: Laboratory Tests 02/13/20 02/13/20 Range/Units 07:08 07:08 WBC 12.2 H (4.5-11.0) K/uL RBC 4.51 (3.30-5.50) M/uL Hgb 13.7 (12.0-15.0) g/dL Hct 41.7 (36.0-48.0) % MCV 93 (80-98) fL MCH 30 (27-31) pg MCHC 33 (32-36) % Plt Count 275 (150-400) K/uL Neut % (Auto) 76 H (36-66) % Lymph % (Auto) 15 L (24-44) % [place] % (Auto) 7 H (2-6) % Eos % (Auto) 2 (2-4) % Baso % (Auto) 0 (0-1) % Sodium 139 L (140-148) mmol/L Potassium 4.4 (3.6-5.2) mmol/L Chloride 103 (100-108) mmol/L Carbon Dioxide 28 (21-32) mmol/L Anion Gap 12.4 (5.0-14.0) mmol/L BUN 12 (7-18) mg/dL Creatinine 1.2 H (0.6-1.0) mg/dL Est Cr Clr Drug Dosing 51.68 mL/min Estimated GFR (MDRD) 49 L (>60) Glucose 74 (74-106) mg/dL Calcium 8.9 (8.5-10.1) mg/dL Total Bilirubin 0.7 (0.2-1.0) mg/dL AST 21 (15-37) U/L ALT 27 (12-78) U/L Alkaline Phosphatase 103 (46-116) U/L Total Protein 6.3 L (6.4-8.2) g/dL Albumin 3.6 (3.4-5.0) g/dL Globulin 2.7 (2.3-3.5) g/dL Albumin/Globulin Ratio 1.3 (1.2-2.2) - Re-Assessments/Exams Free Text/Narrative Re-Assessment/Exam: 02/13/20 06:50 Review previous records, she has presented with similar syndromes in the past. A normal head CT was done within the last 2 months. CBC and CMP were obtained and care was turned over to Officer at shift change. Sepsis Event Note - Evaluation Sepsis Screening Result: No Definite Risk - Focused Exam Date Exam was Performed: 02/15/20 Time Exam was Performed: 07:34
== END 2020-02-13 07:44 | disposition home or self-care (01) ==
LOC: JP.ED 05:57
DX: F41.9 Anxiety disorder, unspecified (principal); K21.9 Gastro-esophageal reflux disease without esophagitis; F41.1 Generalized anxiety disorder; F31.9 Bipolar disorder, unspecified; E03.9 Hypothyroidism, unspecified; F17.210 Nicotine dependence, cigarettes, uncomplicated; J44.9 Chronic obstructive pulmonary disease, unspecified; Z91.09 Other allergy status, other than to drugs and biological substances; Z88.5 Allergy status to narcotic agent; Z88.8 Allergy status to other drugs, medicaments and biological substances; Z91.040 Latex allergy status; Z88.6 Allergy status to analgesic agent; Z79.899 Other long term (current) drug therapy
CPT/HCPCS: 36415; 80053; 85025; 99284

== ENCOUNTER 2020-05-17 09:02 | Emergency (ER) | payer MEDICAID ==
--- NOTE | 2020-05-17 10:26 | EDM.PDOC ---
ED HPI GENERAL MEDICAL PROBLEM - General Chief Complaint: General Stated Complaint: NECK PAIN AND ANXIETY Time Seen by Provider: 05/17/20 10:14 Source of Information: Reports: Patient History Limitations: Reports: No Limitations - History of Present Illness INITIAL COMMENTS - FREE TEXT/NARRATIVE: 44-year-old female who has a history of cervical spine fusion and anxiety presented to the ED today with neck pain, anxiety and fever. She dove into shallow water yesterday and injured her neck. She denies any pain extending into her upper or lower extremities. She reports moderate pain that is persistent and continuous. She feels her injury has triggered an anxiety attack. She uses lorazepam at home. It is not controlling her anxiety very well. She also feels that she is dehydrated and claims she has not urinated for 2 days. She had a fever of 100.1 F on admission but denies any symptoms of fever or chills. She denies diaphoresis. She has a chronic right ear problem but denies any increase or acute worsening. She does not have any respiratory, GI or symptoms. She denies a rash. Bilateral Shoulder Pain Score (Numeric/FACES): 10 - Related Data Allergies Allergy/AdvReac Type Severity Reaction Status Date / Time lidocaine Allergy Severe Swelling Verified 05/17/20 09:47 codeine Allergy Intermediate Hives Verified 05/17/20 09:47 cortisone Allergy Intermediate Hives Verified 05/17/20 09:47 ketorolac [From Toradol] Allergy Intermediate Rash Verified 05/17/20 09:47 adhesive tape Allergy Mild Other Verified 05/17/20 09:47 gabapentin Allergy Mild Rash Verified 05/17/20 09:47 latex Allergy Mild Rash Verified 05/17/20 09:47 metoclopramide [From Reglan] AdvReac Intermediate Nausea Verified 05/17/20 09:47 meperidine [From Demerol] AdvReac Mild Nausea Verified 05/17/20 09:47 morphine AdvReac Mild Nausea Verified 05/17/20 09:47 venlafaxine [From Effexor] AdvReac Mild Diarrhea Verified 05/17/20 09:47 Home Meds: Home Meds Omeprazole 40 mg PO DAILY 11/22/18 [History] Albuterol [Ventolin HFA] 1 puff IH Q4HR PRN 07/21/19 [History] lamoTRIgine 200 mg PO DAILY 08/24/19 [History] QUEtiapine [SEROquel] 200 mg PO BEDTIME 11/13/19 [History] Ibuprofen 800 mg PO Q8HR PRN 01/07/20 [History] LORazepam [Lorazepam] 2 mg PO QID 01/07/20 [History] Levothyroxine Sodium 137 mcg PO ACBREAKFAST 01/07/20 [History] Acetaminophen [Tylenol Extra Strength] 1,000 mg PO Q8HR PRN 05/17/20 [History] Past Medical History - Past Health History Medical/Surgical History: Denies Medical/Surgical History HEENT History: Reports: Impaired Vision Cardiovascular History: Reports: None Respiratory History: Reports: COPD Gastrointestinal History: Reports: Cholelithiasis, Colon Polyp, GERD Genitourinary History: Reports: None 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 s/p L 3rd finger pinning 04/08/19. Revision 05/17/19. Revision 06/17/19. Neurology states needs cervical fusion surgery. Cervical fusion surgery August 2019 Neurological History: Reports: Concussion, Seizure Other Neuro History: 1st seizure on 12/09/2019 Psychiatric History: Reports: ADHD, Addiction, Anxiety, Bipolar, Depression, Psych Hospitalization(s), Suicide Attempt Endocrine/Metabolic History: Reports: Hypothyroidism Hematologic History: Reports: None Immunologic History: Reports: None Oncologic (Cancer) History: Reports: Breast Dermatologic History: Reports: None - Infectious Disease History Infectious Disease History: Reports: Chicken Pox - Past Surgical History Head Surgeries/Procedures: Reports: None HEENT Surgical History: Reports: Tonsillectomy Respiratory Surgical History: Reports: None GI Surgical History: Reports: Appendectomy, Cholecystectomy, Colonoscopy Female Surgical History: Reports: Breast Reconstruction, Section, Hysterectomy, Oophorectomy Endocrine Surgical History: Reports: None Musculoskeletal Surgical History: Reports: Other (See Below) Other Musculoskeletal Surgeries/Procedures:: LEFT MIDDLE FINGER SURGERY x3 Oncologic Surgical History: Reports: Mastectomy Other Oncologic Surgeries/Procedures: bilateral Dermatological Surgical History: Reports: None Social & Family History - Family History Family Medical History: Noncontributory - Tobacco Use Smoking Status *Q: Current Every Day Smoker Years of Tobacco use: 14 Packs/Tins Daily: 0.5 - Caffeine Use Caffeine Use: Reports: Coffee - Recreational Drug Use Recreational Drug Use: No ED ROS GENERAL - Review of Systems Review Of Systems: See Below Constitutional: Reports: Fever, Fatigue. Denies: Chills HEENT: Reports: No Symptoms Respiratory: Denies: Shortness of Breath, Cough GI/Abdominal: Denies: Diarrhea, Nausea, Vomiting : Denies: Dysuria, Flank Pain, Frequency Skin: Denies: Rash Neurological: Denies: Headache, Numbness, Weakness Psychiatric: Reports: Anxiety ED EXAM, GENERAL - Physical Exam Exam: See Below Exam Limited By: No Limitations General Appearance: Alert, WD/WN, Anxious, Mild Distress Ears: Normal External Exam, Normal Canal, Normal TMs Neck: Other (Is tender over the mid cervical spine on palpation of the posterior neck. She is able to rotate her head to 45 degrees each side. She had no signs of trauma in the anterior part of the neck. She had no step offs on palpation of the cervical spine. There is no hematoma noted. She was placed in cervical immobilizer.) Respiratory/Chest: No Respiratory Distress, Lungs Clear, Normal Breath Sounds Cardiovascular: Regular Rate, Rhythm, No Gallop, No Murmur GI/Abdominal: Non-Tender Extremities: Normal Inspection Neurological: Alert, Oriented, Normal Cognition, No Motor/Sensory Deficits Psychiatric: Anxious Skin Exam: Warm, Dry, Intact, No Rash Course - Vital Signs Text/Narrative:: This patient presents to the ED with an acute neck strain and anxiety. She has no neurological symptoms and her neurological exam is normal. She has some tenderness on palpation of her neck so a CT scan of the cervical spine was ordered and done however the patient did not want to wait for the report. She requested IV injection of Dilaudid when she first presented and I explained to her that I was going to prescribe fentanyl and she agreed. The fentanyl did not provide any relief and I offered Ofirmev which she refused. Patient has a low- grade fever of 100.1 F. Her white blood count is slightly elevated. He had no significant findings on her physical exam nor did she have any subjective symptoms that pointed to a specific infection. Again the patient decided to leave before urinalysis returned. She reported not urinating for 2 days however after 1 glass of water and nearly a liter of IV fluids she urinated twice. Her creatinine as elevated 1.2 and electrolytes are normal. She might have been mildly dehydrated. The patient is leaving the hospital AGAINST MEDICAL ADVICE and she understands the risks of focal spine injury and the consequences willing to take those risks. She refused to sign an AMA form. The patient can follow- up with her primary care provider or return to ER if she has concerns. The marian elizabeth was in stable condition at discharge. Last Recorded V/S: Last Vital Signs Temp 37.4 C 05/17/20 10:28 Pulse 74 05/17/20 11:08 Resp 18 05/17/20 11:08 BP 141/81 H 05/17/20 11:08 Pulse Ox 95 05/17/20 11:08 - Orders/Labs/Meds Orders: Active Orders 24 hr Category Date Time Status EKG Documentation Completion [RC] STAT Care 05/17/20 10:30 Active Cervical Spine wo Cont [CT] Stat Exams 05/17/20 10:29 Taken Acetaminophen [Ofirmev] 1,000 mg Med 05/17/20 11:29 Active Premix Bag 1 bag IV NOW Sodium Chloride 0.9% [Normal Saline] 1,000 ml Med 05/17/20 10:30 Active IV ASDIRECTED Medication Orders Sodium Chloride (Normal Saline) 1,000 mls @ 1,000 mls/hr IV ASDIRECTED MARISABEL Last Admin: 05/17/20 10:43 Dose: 1,000 mls/hr Documented by: PREILOR Acetaminophen 1,000 mg/ Premix 100 mls @ 400 mls/hr IV NOW ONE Stop: 05/17/20 11:43 Labs: Laboratory Tests 05/17/20 05/17/20 Range/Units 10:43 10:43 WBC 13.3 H (4.5-11.0) K/uL RBC 5.05 (3.30-5.50) M/uL Hgb 15.7 H D (12.0-15.0) g/dL Hct 46.5 (36.0-48.0) % MCV 92 (80-98) fL MCH 31 (27-31) pg MCHC 34 (32-36) % Plt Count 370 (150-400) K/uL Neut % (Auto) 72 H (36-66) % Lymph % (Auto) 18 L (24-44) % Hutchinson % (Auto) 7 H (2-6) % Eos % (Auto) 3 (2-4) % Baso % (Auto) 1 (0-1) % Sodium 141 (140-148) mmol/L Potassium 4.5 (3.6-5.2) mmol/L Chloride 103 (100-108) mmol/L Carbon Dioxide 27 (21-32) mmol/L Anion Gap 11.3 (5.0-14.0) mmol/L BUN 12 (7-18) mg/dL Creatinine 1.2 H (0.6-1.0) mg/dL Est Cr Clr Drug Dosing 52.48 mL/min Estimated GFR (MDRD) 49 L (>60) Glucose 101 (74-106) mg/dL Calcium 9.3 (8.5-10.1) mg/dL Meds: Medications Generic Name Dose Route Start Last Admin Trade Name Freq PRN Reason Stop Dose Admin Sodium Chloride 1,000 mls @ 1,000 mls/hr 05/17/20 10:30 05/17/20 10:43 Normal Saline IV 1,000 mls/hr ASDIRECTED MARISABEL Administration Acetaminophen 1,000 mg/ Premix 100 mls @ 400 mls/hr 05/17/20 11:29 IV 05/17/20 11:43 NOW ONE Discontinued Medications Generic Name Dose Route Start Last Admin Trade Name Freq PRN Reason Stop Dose Admin Fentanyl 50 mcg 05/17/20 10:27 05/17/20 10:51 Sublimaze IVPUSH 05/17/20 10:28 50 mcg ONETIME ONE Administration Ondansetron HCl 4 mg 05/17/20 10:27 05/17/20 10:49 Zofran IVPUSH 05/17/20 10:28 4 mg ONETIME ONE Administration Departure - Departure Time of Disposition: 11:40 Disposition: Admitted As Inpatient 65 Condition: Good Clinical Impression: Neck muscle strain, Anxiety, Febrile illness, acute - Discharge Information Instructions: Cervical Strain and Sprain Rehab-[facility] Referrals: Anjali Branham DO [Primary Care Provider] - Forms: ED Department Discharge Additional Instructions: Follow up with your primary care provider. Return to the ER as possible. Sepsis Event Note (ED) - Evaluation Sepsis Screening Result: Possible Sepsis Risk - Focused Exam Vital Signs: Vital Signs Temp Pulse Resp BP Pulse Ox 05/17/20 11:08 74 18 141/81 H 95 05/17/20 10:28 37.4 C 05/17/20 09:39 100.1 C H 92 20 119/82 96 - My Orders Last 24 Hours: My Active Orders 05/17/20 10:29 Cervical Spine wo Cont [CT] Stat 05/17/20 10:30 EKG Documentation Completion [RC] STAT Sodium Chloride 0.9% [Normal Saline] 1,000 ml IV ASDIRECTED 05/17/20 11:29 Acetaminophen [Ofirmev] 1,000 mg Premix Bag 1 bag IV NOW - Assessment/Plan Last 24 Hours: My Active Orders 05/17/20 10:29 Cervical Spine wo Cont [CT] Stat 05/17/20 10:30 EKG Documentation Completion [RC] STAT Sodium Chloride 0.9% [Normal Saline] 1,000 ml IV ASDIRECTED 05/17/20 11:29 Acetaminophen [Ofirmev] 1,000 mg Premix Bag 1 bag IV NOW
[2020-05-17] MEDS ORDERED: Ondansetron 4 MG/2 ML SDV IVPUSH ONE (10:27)
[2020-05-17] MEDS ORDERED: fentaNYL 100 MCG/2 ML SDV IVPUSH ONE (10:27)
[2020-05-17] MEDS ORDERED: Sodium Chloride 0.9% 1,000 ML IV SCH (10:30)
[2020-05-17] MEDS ORDERED: Acetaminophen 1,000 MG in Premix Bag 1 BAG IV ONE (11:29)
--- NOTE | 2020-05-17 12:09 | CRLCT ---
INDICATION: Trauma, injury. TECHNIQUE: CT cervical spine without contrast. COMPARISON: None FINDINGS: Vertebrae: Alignment is normal. No acute fracture evident. There is interbody and anterior hardware fusion C3-7. Hardware appears in satisfactory position. Discs and facet joints: Disc spaces are unremarkable outside of the fused segments. Unremarkable facet joints. Extraspinal findings: Prevertebral soft tissues, visualized airway, and visualized lungs are unremarkable. IMPRESSION: No sign of acute injury in the cervical spine. Dictated by Jose Mast MD @ 05/17/2020 12:07:02 PM Please note that all CT scans at this facility use dose modulation, iterative reconstruction, and/or weight-based dosing when appropriate to reduce radiation dose to as low as reasonably achievable. Dictated by: Jose Mast MD @ 05/17/2020 12:07:11 (Electronically Signed)
== END 2020-05-17 11:35 | disposition critical access hospital (66) ==
LOC: JP.ED 09:02
DX: S16.1XXA Strain of muscle, fascia and tendon at neck level, initial encounter (principal); F41.9 Anxiety disorder, unspecified; R50.9 Fever, unspecified; J44.9 Chronic obstructive pulmonary disease, unspecified; K21.9 Gastro-esophageal reflux disease without esophagitis; F31.9 Bipolar disorder, unspecified; E03.9 Hypothyroidism, unspecified; Z88.8 Allergy status to other drugs, medicaments and biological substances; Z88.5 Allergy status to narcotic agent; Z88.1 Allergy status to other antibiotic agents; Z91.040 Latex allergy status; Z91.048 Other nonmedicinal substance allergy status; Z79.899 Other long term (current) drug therapy; F17.210 Nicotine dependence, cigarettes, uncomplicated; X58.XXXA Exposure to other specified factors, initial encounter
CPT/HCPCS: 36415; 72125; 80048; 85025; 93005; 93010; 96361; 96374; 96375; 99284; J2405; J3010; J7030

== ENCOUNTER 2020-06-04 06:59 | Emergency (ER) | payer MEDICAID, OTHER ==
[2020-06-04] MEDS ORDERED: LORazepam 2 MG/ML SDV IVPUSH ONE (07:31)
[2020-06-04] MEDS ORDERED: HYDROmorphone 0.5 MG/0.5 ML Syringe IVPUSH ONE (07:42)
--- NOTE | 2020-06-04 07:42 | EDM.PDOC ---
ED HPI GENERAL MEDICAL PROBLEM - General Chief Complaint: Neck Problem Stated Complaint: FELL AT WORK Time Seen by Provider: 06/04/20 07:35 Source of Information: Reports: Patient, RN History Limitations: Reports: No Limitations (pt is quite anxious) - History of Present Illness INITIAL COMMENTS - FREE TEXT/NARRATIVE: Graciela is a 44yo female that presents to the ED for c/o 10/10 neck pain that occurred after a fall yesterday at 1600 (15 hours ago). She was at work and stated that she tripped over a crate in the walk-in freezer and caught herself with her right arm. She has chronic pain of the right shoulder but states that the fall has exacerbated the pain. Rate 6/10 today. She is mostly concerned about her neck as she has a plate from C3-C7 that was placed in the fall of 2018. She is very anxious in the room- states that she has underlying anxiety. Onset: Sudden Onset Date: 06/03/20 Onset Time: 16:00 Duration: Getting Worse Location: Reports: Neck Quality: Reports: Sharp Severity: Severe Improves with: Reports: Immobilization Worsens with: Reports: Movement Associated Symptoms: Reports: Other (anxiety) neck Pain Score (Numeric/FACES): 10 - Related Data Allergies Allergy/AdvReac Type Severity Reaction Status Date / Time lidocaine Allergy Severe Swelling Verified 06/04/20 07:09 codeine Allergy Intermediate Hives Verified 06/04/20 07:09 cortisone Allergy Intermediate Hives Verified 06/04/20 07:09 ketorolac [From Toradol] Allergy Intermediate Rash Verified 06/04/20 07:09 adhesive tape Allergy Mild Other Verified 06/04/20 07:09 gabapentin Allergy Mild Rash Verified 06/04/20 07:09 latex Allergy Mild Rash Verified 06/04/20 07:09 metoclopramide [From Reglan] AdvReac Intermediate Nausea Verified 06/04/20 07:09 meperidine [From Demerol] AdvReac Mild Nausea Verified 06/04/20 07:09 morphine AdvReac Mild Nausea Verified 06/04/20 07:09 venlafaxine [From Effexor] AdvReac Mild Diarrhea Verified 06/04/20 07:09 Home Meds: Home Meds Omeprazole 40 mg PO DAILY 11/22/18 [History] Albuterol [Ventolin HFA] 1 puff IH Q4HR PRN 09/22/19 [History] lamoTRIgine 200 mg PO DAILY 08/24/19 [History] QUEtiapine [SEROquel] 400 mg PO BEDTIME 11/13/19 [History] Ibuprofen 800 mg PO Q8HR PRN 01/07/20 [History] LORazepam [Lorazepam] 2 mg PO QID 01/07/20 [History] Levothyroxine Sodium 137 mcg PO ACBREAKFAST 01/07/20 [History] Acetaminophen [Tylenol Extra Strength] 1,000 mg PO Q8HR PRN 05/17/20 [History] Past Medical History - Past Health History Medical/Surgical History: Denies Medical/Surgical History HEENT History: Reports: Impaired Vision Cardiovascular History: Reports: None Respiratory History: Reports: COPD Gastrointestinal History: Reports: Cholelithiasis, Colon Polyp, GERD Genitourinary History: Reports: None 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 s/p L 3rd finger pinning 04/08/19. Revision 05/17/19. Revision 06/17/19. Neurology states needs cervical fusion surgery. Cervical fusion surgery August 2019 Neurological History: Reports: Concussion, Seizure Other Neuro History: 1st seizure on 12/09/2019 Psychiatric History: Reports: ADHD, Addiction, Anxiety, Bipolar, Depression, Psych Hospitalization(s), Suicide Attempt Endocrine/Metabolic History: Reports: Hypothyroidism Hematologic History: Reports: None Immunologic History: Reports: None Oncologic (Cancer) History: Reports: Breast Dermatologic History: Reports: None - Infectious Disease History Infectious Disease History: Reports: Chicken Pox - Past Surgical History Head Surgeries/Procedures: Reports: None HEENT Surgical History: Reports: Tonsillectomy GI Surgical History: Reports: Appendectomy, Cholecystectomy, Colonoscopy Female Surgical History: Reports: Breast Reconstruction, Section, Hysterectomy, Mastectomy, Oophorectomy Musculoskeletal Surgical History: Reports: Other (See Below) Other Musculoskeletal Surgeries/Procedures:: LEFT MIDDLE FINGER SURGERY x3 Oncologic Surgical History: Reports: Mastectomy Other Oncologic Surgeries/Procedures: bilateral Social & Family History - Family History Family Medical History: Noncontributory - Tobacco Use Smoking Status *Q: Current Every Day Smoker Years of Tobacco use: 20 Packs/Tins Daily: 1 Used Tobacco, but Quit: No Second Hand Smoke Exposure: Yes - Caffeine Use Caffeine Use: Reports: Coffee - Recreational Drug Use Recreational Drug Use: No ED ROS GENERAL - Review of Systems Review Of Systems: See Below Constitutional: Reports: No Symptoms HEENT: Reports: No Symptoms Respiratory: Reports: No Symptoms Cardiovascular: Reports: No Symptoms Endocrine: Reports: No Symptoms GI/Abdominal: Reports: No Symptoms : Reports: No Symptoms Musculoskeletal: Reports: Neck Pain (08/08) Skin: Reports: No Symptoms Neurological: Reports: No Symptoms Psychiatric: Reports: Anxiety Hematologic/Lymphatic: Reports: No Symptoms Immunologic: Reports: No Symptoms ED EXAM, UPPER BACK/NECK PAIN - Physical Exam Exam: See Below Exam Limited By: No Limitations General Appearance: Alert, WD/WN, Anxious Ears Exam: Normal External Exam, Hearing Grossly Normal Nose Exam: Normal Inspection Head Exam: Atraumatic, Normocephalic Neck Exam: Normal Alignment, Limited Range of Motion (unable to flex, extend, and minimal rotation), Paraspinous Muscle Tender (left > right), Tenderness. No: Spinous Processes Tender Nexus Criteria: No: Evidence of Intoxication, Altered Level of Consciousness, Focal Neurological Deficit Cardiovascular/Respiratory: Regular Rate, Rhythm, Normal Peripheral Pulses, Normal Breath Sounds, No Respiratory Distress Back Exam: Normal Inspection Extremities: Normal Inspection, Normal Range of Motion, Normal Capillary Refill Neurologic: No Motor/Sensory Deficits (to bilateral upper arms), Normal Mood/Affect, Oriented x 3 Psychiatric: Anxious, Tearful Skin Exam: Normal Color Lymphatic: No Adenopathy Course - Vital Signs Last Recorded V/S: Last Vital Signs Temp 97 F 06/04/20 07:08 Pulse 78 06/04/20 07:08 Resp 20 06/04/20 07:08 BP 157/97 H 06/04/20 07:08 Pulse Ox 97 06/04/20 07:08 - Orders/Labs/Meds Meds: Medications Discontinued Medications Generic Name Dose Route Start Last Admin Trade Name Rudyq PRN Reason Stop Dose Admin Cyclobenzaprine HCl 15 mg 06/04/20 08:13 06/04/20 08:30 Flexeril PO 06/04/20 08:14 Not Given ONETIME ONE Hydromorphone HCl 0.5 mg 06/04/20 07:42 06/04/20 07:47 Dilaudid IVPUSH 06/04/20 07:43 0.5 mg ONETIME ONE Administration Lorazepam 1 mg 06/04/20 07:31 06/04/20 07:39 Ativan IVPUSH 06/04/20 07:32 1 mg ONETIME ONE Administration - Radiology Interpretation Free Text/Narrative:: radiology reading negative for acute processes - Re-Assessments/Exams Free Text/Narrative Re-Assessment/Exam: 06/04/20 08:35 after ativan and dilaudid, pt is feeling better. Has increased ROM to Neck. rates pain 03/08- requesting to go home. will notify when official x-ray readings are available. Free Text/Narrative Re-Assessment/Exam: 06/04/20 09:15 patient notified that radiology reading did not find any malalignment, fractures, or acute injury Departure - Departure Time of Disposition: 08:27 Disposition: Home, Self-Care 01 Clinical Impression: Neck pain with history of cervical spinal surgery - Discharge Information Instructions: Cervical Sprain, [id number] Referrals: PCP,None [Primary Care Provider] - Forms: ED Department Discharge Additional Instructions: Your official radiology reading of your cervical neck x-ray is pending. We will notify you of the results when they are available. Use your Soma and ativan as needed for continue pain. Follow-up with Dr Branham in 3-5 days if you are not better. Call or return to ED with any worsening of symptoms. Sepsis Event Note (ED) - Evaluation Sepsis Screening Result: No Definite Risk - Focused Exam Vital Signs: Vital Signs Temp Pulse Resp BP Pulse Ox 06/04/20 07:08 97 F 78 20 157/97 H 97 - Assessment/Plan Plan: discharge home with continued use of home medications. F/U with Dr Branham if pain continues. Pt agreeable to plan.
[2020-06-04] MEDS ORDERED: Cyclobenzaprine 10 MG Tab PO ONE (08:13)
--- NOTE | 2020-06-04 09:15 | CR ---
Cervical Spine 2V or 3V CLINICAL HISTORY: Neck pain, previous surgery FINDINGS: Patient has had previous anterior fixation with a plate from C3 through C7. There are disc spacers throughout this length. Alignment is maintained. There is some spondylosis. Prevertebral soft tissues are unremarkable Impression: Previous anterior fixation appears intact No fracture or subluxation
== END 2020-06-04 08:37 | disposition home or self-care (01) ==
LOC: JP.ED 06:59
DX: M54.2 Cervicalgia (principal); J44.9 Chronic obstructive pulmonary disease, unspecified; F41.9 Anxiety disorder, unspecified; F31.9 Bipolar disorder, unspecified; K21.9 Gastro-esophageal reflux disease without esophagitis; E03.9 Hypothyroidism, unspecified; F17.210 Nicotine dependence, cigarettes, uncomplicated; Z88.4 Allergy status to anesthetic agent; Z88.6 Allergy status to analgesic agent; Z88.8 Allergy status to other drugs, medicaments and biological substances; Z91.040 Latex allergy status; Z98.890 Other specified postprocedural states; Z88.5 Allergy status to narcotic agent; Z91.048 Other nonmedicinal substance allergy status
CPT/HCPCS: 72040; 96374; 96375; 99283; J1170; J2060

== ENCOUNTER 2020-06-08 03:33 | Emergency (ER) | payer MEDICAID ==
[2020-06-08] MEDS ORDERED: fentaNYL 100 MCG/2 ML SDV IM ONE ×2 (03:58→04:35)
--- NOTE | 2020-06-08 04:01 | EDM.PDOC ---
ED HPI GENERAL MEDICAL PROBLEM - General Chief Complaint: Lower Extremity Injury/Pain Stated Complaint: FELL,INJURED R ANKLE Time Seen by Provider: 06/08/20 03:57 Source of Information: Reports: Patient, Family, RN Notes Reviewed History Limitations: Reports: No Limitations - History of Present Illness INITIAL COMMENTS - FREE TEXT/NARRATIVE: 44-year-old female presents emergency department a complaint of right ankle pain she states she stepped on the last step and had a twisting injury of her ankle and now has difficulty bearing weight ankle Pain Score (Numeric/FACES): 8 - Related Data Allergies Allergy/AdvReac Type Severity Reaction Status Date / Time lidocaine Allergy Severe Swelling Verified 06/08/20 03:48 codeine Allergy Intermediate Hives Verified 06/08/20 03:48 cortisone Allergy Intermediate Hives Verified 06/08/20 03:48 ketorolac [From Toradol] Allergy Intermediate Rash Verified 06/08/20 03:48 adhesive tape Allergy Mild Other Verified 06/08/20 03:48 gabapentin Allergy Mild Rash Verified 06/08/20 03:48 latex Allergy Mild Rash Verified 06/08/20 03:48 cyclobenzaprine Allergy Hives Verified 06/08/20 03:48 metoclopramide [From Reglan] AdvReac Intermediate Nausea Verified 06/08/20 03:48 meperidine [From Demerol] AdvReac Mild Nausea Verified 06/08/20 03:48 morphine AdvReac Mild Nausea Verified 06/08/20 03:48 venlafaxine [From Effexor] AdvReac Mild Diarrhea Verified 06/08/20 03:48 Home Meds: Home Meds Omeprazole 40 mg PO DAILY 11/22/18 [History] Albuterol [Ventolin HFA] 1 puff IH Q4HR PRN 07/21/19 [History] lamoTRIgine 200 mg PO DAILY 08/24/19 [History] QUEtiapine [SEROquel] 400 mg PO BEDTIME 11/13/19 [History] Ibuprofen 800 mg PO Q8HR PRN 01/07/20 [History] LORazepam [Lorazepam] 2 mg PO QID 01/07/20 [History] Levothyroxine Sodium 137 mcg PO ACBREAKFAST 01/07/20 [History] Acetaminophen [Tylenol Extra Strength] 1,000 mg PO Q8HR PRN 05/17/20 [History] Past Medical History HEENT History: Reports: Impaired Vision Respiratory History: Reports: COPD Gastrointestinal History: Reports: Cholelithiasis, Colon Polyp, GERD 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 s/p L 3rd finger pinning 04/08/19. Revision 05/17/19. Revision 06/17/19. Neurology states needs cervical fusion surgery. Cervical fusion surgery August 2019 Neurological History: Reports: Concussion, Seizure Other Neuro History: 1st seizure on 12/09/2019 Psychiatric History: Reports: ADHD, Addiction, Anxiety, Bipolar, Depression, Psych Hospitalization(s), Suicide Attempt Endocrine/Metabolic History: Reports: Hypothyroidism Hematologic History: Reports: None Immunologic History: Reports: None Oncologic (Cancer) History: Reports: Breast Dermatologic History: Reports: None - Infectious Disease History Infectious Disease History: Reports: Chicken Pox - Past Surgical History Head Surgeries/Procedures: Reports: None HEENT Surgical History: Reports: Tonsillectomy GI Surgical History: Reports: Appendectomy, Cholecystectomy, Colonoscopy Female Surgical History: Reports: Breast Reconstruction, Section, Hysterectomy, Mastectomy, Oophorectomy Musculoskeletal Surgical History: Reports: Other (See Below) Other Musculoskeletal Surgeries/Procedures:: LEFT MIDDLE FINGER SURGERY x3 Oncologic Surgical History: Reports: Mastectomy Other Oncologic Surgeries/Procedures: bilateral Social & Family History - Family History Family Medical History: Noncontributory - Tobacco Use Smoking Status *Q: Current Every Day Smoker Years of Tobacco use: 20 Packs/Tins Daily: 1 - Caffeine Use Caffeine Use: Reports: Coffee - Recreational Drug Use Recreational Drug Use: No Review of Systems - Review of Systems Review Of Systems: See Below Musculoskeletal: Reports: Joint Pain ED EXAM, GENERAL - Physical Exam Exam: See Below Free Text/Narrative:: Examination of the ankle I do not appreciate any erythema there is no edema noted however just the slightest touch exacerbates the pain difficult to perform any exam Exam Limited By: No Limitations General Appearance: Alert, Mild Distress ED TRAUMA EXTREMITY PROCEDURES - Splinting Right Lower Extremity Splint Site: Right ankle Pre-Procedure NV Status: Normal Post-Procedure NV Status: Normal Splint Material: Fiberglass Splint Design: Sugar Tong, Posterior Applied & Form Fitted By: Provider, Nurse Provider Post-Splint Application NV Check: NV Status Normal, Good Position Complications: No Course - Vital Signs Last Recorded V/S: Last Vital Signs Temp 97.8 F 06/08/20 03:45 Pulse 51 L 06/08/20 03:45 Resp 16 06/08/20 03:45 BP 116/79 06/08/20 03:45 Pulse Ox 97 06/08/20 03:45 - Orders/Labs/Meds Orders: Active Orders 24 hr Category Date Time Status Notify Provider Consults [RC] ASDIRECTED Care 06/08/20 04:37 Active Consult to Orthopedic Clinic [CONS] Routine Cons 06/08/20 04:37 Active Consult to Physician [CONS] Routine Cons 06/08/20 04:37 Ordered DME for Discharge [COMM] Routine Oth 06/08/20 04:41 Ordered Meds: Medications Discontinued Medications Generic Name Dose Route Start Last Admin Trade Name Freq PRN Reason Stop Dose Admin Fentanyl 25 mcg 06/08/20 03:58 06/08/20 04:05 Sublimaze IM 06/08/20 03:59 25 mcg ONETIME ONE Administration Fentanyl 100 mcg 06/08/20 04:35 06/08/20 04:38 Sublimaze IM 06/08/20 04:36 100 mcg ONETIME ONE Administration Departure - Departure Time of Disposition: 04:59 Disposition: Home, Self-Care 01 Condition: Fair Clinical Impression: Fx medial malleolus-closed Qualifiers: Encounter type: initial encounter Fracture alignment: nondisplaced Laterality: right Qualified Code(s): S82.54XA - Nondisplaced fracture of medial malleolus of right tibia, initial encounter for closed fracture - Discharge Information Instructions: Nondisplaced Fibular Ankle Fracture Treated With Immobilization, Adult Referrals: Anjali Branham DO [Primary Care Provider] - Forms: ED Department Discharge Additional Instructions: Use hydrocodone as needed for pain control, continue nonweightbearing with crutches, orthopedics will call you this morning for an appointment time Sepsis Event Note (ED) - Evaluation Sepsis Screening Result: No Definite Risk - Focused Exam Vital Signs: Vital Signs Temp Pulse Resp BP Pulse Ox 06/08/20 03:45 97.8 F 51 L 16 116/79 97 - My Orders Last 24 Hours: My Active Orders 06/08/20 04:37 Notify Provider Consults [RC] ASDIRECTED Consult to Orthopedic Clinic [CONS] Routine Consult to Physician [CONS] Routine 06/08/20 04:41 DME for Discharge [COMM] Routine - Assessment/Plan Last 24 Hours: My Active Orders 06/08/20 04:37 Notify Provider Consults [RC] ASDIRECTED Consult to Orthopedic Clinic [CONS] Routine Consult to Physician [CONS] Routine 06/08/20 04:41 DME for Discharge [COMM] Routine Plan: Assessment Right medial malleolus fracture nondisplaced closed Plan She is set up for orthopedics this week placed in a posterior sugar tong splint and crutches hydrocodone 5/325 1 tab p.o. 3 times daily as needed provided for pain control
--- NOTE | 2020-06-08 04:34 | CRLCR ---
INDICATION: Twisting ankle injury from fall TECHNIQUE: Ankle radiograph 3 views right COMPARISON: None FINDINGS: Bone: There is a nondisplaced transverse fracture present in the medial malleolus. On the lateral exam, there is suspected cortical disruption in the posterior tibial malleolus. Joint: The ankle mortise joint and the visualized hindfoot joints are unremarkable in appearance. No significant ankle effusion is seen. Soft tissue: Mild lateral and medial soft tissue swelling is noted. No radiopaque foreign bodies are seen. IMPRESSIONS: 1. There is a nondisplaced transverse fracture present in the medial malleolus. 2. On the lateral exam, there is suspected cortical disruption in the posterior tibial malleolus. Correlation with physical exam for focal tenderness in this region is recommended to exclude an acute fracture. Dictated by Lalito Linder MD @ 06/08/2020 4:31:55 AM Dictated by: Lalito Linder MD @ 06/08/2020 04:31:57 (Electronically Signed)
== END 2020-06-08 05:32 | disposition home or self-care (01) ==
LOC: JP.ED 03:33
DX: S82.54XA Nondisplaced fracture of medial malleolus of right tibia, initial encounter for closed fracture (principal); J44.9 Chronic obstructive pulmonary disease, unspecified; K21.9 Gastro-esophageal reflux disease without esophagitis; F41.9 Anxiety disorder, unspecified; F31.9 Bipolar disorder, unspecified; E03.9 Hypothyroidism, unspecified; Z98.890 Other specified postprocedural states; Z90.710 Acquired absence of both cervix and uterus; Z90.722 Acquired absence of ovaries, bilateral; F17.210 Nicotine dependence, cigarettes, uncomplicated; Z88.4 Allergy status to anesthetic agent; Z88.5 Allergy status to narcotic agent; Z88.8 Allergy status to other drugs, medicaments and biological substances; Z91.048 Other nonmedicinal substance allergy status; Z91.040 Latex allergy status; Z79.899 Other long term (current) drug therapy; X50.1XXA Overexertion from prolonged static or awkward postures, initial encounter
CPT/HCPCS: 29515; 73610; 96372; 99283; J3010

== ENCOUNTER 2020-06-24 20:52 | Emergency (ER) | payer MEDICAID ==
[2020-06-24] MEDS ORDERED: fentaNYL 100 MCG/2 ML SDV IM ONE (21:27)
--- NOTE | 2020-06-24 21:49 | EDM.PDOC ---
ED HPI GENERAL MEDICAL PROBLEM - General Chief Complaint: Wound Recheck Stated Complaint: CAST PROBLEMS Time Seen by Provider: 06/24/20 21:25 Source of Information: Reports: Patient History Limitations: Reports: No Limitations - History of Present Illness INITIAL COMMENTS - FREE TEXT/NARRATIVE: 44-year-old female in having difficulties with her right leg cast, having a lot of pain and wants pain control. She is out of Percocet. She is not using her crutches or her scooter because her "apartment is too small". She looks filthy, she says she is unable to shower or take a bath. Also complains of the cast is "rubbing". Onset: Unknown/Unsure Associated Symptoms: Reports: No Other Symptoms Right Leg Pain Score (Numeric/FACES): 8 - Related Data Allergies Allergy/AdvReac Type Severity Reaction Status Date / Time lidocaine Allergy Severe Swelling Verified 06/24/20 20:59 codeine Allergy Intermediate Hives Verified 06/24/20 20:59 cortisone Allergy Intermediate Hives Verified 06/24/20 20:59 ketorolac [From Toradol] Allergy Intermediate Rash Verified 06/24/20 20:59 adhesive tape Allergy Mild Other Verified 06/24/20 20:59 gabapentin Allergy Mild Rash Verified 06/24/20 20:59 latex Allergy Mild Rash Verified 06/24/20 20:59 cyclobenzaprine Allergy Hives Verified 06/24/20 20:59 metoclopramide [From Reglan] AdvReac Intermediate Nausea Verified 06/24/20 20:59 meperidine [From Demerol] AdvReac Mild Nausea Verified 06/24/20 20:59 morphine AdvReac Mild Nausea Verified 06/24/20 20:59 venlafaxine [From Effexor] AdvReac Mild Diarrhea Verified 06/24/20 20:59 Home Meds: Home Meds Omeprazole 40 mg PO DAILY 11/22/18 [History] Albuterol [Ventolin HFA] 1 puff IH Q4HR PRN 07/21/19 [History] lamoTRIgine 200 mg PO DAILY 08/24/19 [History] QUEtiapine [SEROquel] 400 mg PO BEDTIME 11/13/19 [History] Ibuprofen 800 mg PO Q8HR PRN 01/07/20 [History] LORazepam [Lorazepam] 2 mg PO QID 01/07/20 [History] Levothyroxine Sodium 137 mcg PO ACBREAKFAST 01/07/20 [History] Acetaminophen [Tylenol Extra Strength] 1,000 mg PO Q8HR PRN 05/17/20 [History] oxyCODONE HCl/Acetaminophen [Percocet 5-325 mg Tablet] 1 - 2 each PO Q6HR PRN #48 tablet 06/16/20 [Rx] Past Medical History - Past Health History Medical/Surgical History: Denies Medical/Surgical History HEENT History: Reports: Impaired Vision Cardiovascular History: Reports: None Respiratory History: Reports: COPD Gastrointestinal History: Reports: Cholelithiasis, Colon Polyp, GERD Genitourinary History: Reports: None 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 s/p L 3rd finger pinning 04/08/19. Revision 05/17/19. Revision 06/17/19. Neurology states needs cervical fusion surgery. Cervical fusion surgery August 2019. right ankle FX Neurological History: Reports: Concussion, Seizure Other Neuro History: 1st seizure on 12/09/2019 Psychiatric History: Reports: ADHD, Addiction, Anxiety, Bipolar, Depression, Psych Hospitalization(s), Suicide Attempt Endocrine/Metabolic History: Reports: Hypothyroidism Hematologic History: Reports: None Immunologic History: Reports: None Oncologic (Cancer) History: Reports: Breast Dermatologic History: Reports: None - Infectious Disease History Infectious Disease History: Reports: Chicken Pox - Past Surgical History Head Surgeries/Procedures: Reports: None HEENT Surgical History: Reports: Tonsillectomy GI Surgical History: Reports: Appendectomy, Cholecystectomy, Colonoscopy Female Surgical History: Reports: Breast Reconstruction, Section, Hysterectomy, Mastectomy, Oophorectomy Musculoskeletal Surgical History: Reports: Other (See Below) Other Musculoskeletal Surgeries/Procedures:: LEFT MIDDLE FINGER SURGERY x3 Oncologic Surgical History: Reports: Mastectomy Other Oncologic Surgeries/Procedures: bilateral Social & Family History - Family History Family Medical History: Noncontributory - Tobacco Use Smoking Status *Q: Current Every Day Smoker Years of Tobacco use: 20 Packs/Tins Daily: 2 - Caffeine Use Caffeine Use: Reports: Coffee - Recreational Drug Use Recreational Drug Use: No ED ROS GENERAL - Review of Systems Review Of Systems: See Below Constitutional: Denies: Fever, Chills, Decreased Appetite Respiratory: Denies: Shortness of Breath Cardiovascular: Denies: Chest Pain GI/Abdominal: Denies: Nausea, Vomiting Skin: Reports: Other (Feels like the skin is rubbing on the edge of the cast). Denies: Bruising ED EXAM, GENERAL - Physical Exam Exam: See Below Exam Limited By: No Limitations General Appearance: Alert, No Apparent Distress, Other (Appears very unkempt) Head: Atraumatic Respiratory/Chest: No Respiratory Distress Extremities: Other (A cast is in place on the right lower extremity. There is a little bit of erythema on the top of the foot at the edge of the cast but no broken skin. Her feet and hands are very dirty. 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 She was given 50 mg of IM fentanyl but she will have to get more pain control from Dr. Castro tomorrow as I feel she needs to see him anyway to check the cast. I am having a hard time understanding why she cannot use her crutches or scooter because of the "size of her apartment". She will have to discuss this with him as well. Departure - Departure Time of Disposition: 21:55 Disposition: Home, Self-Care 01 Clinical Impression: Fibula fracture Qualifiers: Encounter type: subsequent encounter Fibula location: shaft Fracture type: closed Fracture morphology: oblique Fracture alignment: nondisplaced Laterality: right - Discharge Information Instructions: Cast or Splint Care, Adult, [id number] Referrals: Anjali Branham DO [Primary Care Provider] - Forms: ED Department Discharge Care Plan Goals: Recheck with Dr. Castro tomorrow, call in the morning for a time to come in. Elevate the foot tonight. Sepsis Event Note (ED) - Evaluation Sepsis Screening Result: No Definite Risk - Focused Exam Vital Signs: Vital Signs Temp Pulse Resp BP Pulse Ox 06/24/20 21:10 98.5 F 87 16 95/65 97
== END 2020-06-24 22:04 | disposition home or self-care (01) ==
LOC: JP.ED 20:52
DX: S82.431A Displaced oblique fracture of shaft of right fibula, initial encounter for closed fracture (principal); J44.9 Chronic obstructive pulmonary disease, unspecified; K21.9 Gastro-esophageal reflux disease without esophagitis; F31.9 Bipolar disorder, unspecified; F41.9 Anxiety disorder, unspecified; E03.9 Hypothyroidism, unspecified; Z88.5 Allergy status to narcotic agent; Z88.4 Allergy status to anesthetic agent; Z91.048 Other nonmedicinal substance allergy status; Z91.040 Latex allergy status; Z88.8 Allergy status to other drugs, medicaments and biological substances; Z88.6 Allergy status to analgesic agent; Z79.899 Other long term (current) drug therapy; X58.XXXA Exposure to other specified factors, initial encounter
CPT/HCPCS: 96372; 99283; J3010

== ENCOUNTER 2020-06-28 15:05 | Emergency (ER) | payer MEDICAID ==
[2020-06-28] MEDS ORDERED: Acetaminophen/HYDROcodone 325-5 MG Tab PO ONE (16:08)
--- NOTE | 2020-06-28 16:43 | CRLCR ---
INDICATION: Pain. Injured ankle while in cast. COMPARISON: 06/08/2020. TECHNIQUE: Right ankle 3 views. FINDINGS: Overlying cast material obscures fine bone detail. Nondisplaced medial malleolus fracture is again noted. Minimally displaced posterior malleolus fracture is similar to prior. No new fracture is identified. Talar dome and tibial plafond are intact. Achilles insertion enthesophyte is again noted. Dictated by Irving Rider MD @ Jun 28 2020 4:38PM Signed by Dr. Irving Rider @ Jun 28 2020 4:42PM
--- NOTE | 2020-06-28 16:46 | EDM.PDOC ---
ED HPI GENERAL MEDICAL PROBLEM - General Chief Complaint: Lower Extremity Injury/Pain Stated Complaint: FELL LOWER PAIN Time Seen by Provider: 06/28/20 15:36 Source of Information: Reports: Patient History Limitations: Reports: No Limitations - History of Present Illness INITIAL COMMENTS - FREE TEXT/NARRATIVE: Patient dropped a box of books onto her left ankle. She has a cast her left ankle from an ankle fracture. She complains of pain. She also reports sores in the tops of her lateral 3 toes. She denies chills or fever or systemic symptoms - Related Data Allergies Allergy/AdvReac Type Severity Reaction Status Date / Time lidocaine Allergy Severe Swelling Verified 06/28/20 15:46 codeine Allergy Intermediate Hives Verified 06/28/20 15:46 cortisone Allergy Intermediate Hives Verified 06/28/20 15:46 ketorolac [From Toradol] Allergy Intermediate Rash Verified 06/28/20 15:46 adhesive tape Allergy Mild Other Verified 06/28/20 15:46 gabapentin Allergy Mild Rash Verified 06/28/20 15:46 latex Allergy Mild Rash Verified 06/28/20 15:46 cyclobenzaprine Allergy Hives Verified 06/28/20 15:46 metoclopramide [From Reglan] AdvReac Intermediate Nausea Verified 06/28/20 15:46 meperidine [From Demerol] AdvReac Mild Nausea Verified 06/28/20 15:46 morphine AdvReac Mild Nausea Verified 06/28/20 15:46 venlafaxine [From Effexor] AdvReac Mild Diarrhea Verified 06/28/20 15:46 Home Meds: Home Meds Omeprazole 40 mg PO DAILY 11/22/18 [History] Albuterol [Ventolin HFA] 1 puff IH Q4HR PRN 07/21/19 [History] lamoTRIgine 200 mg PO DAILY 08/24/19 [History] QUEtiapine [SEROquel] 400 mg PO BEDTIME 11/13/19 [History] Ibuprofen 800 mg PO Q8HR PRN 01/07/20 [History] LORazepam [Lorazepam] 2 mg PO QID 01/07/20 [History] Levothyroxine Sodium 137 mcg PO ACBREAKFAST 01/07/20 [History] Acetaminophen [Tylenol Extra Strength] 1,000 mg PO Q8HR PRN 05/17/20 [History] buPROPion HCL [Bupropion Xl] 1 tab PO DAILY 06/28/20 [History] Past Medical History - Past Health History Medical/Surgical History: Denies Medical/Surgical History HEENT History: Reports: Impaired Vision Cardiovascular History: Reports: None Respiratory History: Reports: COPD Gastrointestinal History: Reports: Cholelithiasis, Colon Polyp, GERD Genitourinary History: Reports: None 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 s/p L 3rd finger pinning 04/08/19. Revision 05/17/19. Revision 06/17/19. Neurology states needs cervical fusion surgery. Cervical fusion surgery August 2019. right ankle FX Neurological History: Reports: Concussion, Seizure Other Neuro History: 1st seizure on 12/09/2019 Psychiatric History: Reports: ADHD, Addiction, Anxiety, Bipolar, Depression, Psych Hospitalization(s), Suicide Attempt Endocrine/Metabolic History: Reports: Hypothyroidism Hematologic History: Reports: None Immunologic History: Reports: None Oncologic (Cancer) History: Reports: Breast Dermatologic History: Reports: None - Infectious Disease History Infectious Disease History: Reports: Chicken Pox - Past Surgical History Head Surgeries/Procedures: Reports: None HEENT Surgical History: Reports: Tonsillectomy GI Surgical History: Reports: Appendectomy, Cholecystectomy, Colonoscopy Female Surgical History: Reports: Breast Reconstruction, Section, Hysterectomy, Mastectomy, Oophorectomy Musculoskeletal Surgical History: Reports: Other (See Below) Other Musculoskeletal Surgeries/Procedures:: LEFT MIDDLE FINGER SURGERY x3 Oncologic Surgical History: Reports: Mastectomy Other Oncologic Surgeries/Procedures: bilateral Social & Family History - Family History Family Medical History: Noncontributory - Tobacco Use Smoking Status *Q: Current Every Day Smoker Years of Tobacco use: 20 Packs/Tins Daily: 1 - Caffeine Use Caffeine Use: Reports: Coffee Review of Systems - Review of Systems Review Of Systems: See Below Constitutional: Reports: No Symptoms, Chills, Diaphoresis Musculoskeletal: Reports: Other (She has a rigid cast on the left ankle. There is no softness in the cast. No sign of any injury to the cast.) Skin: Reports: Other (She has scabbed sores on the dorsum of the lateral 3 toes. There is some surrounding erythema. Her toes are warm. There is no numbness. Color is normal.) ED EXAM, GENERAL - Physical Exam Exam: See Below Exam Limited By: No Limitations General Appearance: Alert, WD/WN, Mild Distress Extremities: Other (There is no softness of the cast. There is no injury to the cast. She is warm toes. Color is good. She has a few scabbed lesions with surrounding erythema lateral 3 toes.) Course - Vital Signs Text/Narrative:: This patient had the box on her left ankle that was casted from a recent fracture. She complained of pain. She also has sores on the top of her toes. X-ray today shows no new injuries. She has a normal neurovascular exam. She may have a secondary infection of the skin of the toes. She was started on Kefl ex 500 mg 3 times daily for 7 days. She will take Tylenol or ibuprofen as needed for pain. She will follow-up with her orthopedist in the near future. Last Recorded V/S: Last Vital Signs Temp 36.4 C 06/28/20 15:54 Pulse 69 06/28/20 15:54 Resp 14 06/28/20 15:54 BP 120/80 06/28/20 15:54 Pulse Ox 98 06/28/20 15:54 - Orders/Labs/Meds Meds: Medications Discontinued Medications Generic Name Dose Route Start Last Admin Trade Name Humberto PRN Reason Stop Dose Admin Hydrocodone Bitart/Acetaminophen 2 tab 06/28/20 16:08 06/28/20 16:16 [place] 325-5 Mg PO 06/28/20 16:09 2 tab ONETIME ONE Administration Departure - Departure Time of Disposition: 16:55 Disposition: Home, Self-Care 01 Condition: Good Clinical Impression: Ankle pain, left Clinical Impression: (Ruled Out): Abdominal pain - Discharge Information *PRESCRIPTION DRUG MONITORING PROGRAM REVIEWED*: No *COPY OF PRESCRIPTION DRUG MONITORING REPORT IN PATIENT ELSA: No Referrals: Anjali Branham DO [Primary Care Provider] - Forms: ED Department Discharge Additional Instructions: Elevate your left ankle. Try Tylenol or ibuprofen as needed for pain. Follow- up with Dr. Cota in the near future. Return to the ER as needed. Sepsis Event Note (ED) - Evaluation Sepsis Screening Result: No Definite Risk - Focused Exam Vital Signs: Vital Signs Temp Pulse Resp BP Pulse Ox 06/28/20 15:54 36.4 C 69 14 120/80 98
== END 2020-06-28 17:20 | disposition home or self-care (01) ==
LOC: JP.ED 15:05
DX: S82.54XD Nondisplaced fracture of medial malleolus of right tibia, subsequent encounter for closed fracture with routine healing (principal); M25.571 Pain in right ankle and joints of right foot
CPT/HCPCS: 73610; 99283; A9270

== ENCOUNTER 2020-07-27 19:47 | Emergency (ER) | payer MEDICAID ==
[2020-07-27] MEDS ORDERED: LORazepam 2 MG/ML SDV IVPUSH ONE (20:34)
--- NOTE | 2020-07-27 20:37 | EDM.PDOC ---
ED HPI GENERAL MEDICAL PROBLEM - General Chief Complaint: Gastrointestinal Problem Stated Complaint: MEDICAL [facility]IA [facility] Time Seen by Provider: 07/27/20 20:27 Source of Information: Reports: Patient, EMS, RN Notes Reviewed History Limitations: Reports: No Limitations - History of Present Illness INITIAL COMMENTS - FREE TEXT/NARRATIVE: 44-year-old female presents emergency department today via EMS services sudden onset nausea vomiting and chills, she states it started earlier today and has progressively gotten worse she was concerned she may have made some poor food at home last night. She denies any large gathering or any exposures that she is aware of for COVID. She denies taking anything other than her regular medications. She has not had any fevers at home no shortness of breath or chest pain no abdominal pain other than the crampy feeling from continued emesis. Head Pain Score (Numeric/FACES): 10 - Related Data Allergies Allergy/AdvReac Type Severity Reaction Status Date / Time lidocaine Allergy Severe Swelling Verified 07/27/20 20:32 codeine Allergy Intermediate Hives Verified 07/27/20 20:32 cortisone Allergy Intermediate Hives Verified 07/27/20 20:32 ketorolac [From Toradol] Allergy Intermediate Rash Verified 07/27/20 20:32 adhesive tape Allergy Mild Other Verified 07/27/20 20:32 gabapentin Allergy Mild Rash Verified 07/27/20 20:32 latex Allergy Mild Rash Verified 07/27/20 20:32 cyclobenzaprine Allergy Hives Verified 07/27/20 20:32 fentanyl Allergy Hallucinati Verified 07/27/20 20:32 ons metoclopramide [From Reglan] AdvReac Intermediate Nausea Verified 07/27/20 20:32 meperidine [From Demerol] AdvReac Mild Nausea Verified 07/27/20 20:32 morphine AdvReac Mild Nausea Verified 07/27/20 20:32 venlafaxine [From Effexor] AdvReac Mild Diarrhea Verified 07/27/20 20:32 Home Meds: Home Meds Omeprazole 40 mg PO BID 11/22/18 [History] Albuterol [Ventolin HFA] 1 puff IH Q4HR PRN 07/21/19 [History] lamoTRIgine 400 mg PO DAILY 08/24/19 [History] QUEtiapine [SEROquel] 400 mg PO BEDTIME 11/13/19 [History] Ibuprofen 800 mg PO Q8HR PRN 01/07/20 [History] LORazepam [Lorazepam] 2 mg PO QID 01/07/20 [History] Levothyroxine Sodium 137 mcg PO ACBREAKFAST 01/07/20 [History] oxyCODONE HCl/Acetaminophen [Percocet 5-325 mg Tablet] 1 - 2 each PO Q8HR PRN 7 Days #40 tablet 06/30/20 [Rx] Past Medical History HEENT History: Reports: Impaired Vision Respiratory History: Reports: COPD Gastrointestinal History: Reports: Cholelithiasis, Colon Polyp, GERD 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 s/p L 3rd finger pinning 04/08/19. Revision 05/17/19. Revision 06/17/19. Neurology states needs cervical fusion surgery. Cervical fusion surgery August 2019. right ankle FX 06/08/20 Neurological History: Reports: Concussion, Seizure Other Neuro History: 1st seizure on 12/09/2019 Psychiatric History: Reports: ADHD, Addiction, Anxiety, Bipolar, Depression, Psych Hospitalization(s), PTSD, Suicide Attempt, Other (See Below) Other Psychiatric History: drug seeking behavior, deficient self management of pain, borderline personality disorder Endocrine/Metabolic History: Reports: Hypothyroidism Oncologic (Cancer) History: Reports: Breast, Uterine Other Oncologic History: thinks she had uterine cancer but not sure - Infectious Disease History Infectious Disease History: Reports: Chicken Pox, MRSA - Past Surgical History Head Surgeries/Procedures: Reports: None HEENT Surgical History: Reports: Tonsillectomy GI Surgical History: Reports: Appendectomy, Cholecystectomy, Colonoscopy, Polypectomy Female Surgical History: Reports: Breast Reconstruction, Section, Hy sterectomy, Mastectomy, Oophorectomy Neurological Surgical History: Reports: C-Spine Oncologic Surgical History: Reports: Mastectomy Other Oncologic Surgeries/Procedures: bilateral Social & Family History - Family History Family Medical History: Noncontributory - Tobacco Use Smoking Status *Q: Current Every Day Smoker Years of Tobacco use: 30 Packs/Tins Daily: 2 - Caffeine Use Caffeine Use: Reports: Coffee, Energy Drinks, Soda, Tea - Recreational Drug Use Recreational Drug Use: Yes Drug Use in Last 12 Months: Yes Recreational Drug Type: Reports: Marijuana/Hashish Recreational Drug Use Frequency: Daily ED ROS GENERAL - Review of Systems Review Of Systems: See Below Constitutional: Reports: Chills, Weakness. Denies: Fever HEENT: Reports: No Symptoms Respiratory: Reports: No Symptoms Cardiovascular: Reports: No Symptoms GI/Abdominal: Reports: Nausea, Vomiting. Denies: Abdominal Pain : Reports: No Symptoms ED EXAM, GI/ABD - Physical Exam Exam: See Below Exam Limited By: No Limitations General Appearance: Alert, Mild Distress Eyes: Bilateral: Normal Appearance (perrla), EOMI Ears: Normal External Exam, Normal Canal, Hearing Grossly Normal, Normal TMs Nose: Normal Inspection, Normal Mucosa, No Blood Throat/Mouth: Normal Inspection, Normal Lips, Normal Teeth, Normal Gums, Normal Oropharynx, Normal Voice, No Airway Compromise Head: Atraumatic, Normocephalic Neck: Normal Inspection, Supple, Non-Tender, Full Range of Motion Respiratory/Chest: No Respiratory Distress, Lungs Clear, Normal Breath Sounds, No Accessory Muscle Use, Chest Non-Tender Cardiovascular: Regular Rate, Rhythm, No Murmur GI/Abdominal Exam: Normal Bowel Sounds, Soft, Non-Tender Course - Vital Signs Last Recorded V/S: Last Vital Signs Temp 37.6 F L 07/27/20 22:35 Pulse 62 07/27/20 22:35 Resp 15 07/27/20 20:59 BP 115/68 07/27/20 22:35 Pulse Ox 99 07/27/20 22:35 - Orders/Labs/Meds Orders: Active Orders 24 hr Category Date Time Status Vital Signs [RC] Q1H Care 07/27/20 20:32 Active CULTURE BLOOD [BC] Urgent Lab 07/27/20 20:40 Received CULTURE BLOOD [BC] Urgent Lab 07/27/20 20:51 Received Lactated Ringers [Ringers, Lactated] 1,000 ml Med 07/27/20 20:45 Active IV ASDIRECTED Blood Culture x2 Reflex Set [OM.PC] Urgent Oth 07/27/20 20:32 Ordered Medication Orders Lactated Ringer's (Ringers, Lactated) 1,000 mls @ 999 mls/hr IV ASDIRECTED MARISABEL Last Admin: 07/27/20 20:58 Dose: 999 mls/hr Documented by: LIZBETH Labs: Laboratory Tests 07/27/20 07/27/20 07/27/20 Range/Units 20:40 20:40 20:40 WBC 9.8 (4.5-11.0) K/uL RBC 5.00 (3.30-5.50) M/uL Hgb 15.2 H (12.0-15.0) g/dL Hct 45.8 (36.0-48.0) % MCV 92 (80-98) fL MCH 30 (27-31) pg MCHC 33 (32-36) % Plt Count 336 (150-400) K/uL Neut % (Auto) 82 H (36-66) % Lymph % (Auto) 12 L (24-44) % [place] % (Auto) 6 (2-6) % Eos % (Auto) 0 L (2-4) % Baso % (Auto) 0 (0-1) % Sodium 137 L (140-148) mmol/L Potassium 4.3 (3.6-5.2) mmol/L Chloride 100 (100-108) mmol/L Carbon Dioxide 28 (21-32) mmol/L Anion Gap 13.3 (5.0-14.0) mmol/L BUN 14 (7-18) mg/dL Creatinine 1.1 H (0.6-1.0) mg/dL Est Cr Clr Drug Dosing 58.12 mL/min Estimated GFR (MDRD) 54 L (>60) Glucose 118 H (74-106) mg/dL Lactic Acid 1.0 (0.4-2.0) mmol/L Calcium 9.7 (8.5-10.1) mg/dL Total Bilirubin 0.6 (0.2-1.0) mg/dL AST 29 (15-37) U/L ALT 43 (12-78) U/L Alkaline Phosphatase 112 (46-116) U/L C-Reactive Protein < 0.05 (0.0-0.3) mg/dL Total Protein 7.6 (6.4-8.2) g/dL Albumin 3.8 (3.4-5.0) g/dL Globulin 3.8 H (2.3-3.5) g/dL Albumin/Globulin Ratio 1.0 L (1.2-2.2) Procalcitonin ng/mL Urine Color (YELLOW) Urine Appearance (CLEAR) Urine pH (5.0-8.0) Ur Specific [place] (1.008-1.030) Urine Protein (NEGATIVE) mg/dL Urine Glucose (UA) (NEGATIVE) mg/dL Urine Ketones (NEGATIVE) mg/dL Urine Occult Blood (NEGATIVE) Urine Nitrite (NEGATIVE) Urine Bilirubin (NEGATIVE) Urine Urobilinogen (0.2-1.0) EU/dL Ur Leukocyte Esterase (NEGATIVE) Urine RBC (0-5) Urine WBC (0-5) Ur Epithelial Cells Amorphous Sediment Urine Bacteria Urine Mucus Urine Opiates Screen (NEGATIVE) Ur Oxycodone Screen (NEGATIVE) Urine Methadone Screen (NEGATIVE) Ur Propoxyphene Screen (NEGATIVE) Ur Barbiturates Screen (NEGATIVE) Ur Tricyclics Screen (NEGATIVE) Ur Phencyclidine Scrn (NEGATIVE) Ur Amphetamine Screen (NEGATIVE) U Methamphetamines Scrn (NEGATIVE) Urine MDMA Screen (NEGATIVE) U Benzodiazepines Scrn (NEGATIVE) U Cocaine Metab Screen (NEGATIVE) U Marijuana (THC) Screen (NEGATIVE) 07/27/20 07/27/20 07/27/20 Range/Units 20:40 22:11 22:24 WBC (4.5-11.0) K/uL RBC (3.30-5.50) M/uL Hgb (12.0-15.0) g/dL Hct (36.0-48.0) % MCV (80-98) fL MCH (27-31) pg MCHC (32-36) % Plt Count (150-400) K/uL Neut % (Auto) (36-66) % Lymph % (Auto) (24-44) % [place] % (Auto) (2-6) % Eos % (Auto) (2-4) % Baso % (Auto) (0-1) % Sodium (140-148) mmol/L Potassium (3.6-5.2) mmol/L Chloride (100-108) mmol/L Carbon Dioxide (21-32) mmol/L Anion Gap (5.0-14.0) mmol/L BUN (7-18) mg/dL Creatinine (0.6-1.0) mg/dL Est Cr Clr Drug Dosing mL/min Estimated GFR (MDRD) (>60) Glucose (74-106) mg/dL Lactic Acid (0.4-2.0) mmol/L Calcium (8.5-10.1) mg/dL Total Bilirubin (0.2-1.0) mg/dL AST (15-37) U/L ALT (12-78) U/L Alkaline Phosphatase (46-116) U/L C-Reactive Protein (0.0-0.3) mg/dL Total Protein (6.4-8.2) g/dL Albumin (3.4-5.0) g/dL Globulin (2.3-3.5) g/dL Albumin/Globulin Ratio (1.2-2.2) Procalcitonin < 0.05 ng/mL Urine Color Yellow (YELLOW) Urine Appearance Slightly cloudy A (CLEAR) Urine pH 6.5 (5.0-8.0) Ur Specific [place] >= 1.030 (1.008-1.030) Urine Protein 30 H (NEGATIVE) mg/dL Urine Glucose (UA) Negative (NEGATIVE) mg/dL Urine Ketones Negative (NEGATIVE) mg/dL Urine Occult Blood Negative (NEGATIVE) Urine Nitrite Negative (NEGATIVE) Urine Bilirubin Negative (NEGATIVE) Urine Urobilinogen 0.2 (0.2-1.0) EU/dL Ur Leukocyte Esterase Negative (NEGATIVE) Urine RBC 0-5 (0-5) Urine WBC 0-5 (0-5) Ur Epithelial Cells Few Amorphous Sediment Not seen Urine Bacteria Rare Urine Mucus Few Urine Opiates Screen Negative (NEGATIVE) Ur Oxycodone Screen Negative (NEGATIVE) Urine Methadone Screen Negative (NEGATIVE) Ur Propoxyphene Screen Negative (NEGATIVE) Ur Barbiturates Screen Negative (NEGATIVE) Ur Tricyclics Screen Presumptive positive H (NEGATIVE) Ur Phencyclidine Scrn Negative (NEGATIVE) Ur Amphetamine Screen Negative (NEGATIVE) U Methamphetamines Scrn Negative (NEGATIVE) Urine MDMA Screen Negative (NEGATIVE) U Benzodiazepines Scrn Presumptive positive H (NEGATIVE) U Cocaine Metab Screen Negative (NEGATIVE) U Marijuana (THC) Screen Negative (NEGATIVE) Meds: Medications Generic Name Dose Route Start Last Admin Trade Name Freq PRN Reason Stop Dose Admin Lactated Ringer's 1,000 mls @ 999 mls/hr 07/27/20 20:45 07/27/20 20:58 Ringers, Lactated IV 999 mls/hr ASDIRECTED MARISABEL Administration Discontinued Medications Generic Name Dose Route Start Last Admin Trade Name Freq PRN Reason Stop Dose Admin Lorazepam 1 mg 07/27/20 20:34 07/27/20 20:58 Ativan IVPUSH 07/27/20 20:35 1 mg ONETIME ONE Administration Departure - Departure Time of Disposition: 22:51 Disposition: Home, Self-Care 01 Condition: Fair Clinical Impression: Panic attack - Discharge Information Instructions: Panic Attack, [id number] Referrals: Anjali Branham DO [Primary Care Provider] - Forms: ED Department Discharge Additional Instructions: use lorazapam as needed. Please followup with your primary care provider in 3-5 days if not better, please call return to the emergency department with worsening of symptoms. Sepsis Event Note (ED) - Evaluation Sepsis Screening Result: No Definite Risk - Focused Exam Vital Signs: Vital Signs Temp Pulse Resp BP Pulse Ox 07/27/20 22:35 37.6 F L 62 115/68 99 07/27/20 21:21 97.4 F 07/27/20 20:59 96.1 F L 60 15 134/91 H 98 07/27/20 20:07 94.9 F L 57 L 17 122/72 97 07/27/20 20:06 94.9 F L 57 L 17 122/72 97 - My Orders Last 24 Hours: My Active Orders 07/27/20 20:32 Vital Signs [RC] Q1H Blood Culture x2 Reflex Set [OM.PC] Urgent 07/27/20 20:40 CULTURE BLOOD [BC] Urgent 07/27/20 20:45 Lactated Ringers [Ringers, Lactated] 1,000 ml IV ASDIRECTED 07/27/20 20:51 CULTURE BLOOD [BC] Urgent - Assessment/Plan Last 24 Hours: My Active Orders 07/27/20 20:32 Vital Signs [RC] Q1H Blood Culture x2 Reflex Set [OM.PC] Urgent 07/27/20 20:40 CULTURE BLOOD [BC] Urgent 07/27/20 20:45 Lactated Ringers [Ringers, Lactated] 1,000 ml IV ASDIRECTED 07/27/20 20:51 CULTURE BLOOD [BC] Urgent Plan: Assessment Acuity = acute Site and laterality = panic attack Etiology = NORA Manifestations = n/V Location of injury = Home Lab values = cbc,cmp,us unremarkable Plan ativan 1mg po bid prn #10, f/u pcp this week This note was dictated using [employer] recognition software please call with any questions on syntax or grammar.
[2020-07-27] MEDS ORDERED: Lactated Ringers 1,000 ML IV SCH (20:45)
== END 2020-07-27 23:06 | disposition home or self-care (01) ==
LOC: JP.ED 19:47
DX: F41.0 Panic disorder [episodic paroxysmal anxiety] (principal); K21.9 Gastro-esophageal reflux disease without esophagitis; J44.9 Chronic obstructive pulmonary disease, unspecified; R56.9 Unspecified convulsions; F31.9 Bipolar disorder, unspecified; F41.9 Anxiety disorder, unspecified; E03.9 Hypothyroidism, unspecified; F17.210 Nicotine dependence, cigarettes, uncomplicated; Z88.4 Allergy status to anesthetic agent; Z88.5 Allergy status to narcotic agent; Z88.6 Allergy status to analgesic agent; Z91.040 Latex allergy status; Z88.8 Allergy status to other drugs, medicaments and biological substances; Z79.899 Other long term (current) drug therapy
CPT/HCPCS: 36415; 80053; 80305; 81001; 83605; 84145; 85025; 86140; 87040; 96361; 96374; 99284; J2060; J7120

== ENCOUNTER 2021-01-29 17:15 | Emergency (ER) | payer OTHER, MEDICAID ==
[2021-01-29] MEDS ORDERED: HYDROmorphone 1 MG/ML Syringe IM ONE (18:15)
[2021-01-29] MEDS ORDERED: Methocarbamol 500 MG Tab PO ONE (18:20)
[2021-01-29] MEDS ORDERED: Promethazine 25 MG Tab PO STA (19:10)
--- NOTE | 2021-01-29 19:24 | EDM.PDOC ---
ED HPI GENERAL MEDICAL PROBLEM - General Chief Complaint: Neck Problem Stated Complaint: FELL AT WORK/INJURED NECK/FACE Time Seen by Provider: 01/29/21 18:13 Source of Information: Reports: Patient History Limitations: Reports: No Limitations - History of Present Illness INITIAL COMMENTS - FREE TEXT/NARRATIVE: Is a 45-year-old female presenting to the ED with acute neck pain. Patient has a history significant for previous cervical spine fusion done through an anterior approach with several plates and screws. She was in her usual state of health at work today carrying a palate of heavy items. She bent over to set the palate down and unfortunately her hand was caught in the palate pulling her forward causing her to slam her chin into the palate and on the ground. This resulted in the neck becoming extended causing acute onset of neck pain and spasm. The patient denies any new symptoms except for tingling in the fingertips bilaterally. She had no loss of consciousness. She has some mild jaw pain but no malcoaptation of the jaw. Biggest concern is the cervical fusion and the severe bilateral cervical paraspinal muscle spasm. She rates her pain a 9 out of 10. No difficulty with swallowing or breathing. Neck Pain Score (Numeric/FACES): 6 - Related Data Allergies Allergy/AdvReac Type Severity Reaction Status Date / Time lidocaine Allergy Severe Swelling Verified 01/29/21 17:34 codeine Allergy Intermediate Hives Verified 01/29/21 17:34 cortisone Allergy Intermediate Hives Verified 01/29/21 17:34 ketorolac [From Toradol] Allergy Intermediate Rash Verified 01/29/21 17:34 adhesive tape Allergy Mild Other Verified 01/29/21 17:34 gabapentin Allergy Mild Rash Verified 01/29/21 17:34 latex Allergy Mild Rash Verified 01/29/21 17:34 cyclobenzaprine Allergy Hives Verified 01/29/21 17:34 fentanyl Allergy Hallucinati Verified 01/29/21 17:34 ons metoclopramide [From Reglan] AdvReac Intermediate Nausea Verified 01/29/21 17:34 meperidine [From Demerol] AdvReac Mild Nausea Verified 01/29/21 17:34 morphine AdvReac Mild Nausea Verified 01/29/21 17:34 venlafaxine [From Effexor] AdvReac Mild Diarrhea Verified 01/29/21 17:34 Home Meds: Home Meds Omeprazole 40 mg PO BID 11/22/18 [History] Albuterol [Ventolin HFA] 1 puff IH Q4HR PRN 07/21/19 [History] lamoTRIgine 400 mg PO DAILY 08/24/19 [History] QUEtiapine [SEROquel] 400 mg PO BEDTIME 11/13/19 [History] Ibuprofen 800 mg PO Q8HR PRN 01/07/20 [History] LORazepam [Lorazepam] 2 mg PO QID 01/07/20 [History] Levothyroxine Sodium 137 mcg PO ACBREAKFAST 01/07/20 [History] methocarbamoL [Methocarbamol] 750 mg PO QID PRN #40 tablet 01/29/21 [Rx] Past Medical History - Past Health History Medical/Surgical History: Denies Medical/Surgical History HEENT History: Reports: Impaired Vision Cardiovascular History: Reports: None Respiratory History: Reports: COPD Gastrointestinal History: Reports: Cholelithiasis, Colon Polyp, GERD Genitourinary History: Reports: None 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 s/p L 3rd finger pinning 04/08/19. Revision 05/17/19. Revision 06/17/19. Neurology states needs cervical fusion surgery. Cervical fusion surgery August 2019. right ankle FX 06/08/20 Neurological History: Reports: Concussion, Seizure Other Neuro History: 1st seizure on 12/09/2019 Psychiatric History: Reports: ADHD, Addiction, Anxiety, Bipolar, Depression, Psych Hospitalization(s), PTSD, Suicide Attempt, Other (See Below) Other Psychiatric History: drug seeking behavior, deficient self management of pain, borderline personality disorder Endocrine/Metabolic History: Reports: Hypothyroidism Hematologic History: Reports: None Immunologic History: Reports: None Oncologic (Cancer) History: Reports: Breast, Uterine Other Oncologic History: thinks she had uterine cancer but not sure Dermatologic History: Reports: None - Infectious Disease History Infectious Disease History: Reports: Chicken Pox, MRSA - Past Surgical History Head Surgeries/Procedures: Reports: None HEENT Surgical History: Reports: Tonsillectomy Cardiovascular Surgical History: Reports: None Respiratory Surgical History: Reports: None GI Surgical History: Reports: Appendectomy, Cholecystectomy, Colonoscopy, Polypectomy Female Surgical History: Reports: Breast Reconstruction, Section, Hysterectomy, Mastectomy, Oophorectomy Endocrine Surgical History: Reports: None Neurological Surgical History: Reports: C-Spine Musculoskeletal Surgical History: Reports: Other (See Below) Other Musculoskeletal Surgeries/Procedures:: LEFT MIDDLE FINGER SURGERY x3 Oncologic Surgical History: Reports: Mastectomy Other Oncologic Surgeries/Procedures: bilateral Dermatological Surgical History: Reports: None Social & Family History - Family History Family Medical History: No Pertinent Family History - Tobacco Use Tobacco Use Status *Q: Current Every Day Tobacco User Years of Tobacco use: 25 Packs/Tins Daily: 1 - Caffeine Use Caffeine Use: Reports: Coffee, Soda - Recreational Drug Use Recreational Drug Use: No ED ROS GENERAL - Review of Systems Review Of Systems: See Below Constitutional: Reports: No Symptoms HEENT: Reports: Other (Mandibular pain) Respiratory: Reports: No Symptoms Cardiovascular: Reports: No Symptoms Endocrine: Reports: No Symptoms GI/Abdominal: Reports: No Symptoms : Reports: No Symptoms Musculoskeletal: Reports: Neck Pain, Muscle Pain, Muscle Stiffness Skin: Reports: No Symptoms Neurological: Reports: Headache, Numbness (Bilateral fingertips) Psychiatric: Reports: Anxiety Hematologic/Lymphatic: Reports: No Symptoms Immunologic: Reports: No Symptoms ED EXAM, UPPER BACK/NECK PAIN - Physical Exam Exam: See Below Exam Limited By: No Limitations General Appearance: Alert, Anxious, Moderate Distress Eye Exam: Bilateral Eye: EOMI, PERRL Throat/Mouth Exam: Normal Inspection, Normal Lips, Normal Oropharynx, Normal V oice, No Airway Compromise Head Exam: Normocephalic, Facial Tenderness (Mild tenderness over the marx without obvious ecchymosis or swelling) Neck Exam: Limited Range of Motion, Muscle Spasm (Bilateral), Paraspinous Muscle Tender (Bilateral posterior and sternocleidal), Stiff Neck, Tenderness, Tender Lateral. 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 II-XII nml As Tested, No Motor/Sensory Deficits, Alert, Normal Mood/Affect, Oriented x 3 Psychiatric: Anxious Skin Exam: Normal Color, Warm/Dry Lymphatic: No Adenopathy Course - Vital Signs Last Recorded V/S: Last Vital Signs Temp 36.3 C 01/29/21 17:34 Pulse 66 01/29/21 19:04 Resp 14 01/29/21 19:04 BP 106/70 01/29/21 19:04 Pulse Ox 95 01/29/21 19:04 - Orders/Labs/Meds Orders: Active Orders 24 hr Category Date Time Status Cervical Spine wo Cont [CT] Stat Exams 01/29/21 18:15 Taken Meds: Medications Discontinued Medications Generic Name Dose Route Start Last Admin Trade Name Humberto PRN Reason Stop Dose Admin Hydromorphone HCl 1 mg 01/29/21 18:15 01/29/21 18:27 Hydromorphone 1 Mg/Ml Syringe IM 01/29/21 18:16 1 mg ONETIME ONE Administration Methocarbamol 1,000 mg 01/29/21 18:20 01/29/21 18:25 Methocarbamol 500 Mg Tab PO 01/29/21 18:21 1,000 mg ONETIME ONE Administration Promethazine HCl 25 mg 01/29/21 19:10 01/29/21 19:18 Promethazine 25 Mg Tab PO 01/29/21 19:11 25 mg ONETIME STA Administration - Re-Assessments/Exams Free Text/Narrative Re-Assessment/Exam: 01/29/21 19:[address] of the cervical spine to assess for any dysfunction of the fusion plates or screws, malalignment of the cervical spine, or subluxation. The CT did not demonstrate any acute abnormalities. There was no precervical tissue swelling. The devices appear to be well-seated and screw secure. There were no acute fractures. The patient received Dilaudid 1 mg IM, methocarbamol 1000 mg p.o., and Phenergan 25 mg p.o. She has had significant improvement in her pain with this with the going down from a 9 out of 10 down to a 5 out of 10 in intensity. My plan is to treat her with the methocarbamol 750 mg 4 times daily for the next 5 days. She should continue to take ibuprofen or Aleve for pain. She may continue to ice the area to reduce spasm as well. Indications to return to the ED were discussed and the patient is in agreement with the plan and suitable for discharge in satisfactory condition. Departure - Departure Time of Disposition: 19:28 Disposition: Home, Self-Care 01 Clinical Impression: Cervical paraspinous muscle spasm Fall from standing Qualifiers: Encounter type: initial encounter Qualified Code(s): W19.XXXA - Unspecified fall, initial encounter Chin contusion Qualifiers: Encounter type: initial encounter Qualified Code(s): S00.83XA - Contusion of other part of head, initial encounter - Discharge Information Instructions: Cervical Strain and Sprain Rehab-SportsMed, Pain Medicine Instructions, [id number] Referrals: Anjali Branham DO [Primary Care Provider] - Care Plan Goals: Your CT the cervical spine was unremarkable for any new findings. The appliance appears to be well seated and intact. The majority of your pain is arising from straining the cervical muscles. I am putting you on methocarbamol 750 mg 4 times a day as needed for muscle spasm. You have enough prescribed for 10 days. Continue to take Tylenol or ibuprofen for the pain. Remember to ice the neck 15 to 20 minutes every couple hours you are awake. No heavy lifting for the next week. Sepsis Event Note (ED) - Evaluation Sepsis Screening Result: No Definite Risk - Focused Exam Vital Signs: Vital Signs Temp Pulse Resp BP Pulse Ox 01/29/21 19:04 66 14 106/70 95 01/29/21 17:34 36.3 C 81 18 130/86 99 01/29/21 17:30 36.3 C 81 18 130/86 99 - Problem List & Annotations (1) Cervical paraspinous muscle spasm SNOMED Code(s): 056241940 Code(s): M62.838 - OTHER MUSCLE SPASM Status: Acute Priority: High Current Visit: Yes (2) Chin contusion SNOMED Code(s): 108525755 Code(s): S00.83XA - CONTUSION OF OTHER PART OF HEAD, INITIAL ENCOUNTER Status: Acute Priority: High Current Visit: Yes Qualifiers: Encounter type: initial encounter Qualified Code(s): S00.83XA - Contusion of other part of head, initial encounter (3) Fall from standing SNOMED Code(s): 3540294 Code(s): W19.XXXA - UNSPECIFIED FALL, INITIAL ENCOUNTER Status: Acute Priority: High Current Visit: Yes Qualifiers: Encounter type: initial encounter Qualified Code(s): W19.XXXA - Unspecified fall, initial encounter - Problem List Review Problem List Initiated/Reviewed/Updated: Yes - My Orders Last 24 Hours: My Active Orders 01/29/21 18:15 Cervical Spine wo Cont [CT] Stat - Assessment/Plan Last 24 Hours: My Active Orders 01/29/21 18:15 Cervical Spine wo Cont [CT] Stat
--- NOTE | 2021-01-29 19:29 | CRLCT ---
HISTORY: Acute on chronic neck pain after a fall. TECHNIQUE: CT cervical spine without contrast. COMPARISON: CT cervical spine 05/17/2020. FINDINGS: Anterior fusion with plate and screws and interbody grafts at C3-C7. Hardware appears intact. No evidence of hardware loosening. Straightening of cervical lordosis. No subluxation. No fracture. Craniocervical junction is intact. No high-grade spinal canal stenosis. Mild foraminal stenosis on the right at C4-5. Moderate foraminal stenosis on the right at C5-6. Moderate bilateral foraminal stenosis at C6-7. Paraseptal emphysema in the lung apices. Patchy mucosal thickening bilateral paranasal sinuses. IMPRESSION: 1. No acute abnormality of cervical spine. 2. C3-C7 fusion without evidence of hardware complication. Dictated by David Li MD @ 01/29/2021 7:27:59 PM Please note that all CT scans at this facility use dose modulation, iterative reconstruction, and/or weight-based dosing when appropriate to reduce radiation dose to as low as reasonably achievable. Dictated by: David Li MD @ 01/29/2021 19:28:06 (Electronically Signed)
== END 2021-01-29 19:43 | disposition home or self-care (01) ==
LOC: JP.ED 17:15
DX: S00.83XA Contusion of other part of head, initial encounter (principal); M62.838 Other muscle spasm; E03.9 Hypothyroidism, unspecified; J44.9 Chronic obstructive pulmonary disease, unspecified; K21.9 Gastro-esophageal reflux disease without esophagitis; R56.9 Unspecified convulsions; Z79.899 Other long term (current) drug therapy; Z88.6 Allergy status to analgesic agent; Z91.048 Other nonmedicinal substance allergy status; Z88.8 Allergy status to other drugs, medicaments and biological substances; Z91.040 Latex allergy status; Z88.4 Allergy status to anesthetic agent; Z88.5 Allergy status to narcotic agent; Z72.0 Tobacco use; W18.30XA Fall on same level, unspecified, initial encounter
CPT/HCPCS: 72125; 96372; 99283; A9270; J1170

== ENCOUNTER 2022-12-30 15:01 | Emergency (ER) | payer BC, MEDICAID ==
[2022-12-30] MEDS ORDERED: HYDROmorphone 0.5 MG/0.5 ML Syringe IVPUSH ONE ×2 (15:51→16:52)
[2022-12-30] MEDS ORDERED: Lactated Ringers 1,000 ML IV SCH (16:00)
[2022-12-30 16:18] LABS: ESTIMATED GFR 79 mL/min (>60)
[2022-12-30] MEDS ORDERED: Sulfamethoxazole/Trimethoprim 800-160 MG Tab PO ONE (17:13)
[2022-12-30] MEDS ORDERED: Acetaminophen/HYDROcodone 325-5 MG Tab PO ONE (17:24)
== END 2022-12-30 18:22 | disposition home or self-care (01) ==
LOC: JP.ED 15:01 → EEVIPCON 15:01 → JP.ED 18:22
DX: L03.115 Cellulitis of right lower limb (principal); J44.9 Chronic obstructive pulmonary disease, unspecified; K21.9 Gastro-esophageal reflux disease without esophagitis; E03.9 Hypothyroidism, unspecified; Z79.899 Other long term (current) drug therapy; Z88.5 Allergy status to narcotic agent; Z91.048 Other nonmedicinal substance allergy status; Z91.040 Latex allergy status; Z88.8 Allergy status to other drugs, medicaments and biological substances; Z72.0 Tobacco use
CPT/HCPCS: 36415; 80053; 83605; 84145; 85025; 86140; 87040; 96365; 96366; 96375; 96376; 99283; A9270; J1170; J3370; J7050; J7120

== ENCOUNTER 2023-07-12 07:49 | Emergency (ER) | payer BC, MEDICAID ==
[2023-07-12] MEDS ORDERED: Albuterol/Ipratropium 3.0-0.5 MG/3 ML Neb Soln NEB ONE (08:56)
[2023-07-12 09:06] LABS: BASOPHILS ABSOLUTE AUTO 0.04 K/uL (0.00-0.10); BASOPHILS PERCENT AUTO 0.2 % (0.1-1.3); HEMATOCRIT 46.2 % (34.3-46.0); IMMATURE GRAN ABSOLUTE AUTO 0.08 K/uL (0.00-0.23); IMMATURE GRAN PERCENT AUTO 0.4 % (0.0-0.7); LYMPHOCYTES ABSOLUTE AUTO 0.91 K/uL (0.8-3.3); LYMPHOCYTES PERCENT AUTO 4.9 % (11.4-47.7); MEAN CORPUSCULAR HEMOGLOBIN 31.3 pg (31.6-35.5); MEAN CORPUSCULAR HGB CONC 34.6 g/dL (31.6-35.5); MEAN CORPUSCULAR VOLUME 90.4 fL (81.4-99.0); MONOCYTES ABSOLUTE AUTO 0.15 K/uL (0.20-0.90); MONOCYTES PERCENT AUTO 0.8 % (3.3-12.6); NEUTROPHILS ABSOLUTE AUTO 17.28 K/uL (1.0-7.6); NEUTROPHILS PERCENT AUTO 93.7 % (40.0-78.1); PLATELET COUNT,PLT 488 K/uL (130-375); RED BLOOD CELL COUNT 5.11 M/uL (3.77-5.24); WHITE BLOOD CELL COUNT,WBC 18.5 K/uL (3.2-11.0)
[2023-07-12 09:36] LABS: A/G RATIO 1.1 (1.2-2.2); ALANINE AMINOTRANSFERASE,ALT 27 U/L (12-78); ALBUMIN 3.9 g/dL (3.4-5.0); ALKALINE PHOSPHATASE 98 U/L (46-116); ASPARTATE AMNIOTRANSFERASE,AST 20 U/L (15-37); BILIRUBIN TOTAL 0.5 mg/dL (0.2-1.0); BLOOD UREA NITROGEN,BUN 10 mg/dL (7-18); CALCIUM 9.5 mg/dL (8.5-10.1); CARBON DIOXIDE,CO2 28 mmol/L (21-32); CHLORIDE,CL 99 mmol/L (100-108); CREATININE 1.1 mg/dL (0.6-1.0); EST CRCL DRUG DOSING (CG) 56.28 mL/min; ESTIMATED GFR 62 mL/min (>60); GLUCOSE RANDOM 177 mg/dL (74-106); POTASSIUM,K 5.2 mmol/L (3.6-5.2); PROTEIN TOTAL,TP 7.4 g/dL (6.4-8.2); SODIUM,NA 137 mmol/L (140-148)
[2023-07-12 09:38] LABS: ANION GAP 15.2 mmol/L (5.0-14.0)
[2023-07-12 10:26] LABS: CORONAVIRUS COVID-19 NAA NEGATIVE (NEGATIVE); INFLUENZA A NAA NEGATIVE (NEGATIVE); INFLUENZA B NAA NEGATIVE (NEGATIVE); RESPIRATORY SYNCYTIAL VIR NAA NEGATIVE (NEGATIVE)
== END 2023-07-12 11:08 | disposition home or self-care (01) ==
LOC: JP.ED 07:49
DX: J44.0 Chronic obstructive pulmonary disease with (acute) lower respiratory infection (principal); J20.9 Acute bronchitis, unspecified; J44.9 Chronic obstructive pulmonary disease, unspecified; E03.9 Hypothyroidism, unspecified; F17.210 Nicotine dependence, cigarettes, uncomplicated; Z20.822 Contact with and (suspected) exposure to COVID-19; Z88.8 Allergy status to other drugs, medicaments and biological substances; Z88.5 Allergy status to narcotic agent; Z88.6 Allergy status to analgesic agent; Z88.1 Allergy status to other antibiotic agents; Z91.040 Latex allergy status; Z79.899 Other long term (current) drug therapy
CPT/HCPCS: 0241U; 36415; 71046; 80053; 83605; 83880; 84145; 85025; 86140; 94640; 99285; 99284; J7620

== ENCOUNTER 2025-07-16 06:15 | Day surgery (SDC) | payer BC ==
[2025-07-16] MEDS: Lactated Ringers 1,000 ML IV SCH (07:04)
[2025-07-16] MEDS ORDERED: fentaNYL 50 MCG/ML SDV ONE (07:27)
[2025-07-16] MEDS ORDERED: Propofol 200 MG/20 ML SDV ONE ×2 (07:27→08:05)
== END 2025-07-16 09:20 | disposition home or self-care (01) ==
LOC: JP.SDS 06:15
PROVIDERS: ATTEND Surgery
DX: Z12.11 Encounter for screening for malignant neoplasm of colon (principal); D12.2 Benign neoplasm of ascending colon; Z88.5 Allergy status to narcotic agent; Z88.8 Allergy status to other drugs, medicaments and biological substances; Z91.09 Other allergy status, other than to drugs and biological substances
CPT/HCPCS: 00811; 45385; 88305; J2704; J3010; J7120

== ENCOUNTER 2025-08-25 07:49 | Day surgery (SDC) | payer BC ==
[2025-08-25] MEDS ORDERED: Propofol 200 MG/20 ML SDV ONE (08:18)
[2025-08-25] MEDS ORDERED: fentaNYL 50 MCG/ML SDV ONE (08:18)
[2025-08-25] MEDS: Lactated Ringers 1,000 ML IV SCH (08:40)
== END 2025-08-25 11:25 | disposition home or self-care (01) ==
LOC: JP.SDS 07:49
PROVIDERS: ATTEND Surgery
DX: K22.70 Barrett's esophagus without dysplasia (principal); K29.80 Duodenitis without bleeding; E03.9 Hypothyroidism, unspecified; F17.200 Nicotine dependence, unspecified, uncomplicated; Z88.5 Allergy status to narcotic agent; Z88.8 Allergy status to other drugs, medicaments and biological substances; Z91.09 Other allergy status, other than to drugs and biological substances; Z91.040 Latex allergy status; Z79.899 Other long term (current) drug therapy; Z79.890 Hormone replacement therapy
CPT/HCPCS: 00731; 43239; J2704; J3010; J7120

== ENCOUNTER 2025-10-06 08:49 | Day surgery (SDC) | payer BC ==
[2025-10-06] MEDS ORDERED: Midazolam 1 MG/ML 2 ML SDV ONE (09:55)
[2025-10-06] MEDS ORDERED: fentaNYL 50 MCG/ML SDV ONE (09:55)
[2025-10-06] MEDS ORDERED: Propofol 200 MG/20 ML SDV ONE ×2 (09:56→10:54)
[2025-10-06] MEDS: Lactated Ringers 1,000 ML IV SCH (09:58)
== END 2025-10-06 12:25 | disposition home or self-care (01) ==
LOC: JP.SDS 08:49
PROVIDERS: ATTEND Surgery
DX: K22.70 Barrett's esophagus without dysplasia (principal)
CPT/HCPCS: 00731-QZ; C1713; C1886; J2250; J2704; J3010; J7120